=== PATIENT | male | born 1965 | race Caucasian/White ===

== ENCOUNTER → 2020-05-08 08:13 | Outpatient (CLI) | payer OTHER, SELFPAY ==
--- NOTE | ~2020-05-08 | XR_ITS ---
XR abdomen/kub 1V 05/08/2020 09:03 INDICATION: Gross hematuria TECHNIQUE: KUB COMPARISON: None FINDINGS: Bowel gas pattern is normal. There is no evidence of free air, mass, organomegaly, ascites or obstruction. There are punctate left renal stones. The bones appear intact. IMPRESSION: 1: Left nephrolithiasis. Reviewed, dictated and finalized at location A. IMPRESSION: 1: Left nephrolithiasis.
--- NOTE | ~2020-05-08 | CT_ITS ---
EXAMINATION: CT abdomen pelvis wo/w con DATE: 05/08/2020 09:03 INDICATION: Gross hematuria TECHNIQUE: Computed tomography (CT) of the abdomen and pelvis was performed without and with 130 cc O mnipaque 350 intravenous contrast. The dose-length product was 2064.66 mGy-cm. Automated exposure con trol and iterative reconstruction technique were employed. COMPARISON: None. FINDINGS: Lung bases are unremarkable. Small hiatal hernia. Heart size normal. No significant pleural or pericardial effusion. There are punctate nonobstructing 1-2 mm bilateral renal stones. The liver, spleen, pancreas, adrenal glands are unremarkable. No ureteral stones or hydronephrosis. Bladder is decompressed. Nonobstructi ve bowel gas pattern. Normal appendix. No lymphadenopathy. Mild osteoarthritis of the hips. Ureters a re normal in course and caliber. Gallbladder is present. No free air or free fluid. No osteolytic or osteoblastic lesions. IMPRESSION: 1. Nonobstructing bilateral nephrolithiasis. Reviewed, dictated and finalized at location A.
[2020-05-08 08:35] LABS: Estimated Glomerular Filt Rate > 60
== END ==
PROVIDERS: Visit Provider Urology
DX: R31.0 Gross hematuria (principal); N20.0 Calculus of kidney
CPT/HCPCS: 74018; 74178; Q9967

== ENCOUNTER 2020-06-27 21:50 | Inpatient (IN) | payer OTHER, SELFPAY ==
--- NOTE | ~2020-06-27 | XR_ITS ---
XR chest 1V portable DATE: 06/27/2020 22:30 INDICATION: Shortness of breath. Covid-positive patient. Low pO2 level. TECHNIQUE: Portable upright AP chest views on 06/27/2020 at 2220 hours COMPARISON: None FINDINGS: Heart size is borderline. No pulmonary infiltrate or consolidation, pleural effusion or pneumothorax. Aortic calcification and mild unfolding. IMPRESSION: Borderline heart size; no active pulmonary disease Reviewed, dictated and finalized at location A. ARD/STEWARDESS SMOKE ROOM
--- NOTE | ~2020-06-27 | XR_ITS ---
EXAMINATION: XR chest 1V portable DATE: 07/02/2020 16:59 INDICATION: Shortness of breath. COVID. TECHNIQUE: frontal view of the chest was obtained. COMPARISON: Chest radiograph dated 06/27/2020 FINDINGS: There is been some interval progression in patchy airspace opacities in the right lower lung zone. Mi nimal change in more subtle opacities in the left lower lung zone. No pleural effusion or pneumothora x. The cardiomediastinal silhouette is normal. Moderate degenerative skeletal changes in the spine an d bilateral shoulders. IMPRESSION: 1. There is been some progression of patchy opacities in the bilateral lower lung zones consistent wi th pneumonia with differential including pulmonary edema. Reviewed, dictated and finalized at location H. EN PRESS FEEDER IMPRESSION: 1. There is been some progression of patchy opacities in the bilateral lower taylor ng zones consistent with pneumonia with differential including pulmonary edema.
--- NOTE | ~2020-06-27 | XR_ITS ---
EXAMINATION: XR chest 1V portable EXAM DATE: 07/08/2020 06:14 INDICATION: COVID-19 pneumonia . TECHNIQUE: Portable AP frontal chest x-ray was obtained. Comparison is made to prior examination from 07/07. FINDINGS: There is bilateral moderate amount of acute airspace disease with regions of confluence, bi basilar predominant. Appearance is most consistent with COVID-19 pneumonia. Upper lung zones are kevin r. Cardiomediastinal silhouette is normal. There is no pneumothorax suspected. There are no pleural e ffusions. There are mild bony degenerative changes. Mild interval progression in airspace disease compared to 07/05, but difficult to identify any change compared to 07/07. IMPRESSION: Moderate amount of bilateral acute airspace disease, clinical correlation. Reviewed, dictated and finalized at location B. STANT PROFESSOR OF PHILOSOPHY IMPRESSION: Moderate amount of bilateral acute airspace disease, clinical corre lation.
--- NOTE | ~2020-06-27 | XR_ITS ---
XR abdomen NG/feed tube insert INDICATION: Evaluate NG tube position. TECHNIQUE: Limited KUB perform for evaluating NG tube . COMPARISON: KUB dated 05/08/2020 FINDINGS: NG tube tip in the stomach and the side-port above the expected location of the GE junction . Recommend NG tube advancement. There is a right pneumothorax. There is extensive bilateral airspace consolidation. Visualized bowel gas pattern is nonspecific. IMPRESSION: 1: NG tube tip in the stomach, side-port above the expected location of the GE junction. Recommend a dvancement 5-6 cm. 2: Right pneumothorax incompletely visualized. 3: Extensive bilateral airspace disease which may represent pneumonia or edema. Reviewed, dictated and finalized at location A. STANT PROPERTY MANAGER IMPRESSION: 1: NG tube tip in the stomach, side-port above the expected location of the GE junction. Recommend advancement 5-6 cm. 2: Right pneumothorax incompletely visualized. 3: Extensive bilateral airspace disease which may represent pneumonia or edema .
--- NOTE | ~2020-06-27 | XR_ITS ---
EXAMINATION: XR chest 1V portable EXAM DATE: 07/07/2020 06:05 INDICATION: COVID-19 pneumonia . TECHNIQUE: Portable AP frontal chest x-ray was obtained. Comparison is made to prior examination from 07/05/2020. FINDINGS: There is bilateral acute airspace disease with regions of confluence, bibasilar predominant . Appearance is most consistent with COVID-19 pneumonia. Upper lung zones are clear. Cardiomediastina l silhouette is normal. There is no pneumothorax suspected. There are no pleural effusions. There are mild bony degenerative changes. Mild interval progression in airspace disease compared to 07/05. IMPRESSION: Mild progression in the moderate amount of bilateral acute airspace disease, clinical cor relation. Reviewed, dictated and finalized at location A. ICULUM DIRECTOR IMPRESSION: Mild progression in the moderate amount of bilateral acute airspace disease, clinical correlation.
--- NOTE | ~2020-06-27 | XR_ITS ---
XR chest 1V portable DATE: 07/12/2020 05:48 INDICATION: Covid 19 pneumonia TECHNIQUE: Portable AP chest on 07/12/2020 at 0522 hours COMPARISON: 07/11/2020 portable AP chest at 0604 hours FINDINGS: ET tube tip 3.2 cm above lori in satisfactory position. NG tube in body of stomach. Left upper stomach the catheter tip overlies the caudal aspect of the superior vena cava not far from the superior cavoatrial junction. Right thoracostomy tube. Slight residual right apical pneumothorax is suggested. Diffuse patchy bilateral infiltrates, greater in the lower lung zones, relatively stable since 2019. IMPRESSION: Slight residual right apical pneumothorax with right thoracostomy tube remains No significant change of extensive bilateral interstitial infiltrates, greater in the lower lung zone s, since 07/11/2020 Reviewed, dictated and finalized at location A. L DESIGNER IMPRESSION: Slight residual right apical pneumothorax with right thoracostomy t ube remains No significant change of extensive bilateral interstitial infiltrates, greater in the lower lung zones, since 07/11/2020
--- NOTE | ~2020-06-27 | XR_ITS ---
XR chest 1V portable 07/09/2020 06:04 Indication: CovidPneumonia Procedure: AP portable chest Comparison: Comparison to multiple prior studies sequentially, with oldest reviewed study dated 06/16. Findings: Diffuse bilateral airspace disease, compatible with pneumonia. Findings have progressed sin ce prior examination. No significant pleural effusion or pneumothorax. Stable cardiomediastinal silho uette. No acute osseous abnormality. Impression: 1: Progression of diffuse bilateral airspace disease, compatible with pneumonia. Reviewed, dictated and finalized at location A. SEARCH SPECIALIST Impression: 1: Progression of diffuse bilateral airspace disease, compatible with pneumonia .
--- NOTE | ~2020-06-27 | XR_ITS ---
XR chest 1V portable DATE: 07/13/2020 06:18 INDICATION: Respiratory failure TECHNIQUE: Portable AP chest on 07/13/2020 at 0522 hours COMPARISON: Portable AP chest on 07/12/2020 at 0522 hours FINDINGS: ET tube is 3.5 cm above lori. NG tube in stomach. Left upper extremity PIC catheter tip at superior cavoatrial junction approximately. Right thoracostomy tube is present. There is slight residual right apical pneumothorax. Diffuse patchy bilateral pulmonary interstitial infiltrates persist, relatively stable since 07/12/20 20. IMPRESSION: Slight residual right apical pneumothorax; right thoracostomy tube Diffuse patchy bilateral pulmonary interstitial infiltrates are relatively stable since 07/12/2020 Reviewed, dictated and finalized at location A. ROOM SALES ASSISTANT IMPRESSION: Slight residual right apical pneumothorax; right thoracostomy tube Diffuse patchy bilateral pulmonary interstitial infiltrates are relatively stab le since 07/12/2020
--- NOTE | ~2020-06-27 | XR_ITS ---
EXAMINATION: XR chest 1V portable EXAM DATE: 07/05/2020 10:39 INDICATION: Hypoxic resp failure. TECHNIQUE: Portable AP frontal chest x-ray was obtained. Comparison is made to prior examination from 07/02/2020, 06/27/2020. FINDINGS: Again there is bibasilar acute airspace disease with small regions of confluence, right juice g base more affected than left. This has progressed slightly compared to 07/02, developed compared to 06/27. Appearance is most consistent with COVID-19 pneumonia. Upper lung zones are clear. Cardiomedi astinal silhouette is normal. There is no pneumothorax suspected. There are no pleural effusions. The re are mild bony degenerative changes. IMPRESSION: 1. Mild progression in the now moderate amount of bibasilar acute airspace disease, clinical correl ation. Reviewed, dictated and finalized at location A. RY CUTTER IMPRESSION: 1. Mild progression in the now moderate amount of bibasilar acute airspace di [facility] [place], clinical correlation.
--- NOTE | ~2020-06-27 | XR_ITS ---
XR chest 1V portable 07/10/2020 06:05 Indication: CovidPneumonia Procedure: AP portable chest Comparison: Comparison to multiple prior studies sequentially, with oldest reviewed study dated 06/17 Findings: Stable diffuse bilateral airspace disease, compatible with pneumonia. Heart size normal. No pleural effusion or pneumothorax.. Impression: 1: Stable diffuse bilateral airspace disease, compatible with pneumonia. Reviewed, dictated and finalized at location A. RVISOR NEWSPAPER DELIVERIES Impression: 1: Stable diffuse bilateral airspace disease, compatible with pneumonia.
--- NOTE | ~2020-06-27 | XR_ITS ---
XR chest 1V portable DATE: 07/11/2020 06:49 INDICATION: Covid 19 pneumonia TECHNIQUE: Portable AP chest on 07/11 2020 at 0604 hours COMPARISON: 07/10/2020 portable AP chest at 1317 hours FINDINGS: ET tube tip 4.9 cm above lori, within satisfactory range. NG tube in stomach. Left upper extremity PIC catheter tip is situated near the superior cavoatrial junction. Right thoracostomy tube is unchanged in position. Slight residual right apical pneumothorax, stable since 07/10. There are diffuse bilateral interstitial infiltrates, greater in the lower lung zones IMPRESSION: Stable slight residual right apical pneumothorax; right chest tube unchanged in position Diffuse bilateral pulmonary interstitial infiltrates, greatest in the lower lung zones, relatively st able since Reviewed, dictated and finalized at location A. TRICAL INSTALLATION INSPECTOR IMPRESSION: Stable slight residual right apical pneumothorax; right chest tube unchanged in position Diffuse bilateral pulmonary interstitial infiltrates, greatest in the lower juice g zones, relatively stable since
--- NOTE | ~2020-06-27 | XR_ITS ---
XR chest-chest tube insert/pos 07/10/2020 13:18 Indication: Chest tube insertion Procedure: AP portable chest Comparison: Comparison to multiple prior studies sequentially, with oldest reviewed study dated 06/17. Findings: Endotracheal tube tip 3.7 cm above the lori. NG tube in the stomach. Significant decrease d size of right pneumothorax post chest tube insertion. Persistent diffuse bilateral airspace disease , consistent with pneumonia. No pleural effusion. No acute osseous abnormality. Impression: 1: Significant reduction in size of right pneumothorax post chest tube insertion. Small residual apic al pneumothorax. 2: Persistent diffuse bilateral airspace disease, compatible with pneumonia. Reviewed, dictated and finalized at location A. S AND BUSINESS DEVELOPMENT MANAGER Impression: 1: Significant reduction in size of right pneumothorax post chest tube insertio n. Small residual apical pneumothorax. 2: Persistent diffuse bilateral airspace disease, compatible with pneumonia.
--- NOTE | ~2020-06-27 | XR_ITS ---
XR chest 1V portable DATE: 07/14/2020 06:00 INDICATION: Respiratory failure. Right pneumothorax. TECHNIQUE: Portable AP chest on 07/14/2020 at 0527 hours COMPARISON: 07/13/2020 portable AP chest at 0522 hours FINDINGS: Right thoracostomy tube is again noted. No pneumothorax is evident. ET tube 4 cm above lori. NG tube in stomach. Left upper extremity PIC catheter tip overlies superior vena cava. Extensive diffuse bilateral pulmonary infiltrates are again noted, moderately increased since 020. IMPRESSION: Moderately increased bilateral pulmonary infiltrates since 07/05/2020 Reviewed, dictated and finalized at location A. ERY STOCK CLERK IMPRESSION: Moderately increased bilateral pulmonary infiltrates since 07/05/20 20
--- NOTE | ~2020-06-27 | XR_ITS ---
EXAMINATION: XR chest ET placement EXAM DATE: 07/10/2020 12:55 INDICATION: Intubated. COVID-19. TECHNIQUE: Portable AP frontal chest x-ray was obtained. Comparison is made to prior examination from earlier same date. FINDINGS: Interval development of moderate to large right-sided pneumothorax. Endotracheal tube tip i s 5 centimeters above the lori. There is a nasogastric tube seen with tip collimated off the study , but below the left hemidiaphragm. There is moderate to severe amount of bilateral acute airspace disease consistent with COVID-19 pneum onia. Cardiomediastinal silhouette is normal. There are no osseous abnormalities identified. IMPRESSION: 1. Moderate to large right pneumothorax. Reportedly surgeon is already placing chest tube. 2. Moderate to severe amount of bilateral acute airspace disease unchanged. Reviewed, dictated and finalized at location B. OIL TRUCK DRIVER IMPRESSION: 1. Moderate to large right pneumothorax. Reportedly surgeon is already placin g chest tube. 2. Moderate to severe amount of bilateral acute airspace disease unchanged.
[2020-06-27 22:07] VITALS: BP 142/88; PULSE 85; RESP 27; TEMP 36.9; O2SAT 73
--- NOTE | 2020-06-27 22:10 | ECG_ITS ---
Measurements Intervals [place] Rate: 85 P: -57 AL: 90 QRS: 11 QRSD: 96 T: 5 QT: 349 QTc: 416 Interpretive Statements ECTOPIC ATRIAL RHYTHM WITH SHORT AL INTERVAL DELAYED PRECORDIAL R/S TRANSITION BORDERLINE ST-T WAVE ABNORMALITY- ANTEROLAT/INF LEADS BASELINE ARTIFACT- I, II, III, AVR, AVL, AVF ABNORMAL ECG Electronically Signed On 06-28-2020 9:04:44 GANG DRILL OPERATOR by Fabio Torres D.O.
[2020-06-27 22:22] LABS: Basophils Percent Auto 0.2 % (0.2-1.2); Hematocrit 41.2 % (42.0-52.0); Hemoglobin 14.1 g/dL (14.0-18.0); Immature Granulocyte Absolute 0.03 K/mm3 (0.00-0.031); Immature Granulocyte Percent A 0.5 % (0-0.5); Lymphocytes Percent Auto 13.8 % (18.3-44.2); Mean Corpuscular HGB Conc 34.2 g/dl (32-36); Mean Corpuscular Hemoglobin 32.4 pg (26-34); Mean Corpuscular Volume 94.7 fl (80-100); Mean Platelet Volume 9.5 fl (7.4-10.4); Monocytes Absolute Auto 0.5 K/mm3 (0.1-0.6); Monocytes Percent Auto 7.4 % (2.6-8.5); Neutrophils Absolute Auto 5.1 K/mm3 (1.3-6.7); Neutrophils Percent Auto 78.1 % (45.5-73.1); Platelet Count Result 166 k/mm3 (150-375); Red Blood Count 4.35 M/mm3 (4.6-6.20); Red Cell Distribution Width 12.6 % (11.5-14.5); White Blood Count 6.5 K/mm3 (4.5-10.0)
[2020-06-27 22:25] VITALS: PULSE 86; O2SAT 98
[2020-06-27 22:38] LABS: Anion Gap 8 mmol/L (8-16); Blood Urea Nitrogen 20 mg/dL (9-20); Calcium 9.1 mg/dL (8.4-10.2); Carbon Dioxide 30 mmol/L (22-30); Chloride 99 mmol/L (98-107); Estimated CRCL calculation 75 ml/min; Estimated Glomerular Filt Rate > 60; Glucose 107 mg/dL (75-110); Potassium 3.6 mmol/L (3.4-5.0); Sodium 137 mmol/L (137-145)
[2020-06-27 23:13] VITALS: BP 112/72; PULSE 95; RESP 27; O2SAT 95
[2020-06-27] MEDS: DEXAMETHASONE SOD PHOS INJ 4 MG/ML VIAL 6 MG IV PUSH (23:13)
--- NOTE | 2020-06-27 23:32 | ED.SOB ---
HPI - SOB/Dyspnea General Chief Complaint: Shortness of Breath/Dyspnea Stated Complaint: low pulse ox Time Seen by Provider: 06/27/20 22:05 History of Present Illness HPI Narrative: Patient is a 54-year-old male who presents to the ER with shortness of breath. 6 days ago patient began developing symptoms of COVID-19 including cough and shortness of breath. Reports he was tested 2 days ago and test came back positive today. Reports shortness of breath has increased recently. purchased a pulse oximeter that showed his oxygen saturation was in the 80s so he came to the ER to be evaluated. No chest pain or chest pressure. He is without nausea or vomiting. He has a wet productive cough. No real sinus congestion or sore throat. He thinks he may have been exposed when he went to have a endoscopy performed about 12 days prior to his symptoms starting. Related Data Home Medications Medication Instructions Recorded Confirmed azithromycin 06/27/20 Nexium 40 mg PO DAILY 06/28/20 06/28/20 Allergies Allergy/AdvReac Type Severity Reaction Status Date / Time No Known Allergies Allergy Verified 06/28/20 01:04 Review of Systems Review of Systems: All systems reviewed & are unremarkable except as noted in HPI and below Constitutional: Constitutional: Denies chills, Reports fatigue and Denies fever(s) ENT: Denies nasal congestion and Denies sore throat Respiratory: Respiratory: Reports cough, Reports dyspnea and Denies wheezing PMFSH Past Medical History Medical History (Updated 06/28/20 @ 01:06 by Robby Cazares MD) Barretts esophagus GERD (gastroesophageal reflux disease) Surgical History Surgical History (Updated 06/28/20 @ 00:59 by Robby Cazares MD) H/O inguinal hernia repair Family History Family History (Updated 06/28/20 @ 00:49 by Destini Guerra RN) Mother Colon cancer Diabetes mellitus Father Colon cancer Social History Social History Smoking status: Former smoker Tobacco type: cigarettes Alcohol intake: current Drinks per week: 14 Substance use: never Gender identity (if verbalized by the patient): Male Spiritual care concerns: No Exam Narrative: Exam Narrative: GENERAL: Well-appearing, well-nourished, and in no acute distress. HEAD: Normocephalic, atraumatic. CHEST: Diffuse faint crackles. No respiratory distress. HEART: Regular rate and rhythm. Normal peripheral pulses. ABDOMEN: Soft, nontender, nondistended. EXTREMITIES: Normal range of motion. No edema. SKIN: Warm, dry, no rash. NEURO: Alert and oriented x3. PSYCH: Normal mood and affect. Course Course Emergency Course: Patient persistently oxygen dependent. Admit to hospitalist service, given IV Decadron. Vital Signs Vital signs: Vital Signs Temperature 98.5 F 06/27/20 22:07 Pulse Rate 85 06/27/20 22:07 Respiratory Rate 27 H 06/27/20 22:07 Blood Pressure 142/88 H 06/27/20 22:07 Pulse Oximetry 73 L 06/27/20 22:07 Temperature 98.5 F 06/27/20 22:07 Pulse Rate 70 06/28/20 00:20 Respiratory Rate 23 H 06/28/20 00:20 Blood Pressure 111/77 06/28/20 00:20 Pulse Oximetry 96 06/28/20 00:20 MDM - SOB/Dyspnea Lab Data Result diagrams: 06/27/20 22:12 06/27/20 22:12 Labs: Lab Results 06/27/20 06/27/20 Range/Units 22:12 22:12 WBC 6.5 (4.5-10.0) K/mm3 RBC 4.35 L (4.6-6.20) M/mm3 Hgb 14.1 (14.0-18.0) g/dL Hct 41.2 L (42.0-52.0) % MCV 94.7 (80-100) fl MCH 32.4 (26-34) pg MCHC 34.2 (32-36) g/dl RDW 12.6 (11.5-14.5) % Plt Count 166 (150-375) k/mm3 MPV 9.5 (7.4-10.4) fl Immature Gran % (Auto) 0.5 (0-0.5) % Neut % (Auto) 78.1 H (45.5-73.1) % Lymph % (Auto) 13.8 L (18.3-44.2) % [place] % (Auto) 7.4 (2.6-8.5) % Eos % (Auto) 0.0 (0-4.4) % Baso % (Auto) 0.2 (0.2-1.2) % Lymph # (Auto) 0.90 (0.9-3.2) K/mm3 [place] # (Auto) 0.5 (0.1-0.6) K/mm3 Eos # (Auto) 0.0 (0-0.3
--- NOTE | 2020-06-27 23:51 | PM.IMHP ---
H&P: HPI History of Present Illness Date/Time: 06/27/20 23:51 Chief complaint: SOB. Narrative: Danny Alfaro is a 54 year old male with PMHx significant for GERD, former Tobacco user, drinks daily although has not been drinking since he got sick. Patient was having cough and sob was tested for Covid that came back positive 2 days after, purchased pulse oxymeter to monitor oxygen levels at home and was in the 80's upon presentation to ED was in the 70's. Patient denies loss of smell or taste, has had fevers, and chills with it, dry cough non productive of sputum, sob, decreased appetite, no n/v/abdominal pain/diarrhea. Patient has been in his usual state of health prior to this. Preliminary work up is significant for a positive Covid 19, chest xr with no infiltrates. Review of Systems Review of Systems: Narrative: Fevers, chills, dry cough, sob. Positive Covid 19. Eyes: Comments: no vision changes. ENT: Comments: no ear ache, no throat pain, no nasal congestion or discharge. Cardiovascular: Comments: no chest pain, no leg swelling. Respiratory: Comments: dry cough, sob. Gastrointestinal: Comments: no n/v/diarrhea/abdominal pain. Musculoskeletal: Comments: no joint pain, no joint swelling. Integumentary/Breasts: Comments: no rashes. Neurologic: Comments: no sensorymotor deficit. Hematologic/Lymphatic: Comments: no LAP PMFSH Past Medical History Medical History (Updated 06/28/20 @ 03:35 by Lynnette Blanco MD) Barretts esophagus GERD (gastroesophageal reflux disease) Surgical History Surgical History (Updated 06/28/20 @ 00:59 by Robby Cazares MD) H/O inguinal hernia repair Family History Family History (Updated 06/28/20 @ 00:49 by Destini Guerra RN) Mother Colon cancer Diabetes mellitus Father Colon cancer Social History Social History Smoking status: Former smoker Tobacco type: cigarettes Alcohol intake: current Drinks per week: 14 Substance use: never Gender identity (if verbalized by the patient): Male Spiritual care concerns: No Meds Home Medications and Allergies Home Medications Medication Instructions Recorded Confirmed Type azithromycin [Zithromax Z-Rinku] 250 mg PO DAILY 06/27/20 06/28/20 History Nexium 40 mg PO DAILY 06/28/20 06/28/20 History Allergies Allergy/AdvReac Type Severity Reaction Status Date / Time No Known Allergies Allergy Verified 06/28/20 01:04 Vital Signs Vital Signs - 24 hr 06/27/20 22:07 06/27/20 22:25 06/27/20 23:13 Temperature 98.5 F Pulse Rate 85 86 95 Respiratory Rate 27 H 27 H Blood Pressure 142/88 H 112/72 Pulse Oximetry 73 L 98 95 Exam Narrative: Exam Narrative: Lying in bed, well appearing. Const: General: cooperative, comfortable, no acute distress, alert, awake, Physically active and other (Acutely ill looking.) Nutritional Appearance: average body habitus Orientation/consciousness: patient oriented x3 HENMT: Head: normal to inspection and normocephalic Ears: hearing grossly normal bilaterally General nose exam: Normal external nose present Face and sinus: normal facial exam Mouth: Yes Normal oral and palatal mucosa present Eyes: General: appearance normal, both eyes and all related structures Pupils: Equal, round and reactive pupils present EOM: EOMs intact bilaterally Neck: Neck: normal visual inspection, no lymphadenopathy and no JVD Thyroid: thyroid normal Resp: Effort & Inspection: normal respiratory effort and able to speak in complete sentences Auscultation: clear to auscultation bilaterally Cardio: Jugular venous distension: no JVD Rate: regular rate Rhythm: regular rhythm GI: Inspection: normal to inspection GI Palp: Yes Soft to palpation and Yes No hepatosplenomegaly present Auscultation: normal bowel sounds Skin: General skin exam: no rashes or lesions noted Lesions: no lesions Rashes: no rashes Hair: normal Nails: normal Neuro: General: patient oriented x3 a
[2020-06-27 23:57] VITALS: BP 110/74; PULSE 80; RESP 23; O2SAT 95
[2020-06-28] VITALS (13 sets, daily range): BP systolic 106–134; BP diastolic 54–77; PULSE 66–95; RESP 16–23; TEMP 36.4–38.9; O2SAT 90–96; BMI 30.2
--- NOTE | 2020-06-28 00:40 | PC.NURSE ---
This patient, Danny Alfaro, was admitted to [facility] Surg Room 324-01. Patient/family oriented to hospital policies and general routines including ID bracelet, bed and alarms, visiting hours, pain management, procedures, bathroom and other care routines, personal items, smoking policy, room service/diet, and visiting hours. Information on how to activate the Rapid Response Team has been discussed. Patient/Family are encouraged to report perceived risks to care and to ask questions if they do not understand what they are told or what they should do.
[2020-06-28] MEDS: ACETAMINOPHEN 325 MG TABLET 650 MG PO ×3 (01:14→22:05)
[2020-06-28 04:22] LABS: Basophils Percent Auto 0.2 % (0.2-1.2); Hematocrit 38.1 % (42.0-52.0); Hemoglobin 13.2 g/dL (14.0-18.0); Immature Granulocyte Absolute 0.04 K/mm3 (0.00-0.031); Immature Granulocyte Percent A 0.7 % (0-0.5); Lymphocytes Absolute Auto 0.35 K/mm3 (0.9-3.2); Lymphocytes Percent Auto 6.4 % (18.3-44.2); Mean Corpuscular HGB Conc 34.6 g/dl (32-36); Mean Corpuscular Hemoglobin 32.6 pg (26-34); Mean Corpuscular Volume 94.1 fl (80-100); Mean Platelet Volume 9.4 fl (7.4-10.4); Monocytes Absolute Auto 0.2 K/mm3 (0.1-0.6); Monocytes Percent Auto 3.5 % (2.6-8.5); Neutrophils Absolute Auto 4.8 K/mm3 (1.3-6.7); Neutrophils Percent Auto 89.2 % (45.5-73.1); Platelet Count Result 143 k/mm3 (150-375); Red Blood Count 4.05 M/mm3 (4.6-6.20); Red Cell Distribution Width 12.5 % (11.5-14.5); White Blood Count 5.4 K/mm3 (4.5-10.0)
[2020-06-28 04:33] LABS: Alanine Aminotransferase 52 U/L (4-50); Albumin Level 3.6 g/dL (3.5-5.1); Alkaline Phosphatase 63 U/L (38-126); Aspartate Amino Transferase 69 U/L (17-59); Bilirubin Indirect 0.4 mg/dL (0-1.1); Bilirubin,Total 0.5 mg/dL (0.2-1.3)
[2020-06-28] MEDS: REMDESIVIR 200 MG/NS 250 ML 200 MG/250 ML BAG 250 MG IVPB (05:55)
[2020-06-28] MEDS: ALBUTEROL SULFATE (*SP) AEROSOL 1 PUFF 4 PUFF INHALATION ×4 (07:47→22:06)
[2020-06-28] MEDS: HEPARIN SODIUM 5,000 UNITS/ML VIAL 5000 UNITS SUB-Q (09:44)
[2020-06-28] MEDS: PANTOPRAZOLE 40 MG TABLET PO (09:44)
[2020-06-28] MEDS: DEXAMETHASONE 2 MG TABLET 6 MG PO (12:00)
--- NOTE | 2020-06-28 13:10 | PM.IMPN ---
Progress Note: A&P Assessment and Plan (1) Pneumonia due to 2019 novel coronavirus: Code(s): U07.1 - COVID-19; J12.89 - Other viral pneumonia Status: Acute (2) Acute respiratory failure with hypoxia: Code(s): J96.01 - Acute respiratory failure with hypoxia Status: Acute (3) COVID-19: Code(s): U07.1 - COVID-19 Status: Acute (4) Hypoxia: Code(s): R09.02 - Hypoxemia Status: Acute Additional Plan # COVID-19 pneumonia # acute hypoxic respiratory failure - continue supplemental oxygen to keep oxygen saturation greater 90%, currently on 4 L oxygen - started remdesivir/dexamethasone 06/28- - supplements: zinc, vitamin-C, vitamin-D - MDI: Albuterol - Tylenol for fever - incentive spirometer q.2 hour while awake - Cough: Guaifenesin 100 mg q.4 hours - nausea: zofran #other conditions -GERD: Nexium at home, given Protonix Diet: Regular DVT prophylaxis: Lovenox 40mg BID for covid-19 GI prophylaxis: Protonix, on steroids Code status: Full code Disposition: Medical floor Subjective Date/time seen: 06/28/20 13:10 Patient examined bedside. Patient diagnosis COVID-19 06/25/2020. yesterday he was admitted started on 2 L of oxygen, this morning he has been up titrated to 4 L. Started on Remdesivir and dexamethasone. continue supportive care. Patient endorses fever, cough with yellow sputum, chills, chest pain with cough. Denies abdominal pain, diarrhea, dysuria, dysguesia. Review of Systems Review of Systems: All systems reviewed & are unremarkable except as noted in HPI and below Exam Narrative: Exam Narrative: - GENERAL: pleasant male in no acute distress breathing comfortably on 4L O2 - EYES: EOMI. Anicteric. - HENT: Moist mucous membranes. No scleral icterus. - LUNGS: Clear to auscultation bilaterally, no wheezing, rhonchi, or rales. - CARDIOVASCULAR: Regular rate and rhythm. No murmur. No JVD. - ABDOMEN: Soft, non-tender and non-distended. No palpable masses. - EXTREMITIES: No edema. Peripheral pulses 2+. Non-tender. - NEUROLOGIC: No focal neurological deficits. CN II-XII grossly intact. - PSYCHIATRIC: Awake, Alert and oriented x 3. Appropriate mood and affect. - SKIN: No rashes or lesions. Warm. - LYMPH: No cervical lymphadenopathy. Objective Data Vital Signs Vital Signs: Vital Signs - 24 hr 06/27/20 22:07 06/27/20 22:25 06/27/20 23:13 Temperature 36.9 C Pulse Rate 85 86 95 Respiratory Rate 27 H 27 H Blood Pressure 142/88 H 112/72 Pulse Oximetry 73 L 98 95 06/27/20 23:57 06/28/20 00:20 06/28/20 00:40 Temperature 38.9 C H Pulse Rate 80 70 81 Respiratory Rate 23 H 23 H 20 Blood Pressure 110/74 111/77 123/73 Pulse Oximetry 95 96 91 06/28/20 01:05 06/28/20 02:14 06/28/20 02:45 Temperature 37.3 C Pulse Rate 81 Respiratory Rate 20 Blood Pressure Pulse Oximetry 91 91 06/28/20 04:00 06/28/20 07:48 06/28/20 08:00 Temperature 37.3 C 36.7 C Pulse Rate 66 87 79 Respiratory Rate 22 H 18 18 Blood Pressure 106/54 L 129/65 Pulse Oximetry 94 92 90 06/28/20 12:00 Temperature 37.6 C H Pulse Rate 95 Respiratory Rate 16 Blood Pressure 110/64 Pulse Oximetry 90 Intake/Output Intake/Output: Intake & Output 06/25/20 06/26/20 06/27/20 06/28/20 23:59 23:59 23:59 23:59 Intake Total 550 Output Total 0 Balance 550 Meds/Results Medications: Active Medications Generic Name Dose Route Start Last Admin Trade Name Freq PRN Reason Stop Dose Admin Acetaminophen 650 mg 06/27/20 23:51 06/28/20 12:15 Acetaminophen 325 Mg Tablet PO 650 mg Q4H PRN Administration Mild Pain (1-3) or Fever Hydrocodone Bitart/Acetaminophen 1 tab 06/27/20 23:38 Hydrocodone/Acetaminophen (*Crx) 5-325 Mg Tablet PO Q4H PRN Pain Rated 4-6 Al Hydrox/Mg Hydrox/Simethicone 30 ml 06/27/20 23:51 Mag Hydrox/Al Hydrox/Simeth 30 Ml Udc PO QID PRN Dyspepsia Albuterol 4 puff 06/28/20 08:00 06/28/20 12:57
[2020-06-28] MEDS: ZINC SULFATE 220 MG CAPSULE PO (15:38)
[2020-06-28] MEDS: CHOLECALCIFEROL 1,000 UNITS TABLET 1000 UNITS PO (15:38)
[2020-06-28] MEDS: ASCORBIC ACID 500 MG TABLET PO (15:38)
[2020-06-28] MEDS: ENOXAPARIN 40 MG/0.4 ML SYRINGE SUB-Q (22:05)
[2020-06-29] VITALS (12 sets, daily range): BP systolic 102–118; BP diastolic 58–69; PULSE 51–81; RESP 18–22; TEMP 36.4–36.8; O2SAT 88–97
[2020-06-29] MEDS: REMDESIVIR 100 MG/NS 250 ML 100 MG/250 ML BAG 250 MG IVPB (06:31)
[2020-06-29 06:41] LABS: Alanine Aminotransferase 85 U/L (4-50); Albumin Level 3.6 g/dL (3.5-5.1); Alkaline Phosphatase 64 U/L (38-126); Anion Gap 12 mmol/L (8-16); Aspartate Amino Transferase 114 U/L (17-59); Bilirubin,Total 0.5 mg/dL (0.2-1.3); Blood Urea Nitrogen 25 mg/dL (9-20); Calcium 9.3 mg/dL (8.4-10.2); Carbon Dioxide 26 mmol/L (22-30); Chloride 98 mmol/L (98-107); Estimated CRCL calculation 93 ml/min; Estimated Glomerular Filt Rate > 60; Glucose 123 mg/dL (75-110); Potassium 3.8 mmol/L (3.4-5.0); Sodium 136 mmol/L (137-145)
--- NOTE | 2020-06-29 08:28 | PC.NURSE ---
Called and notified Dr Rizvi of pt o2 stat dereasing to 85 on 4lpm nc. pt slow increased to 90% on High flow nasal cannula. no complaint of sob at this time. Doctor said if we have to put pt on 15l we will have to use NRB over nasal cannula.
[2020-06-29] MEDS: DEXAMETHASONE 2 MG TABLET 6 MG PO (08:40)
[2020-06-29] MEDS: ENOXAPARIN 40 MG/0.4 ML SYRINGE SUB-Q ×2 (08:40→21:13)
[2020-06-29] MEDS: ACETAMINOPHEN 325 MG TABLET 650 MG PO (08:41)
[2020-06-29] MEDS: PANTOPRAZOLE 40 MG TABLET PO (08:41)
[2020-06-29] MEDS: ASCORBIC ACID 500 MG TABLET PO (08:41)
[2020-06-29] MEDS: ZINC SULFATE 220 MG CAPSULE PO (08:41)
[2020-06-29] MEDS: CHOLECALCIFEROL 1,000 UNITS TABLET 1000 UNITS PO (08:42)
[2020-06-29] MEDS: ALBUTEROL SULFATE (*SP) AEROSOL 1 PUFF 4 PUFF INHALATION ×4 (09:33→21:50)
--- NOTE | 2020-06-29 10:53 | PM.IMPN ---
Progress Note: A&P Assessment and Plan (1) Pneumonia due to 2019 novel coronavirus: Code(s): U07.1 - COVID-19; J12.89 - Other viral pneumonia Status: Acute (2) Acute respiratory failure with hypoxia: Code(s): J96.01 - Acute respiratory failure with hypoxia Status: Acute (3) COVID-19: Code(s): U07.1 - COVID-19 Status: Acute Assessment and Plan: Started Remdesivir + Decadron. (4) Hypoxia: Code(s): R09.02 - Hypoxemia Status: Acute Additional Plan # COVID-19 pneumonia # acute hypoxic respiratory failure - continue supplemental oxygen to keep oxygen saturation greater 90%, currently on 9 L oxygen - started remdesivir/dexamethasone 06/28- - supplements: zinc, vitamin-C, vitamin-D - MDI: Albuterol scheduled and p.r.n. - Tylenol for fever - incentive spirometer q.2 hour while awake - Cough: Guaifenesin 200 mg q.4 hours - nausea: zofran - Adding ibuprofen for headache - will trend inflammatory markers Q 48 hours #other conditions -GERD: Nexium at home, given Protonix, adding Tums - may have underlying sleep apnea will need evaluation outpatient Diet: Regular DVT prophylaxis: Lovenox 40mg BID for covid-19 GI prophylaxis: Protonix, on steroids Code status: Full code Disposition: Medical floor Social: Updated [phone] on 06/29/2020 Subjective Date/time seen: 06/29/20 10:53 patient examined. Overnight he has oxygen saturation dropped to 84%, was put on 11 L high-flow oxygen. He may have underlying sleep apnea. I called and discussed with his and updated her on his clinical course. Currently he is on 9 L oxygen sitting comfortably. Starting Tums for acid reflux on top of the Protonix he is on likely irritation from steroids. Review of Systems Review of Systems: All systems reviewed & are unremarkable except as noted in HPI and below Exam Narrative: Exam Narrative: - GENERAL: pleasant male in no acute distress breathing comfortably on 9L O2 - EYES: EOMI. Anicteric. - HENT: Moist mucous membranes. No scleral icterus. - LUNGS: Clear to auscultation bilaterally, no wheezing, rhonchi, or rales. - CARDIOVASCULAR: Regular rate and rhythm. No murmur. No JVD. - ABDOMEN: Soft, non-tender and non-distended. No palpable masses. - EXTREMITIES: No edema. Peripheral pulses 2+. Non-tender. - NEUROLOGIC: No focal neurological deficits. CN II-XII grossly intact. - PSYCHIATRIC: Awake, Alert and oriented x 3. Appropriate mood and affect. - SKIN: No rashes or lesions. Warm. - LYMPH: No cervical lymphadenopathy. Objective Data Vital Signs Vital Signs: Vital Signs - 24 hr 06/28/20 12:00 06/28/20 16:00 06/28/20 16:05 Temperature 37.6 C H 36.4 C L Pulse Rate 95 83 84 Respiratory Rate 16 18 18 Blood Pressure 110/64 134/74 Pulse Oximetry 90 92 06/28/20 16:07 06/28/20 20:00 06/29/20 00:00 Temperature 36.6 C 36.7 C Pulse Rate 89 70 68 Respiratory Rate 18 18 20 Blood Pressure 118/62 118/68 Pulse Oximetry 94 96 91 06/29/20 03:49 06/29/20 04:00 06/29/20 08:00 Temperature 36.7 C Pulse Rate 81 65 58 L Respiratory Rate 18 20 18 Blood Pressure 112/62 Pulse Oximetry 95 90 90 06/29/20 09:34 Temperature Pulse Rate Respiratory Rate Blood Pressure Pulse Oximetry 90 Intake/Output Intake/Output: Intake & Output 06/26/20 06/27/20 06/28/20 06/29/20 23:59 23:59 23:59 23:59 Intake Total 2140 700 Output Total 950 800 Balance 1190 -100 Meds/Results Medications: Active Medications Generic Name Dose Route Start Last Admin Trade Name Freq PRN Reason Stop Dose Admin Acetaminophen 650 mg 06/27/20 23:51 06/29/20 08:41 Acetaminophen 325 Mg Tablet PO 650 mg Q4H PRN Administration Mild Pain (1-3) or Fever Hydrocodone Bitart/Acetaminophen 1 tab 06/27/20 23:38 Hydrocodone/Acetaminophen (*Crx) 5-325 Mg Tablet PO Q4H PRN Pain Rated 4-6 Al Hydrox/Mg Hydrox/Simethicone 30 ml 06/27/20 23:51 Mag Hyd
[2020-06-29] MEDS: CALCIUM CARBONATE (TUMS) 500 MG (200 MG ELEMENTAL) PO (14:49)
--- NOTE | 2020-06-29 17:28 | PC.NURSE ---
Notified Dr cordero of increasing o2 form 9 LPM to 13LPM. Pt is reminded to take intermittent slow breaths.
[2020-06-30] VITALS (11 sets, daily range): BP systolic 98–113; BP diastolic 59–67; PULSE 57–69; RESP 18–20; TEMP 36.4–36.8; O2SAT 90–95
[2020-06-30] MEDS: REMDESIVIR 100 MG/NS 250 ML 100 MG/250 ML BAG 250 MG IVPB (05:39)
[2020-06-30 07:35] LABS: Hematocrit 37.9 % (42.0-52.0); Mean Corpuscular HGB Conc 34.3 g/dl (32-36); Mean Corpuscular Hemoglobin 32.8 pg (26-34); Mean Corpuscular Volume 95.7 fl (80-100); Mean Platelet Volume 9.5 fl (7.4-10.4); Platelet Count Result 214 k/mm3 (150-375); Red Blood Count 3.96 M/mm3 (4.6-6.20); Red Cell Distribution Width 12.6 % (11.5-14.5); White Blood Count 8.8 K/mm3 (4.5-10.0)
[2020-06-30 08:14] LABS: Alanine Aminotransferase 70 U/L (4-50); Albumin Level 3.4 g/dL (3.5-5.1); Alkaline Phosphatase 60 U/L (38-126); Anion Gap 8 mmol/L (8-16); Aspartate Amino Transferase 67 U/L (17-59); Bilirubin,Total 0.4 mg/dL (0.2-1.3); Blood Urea Nitrogen 29 mg/dL (9-20); Calcium 8.7 mg/dL (8.4-10.2); Carbon Dioxide 30 mmol/L (22-30); Chloride 102 mmol/L (98-107); Estimated CRCL calculation 104 ml/min; Estimated Glomerular Filt Rate > 60; Glucose 112 mg/dL (75-110); Sodium 140 mmol/L (137-145)
[2020-06-30 08:18] LABS: CRP 4.4 mg/dL (<1.0); Lactate Dehydrogenase 1091 U/L (313-618)
[2020-06-30] MEDS: ALBUTEROL SULFATE (*SP) AEROSOL 1 PUFF 4 PUFF INHALATION ×4 (08:23→22:43)
[2020-06-30 08:27] LABS: Magnesium 2.4 mg/dL (1.6-2.3)
[2020-06-30 08:30] LABS: Alanine Aminotransferase 68 U/L (4-50)
[2020-06-30] MEDS: DEXAMETHASONE 2 MG TABLET 6 MG PO (09:22)
[2020-06-30] MEDS: PANTOPRAZOLE 40 MG TABLET PO (09:22)
[2020-06-30] MEDS: ZINC SULFATE 220 MG CAPSULE PO (09:22)
[2020-06-30] MEDS: ENOXAPARIN 40 MG/0.4 ML SYRINGE SUB-Q ×2 (09:22→21:31)
[2020-06-30] MEDS: ASCORBIC ACID 500 MG TABLET PO (09:23)
[2020-06-30] MEDS: CHOLECALCIFEROL 1,000 UNITS TABLET 1000 UNITS PO (09:23)
--- NOTE | 2020-06-30 13:15 | PM.IMPN ---
Progress Note: A&P Assessment and Plan (1) Pneumonia due to 2019 novel coronavirus: Code(s): U07.1 - COVID-19; J12.89 - Other viral pneumonia Status: Acute (2) Acute respiratory failure with hypoxia: Code(s): J96.01 - Acute respiratory failure with hypoxia Status: Acute (3) COVID-19: Code(s): U07.1 - COVID-19 Status: Acute Assessment and Plan: Started Remdesivir + Decadron. (4) Hypoxia: Code(s): R09.02 - Hypoxemia Status: Acute Additional Plan # COVID-19 pneumonia # acute hypoxic respiratory failure - continue supplemental oxygen to keep oxygen saturation greater 90%, currently on 9 L oxygen - started remdesivir/dexamethasone 06/28- - supplements: zinc, vitamin-C, vitamin-D - MDI: Albuterol scheduled and p.r.n. - Tylenol for fever - incentive spirometer q.2 hour while awake - Cough: Guaifenesin 200 mg q.4 hours - nausea: zofran - ibuprofen for headache - will trend inflammatory markers Q 48 hours - giving convalescent plasma today 06/30/2020 while requiring significant oxygen support #other conditions -GERD: Nexium at home, given Protonix, adding Tums - may have underlying sleep apnea will need evaluation outpatient Diet: Regular DVT prophylaxis: Lovenox 40mg BID for covid-19 GI prophylaxis: Protonix, on steroids Code status: Full code Disposition: Medical floor Social: Updated [phone] on 06/29/2020 Subjective Date/time seen: 06/30/20 13:15 Patient examined bedside. He is on 15 L high-flow oxygen and non-rebreather 15 L. he takes his oxygen off to eat breakfast he will desaturate into the 80s. Discussed with storage worker who recommended giving convalescent plasma if within 1 week of onset of symptoms, giving 1 dose today. Continuing supportive care. If he further decompensates he will need to go to for airvo. Patient denies fever, chills, nausea, vomiting, diarrhea. He states his headache resolved. Review of Systems Review of Systems: All systems reviewed & are unremarkable except as noted in HPI and below Exam Narrative: Exam Narrative: - GENERAL: pleasant male breathing comfortably despite being on 15 L oxygen high-flow and 15 L non-rebreather - EYES: EOMI. Anicteric. - HENT: Moist mucous membranes. No scleral icterus. - LUNGS: Difficult to auscultate, diminished otherwise clear - CARDIOVASCULAR: Regular rate and rhythm. No murmur. No JVD. - ABDOMEN: Soft, non-tender and non-distended. No palpable masses. - EXTREMITIES: No edema. Peripheral pulses 2+. Non-tender. - NEUROLOGIC: No focal neurological deficits. CN II-XII grossly intact. - PSYCHIATRIC: Awake, Alert and oriented x 3. Appropriate mood and affect. - SKIN: No rashes or lesions. Warm. - LYMPH: No cervical lymphadenopathy. Objective Data Vital Signs Vital Signs: Vital Signs - 24 hr 06/29/20 16:00 06/29/20 19:46 06/29/20 20:00 Temperature 36.7 C 36.4 C Pulse Rate 70 63 Respiratory Rate 18 22 H Blood Pressure 110/69 109/62 Pulse Oximetry 91 88 L 93 06/29/20 21:13 06/29/20 22:38 06/29/20 22:39 Temperature Pulse Rate 67 67 Respiratory Rate 20 Blood Pressure Pulse Oximetry 97 92 06/30/20 00:00 06/30/20 04:00 06/30/20 08:00 Temperature 36.4 C 36.6 C 36.6 C Pulse Rate 69 58 L 59 L Respiratory Rate 20 20 20 Blood Pressure 111/67 101/60 98/60 L Pulse Oximetry 93 95 92 06/30/20 08:23 06/30/20 09:20 06/30/20 09:21 Temperature Pulse Rate 57 L Respiratory Rate 18 Blood Pressure Pulse Oximetry 94 92 92 Intake/Output Intake/Output: Intake & Output 06/27/20 06/28/20 06/29/20 06/30/20 23:59 23:59 23:59 23:59 Intake Total 2140 1385 570 Output Total 950 1400 Balance 1190 -15 570 Meds/Results Medications: Active Medications Generic Name Dose Route Start Last Admin Trade Name Freq PRN Reason Stop Dose Admin Acetaminophen 650 mg 06/27/20 23:51 06/29/20 08:41 Acetaminophen 325 Mg Tablet PO 650 mg Q4H PRN Admi
[2020-07-01] VITALS (13 sets, daily range): BP systolic 107–125; BP diastolic 60–71; PULSE 52–71; RESP 16–20; TEMP 36.6–37; O2SAT 91–95
[2020-07-01] MEDS: REMDESIVIR 100 MG/NS 250 ML 100 MG/250 ML BAG 250 MG IVPB (05:51)
[2020-07-01 07:16] LABS: Hematocrit 40.5 % (42.0-52.0); Hemoglobin 13.5 g/dL (14.0-18.0); Mean Corpuscular HGB Conc 33.3 g/dl (32-36); Mean Corpuscular Hemoglobin 32.3 pg (26-34); Mean Corpuscular Volume 96.9 fl (80-100); Mean Platelet Volume 9.4 fl (7.4-10.4); Platelet Count Result 225 k/mm3 (150-375); Red Blood Count 4.18 M/mm3 (4.6-6.20); Red Cell Distribution Width 12.8 % (11.5-14.5); White Blood Count 9.5 K/mm3 (4.5-10.0)
[2020-07-01 07:37] LABS: Alanine Aminotransferase 75 U/L (4-50); Albumin Level 3.2 g/dL (3.5-5.1); Alkaline Phosphatase 73 U/L (38-126); Anion Gap 4 mmol/L (8-16); Aspartate Amino Transferase 66 U/L (17-59); Bilirubin,Total 0.6 mg/dL (0.2-1.3); Blood Urea Nitrogen 28 mg/dL (9-20); Calcium 8.7 mg/dL (8.4-10.2); Carbon Dioxide 32 mmol/L (22-30); Chloride 103 mmol/L (98-107); Estimated CRCL calculation 104 ml/min; Estimated Glomerular Filt Rate > 60; Glucose 93 mg/dL (75-110); Sodium 139 mmol/L (137-145)
[2020-07-01] MEDS: ASCORBIC ACID 500 MG TABLET PO (08:59)
[2020-07-01] MEDS: PANTOPRAZOLE 40 MG TABLET PO (09:00)
[2020-07-01] MEDS: CHOLECALCIFEROL 1,000 UNITS TABLET 1000 UNITS PO (09:00)
[2020-07-01] MEDS: ENOXAPARIN 40 MG/0.4 ML SYRINGE SUB-Q ×2 (09:00→20:38)
[2020-07-01] MEDS: DEXAMETHASONE 2 MG TABLET 6 MG PO (09:00)
[2020-07-01] MEDS: ZINC SULFATE 220 MG CAPSULE PO (09:00)
[2020-07-01] MEDS: WATER FOR IRRIGATION, STERILE 1,000 ML BOTTLE 1000 ML (09:01)
--- NOTE | 2020-07-01 15:17 | PM.IMPN ---
Progress Note: A&P Assessment and Plan (1) Pneumonia due to 2019 novel coronavirus: Code(s): U07.1 - COVID-19; J12.89 - Other viral pneumonia Status: Acute (2) Acute respiratory failure with hypoxia: Code(s): J96.01 - Acute respiratory failure with hypoxia Status: Acute (3) COVID-19: Code(s): U07.1 - COVID-19 Status: Acute (4) Hypoxia: Code(s): R09.02 - Hypoxemia Status: Acute Additional Plan # COVID-19 pneumonia # acute hypoxic respiratory failure - continue supplemental oxygen to keep oxygen saturation greater 90%, currently on 10 L oxygen high flow and 15L non-rebreather, Oxygen on high-flow has come down from 15 to 10 L, I am cautiously optimistic - started remdesivir/dexamethasone 06/28- - supplements: zinc, vitamin-C, vitamin-D - Albuterol nebulizer scheduled and MDI p.r.n. - Tylenol for fever - incentive spirometer q.2 hour while awake - Cough: Guaifenesin 200 mg q.4 hours - nausea: zofran - ibuprofen for headache - will trend inflammatory markers Q 48 hours - convalescent plasma ordered 06/30/2020 however there was difficulty in finding a good blood match #other conditions -GERD: Nexium at home, given Protonix, adding Tums - may have underlying sleep apnea will need evaluation outpatient Diet: Regular DVT prophylaxis: Lovenox 40mg BID for covid-19 GI prophylaxis: Protonix, on steroids Code status: Full code Disposition: Medical floor Social: [phone] Subjective Date/time seen: 07/01/20 15:17 Patient examined bedside. He is requiring 10 L oxygen nasal cannula high-flow, 15 L non-rebreather. The high-flow oxygen went down from 15 to 10 L otherwise he is stable. We can do nebulizer treatments because air filter dabs, switching albuterol inhaler to albuterol nebulizer treatments 5 mg q.6 hours. Otherwise continuing therapy as is. Patient denies fever, chills, nausea, vomiting, diarrhea , chest pain. He does endorse dyspnea and is taking his mask off for short periods of time when eating. Review of Systems Review of Systems: All systems reviewed & are unremarkable except as noted in HPI and below Exam Narrative: Exam Narrative: - GENERAL: pleasant male breathing comfortably despite being on 10 L oxygen high-flow and 15 L non-rebreather - EYES: EOMI. Anicteric. - HENT: Moist mucous membranes. No scleral icterus. - LUNGS: Difficult to auscultate, diminished otherwise clear to auscultation, no wheezing - CARDIOVASCULAR: Regular rate and rhythm. No murmur. No JVD. - ABDOMEN: Soft, non-tender and non-distended. No palpable masses. - EXTREMITIES: No edema. Peripheral pulses 2+. Non-tender. - NEUROLOGIC: No focal neurological deficits. CN II-XII grossly intact. - PSYCHIATRIC: Awake, Alert and oriented x 3. Appropriate mood and affect. - SKIN: No rashes or lesions. Warm. - LYMPH: No cervical lymphadenopathy. Objective Data Vital Signs Vital Signs: Vital Signs - 24 hr 06/30/20 16:00 06/30/20 20:00 06/30/20 20:35 Temperature 36.6 C 36.8 C Pulse Rate 67 58 L Respiratory Rate 18 20 Blood Pressure 111/59 L 113/67 Pulse Oximetry 91 95 90 06/30/20 22:44 07/01/20 00:00 07/01/20 04:00 Temperature 36.8 C 36.7 C Pulse Rate 59 L 52 L 56 L Respiratory Rate 20 20 20 Blood Pressure 111/61 107/60 Pulse Oximetry 90 95 95 07/01/20 08:00 07/01/20 08:53 07/01/20 08:55 Temperature 36.6 C Pulse Rate 55 L Respiratory Rate 16 Blood Pressure 125/71 Pulse Oximetry 92 95 91 07/01/20 08:56 07/01/20 09:53 07/01/20 12:00 Temperature 36.9 C Pulse Rate 67 Respiratory Rate 16 Blood Pressure 118/66 Pulse Oximetry 91 93 91 Intake/Output Intake/Output: Intake & Output 06/28/20 06/29/20 06/30/20 07/01/20 23:59 23:59 23:59 23:59 Intake Total 2140 1385 1940 890 Output Total 950 1400 500 600 Balance 1190 -15 1440 290 Meds/Results Medications: Active Medications Generic Name Dose Route Start Last Admin Trade Name Freq
[2020-07-01] MEDS: ALBUTEROL SULFATE NEB 2.5 MG/0.5 ML INH 5 MG INHALATION (20:09)
[2020-07-02] VITALS (13 sets, daily range): BP systolic 107–115; BP diastolic 59–68; PULSE 54–68; RESP 18–24; TEMP 36.4–37.3; O2SAT 88–95
[2020-07-02] MEDS: REMDESIVIR 100 MG/NS 250 ML 100 MG/250 ML BAG 250 MG IVPB (05:24)
[2020-07-02 06:33] LABS: Alanine Aminotransferase 70 U/L (4-50); Albumin Level 3.2 g/dL (3.5-5.1); Alkaline Phosphatase 82 U/L (38-126); Anion Gap 5 mmol/L (8-16); Aspartate Amino Transferase 46 U/L (17-59); Bilirubin,Total 0.8 mg/dL (0.2-1.3); Blood Urea Nitrogen 27 mg/dL (9-20); Carbon Dioxide 32 mmol/L (22-30); Chloride 102 mmol/L (98-107); Estimated CRCL calculation 118 ml/min; Estimated Glomerular Filt Rate > 60; Glucose 101 mg/dL (75-110); Potassium 4.2 mmol/L (3.4-5.0); Sodium 139 mmol/L (137-145)
--- NOTE | 2020-07-02 07:57 | PM.IMPN ---
Progress Note: A&P Assessment and Plan (1) Pneumonia due to 2019 novel coronavirus: Code(s): U07.1 - COVID-19; J12.89 - Other viral pneumonia Status: Acute Assessment and Plan: Still requiring 15 L high flow but was able to go down to 10 L however when sleeping he desaturates according to patient snores in his sleep. Continue efforts to wean off of oxygen Continue 15 L high flow when sleeping. Lasix 40 mg x once positive fluid balance. Chest xr repeat Supportive care. Gave update to over the phone. (2) Acute respiratory failure with hypoxia: Code(s): J96.01 - Acute respiratory failure with hypoxia Status: Acute Assessment and Plan: Secondary to Covid 19 novel virus infection. Continue Remdesivir. Continue Dexamethasone. Supportive care. Subjective Date/time seen: 07/02/20 07:57 I'm feeling good. Review of Systems Review of Systems: Narrative: Patient had desaturation episode when was taking a nap, tolerated 10 L of high flow well down from 15. Constitutional: Comments: no fevers, no chills, no rigors. Eyes: Comments: no vision changes. ENT: Comments: no ear ache, no throat pain, no nasal discharge no nasal congestion. Cardiovascular: Comments: no chest pain, no claudication. no leg swelling. Respiratory: Comments: sob, dry cough Gastrointestinal: Comments: no n/v/abdominal pain/diarrhea Musculoskeletal: Comments: no muscle aches or pain. Integumentary/Breasts: Comments: no rashes. Neurologic: Comments: no sensory motor deficit. Hematologic/Lymphatic: Comments: no LAP Exam Narrative: Exam Narrative: Sitting in bed. Const: General: cooperative, comfortable, alert, awake, Physically active and ill appearing Nutritional Appearance: average body habitus Orientation/consciousness: patient oriented x3 Limitations: no limitations HENMT: Head: normal to inspection and normocephalic Ears: hearing grossly normal bilaterally General nose exam: Normal external nose present Face and sinus: normal facial exam Eyes: General: appearance normal, both eyes and all related structures Eyelids: eyelids normal Sclera: sclerae normal Pupils: Equal, round and reactive pupils present EOM: EOMs intact bilaterally Neck: Neck: normal visual inspection, full ROM, no lymphadenopathy, supple and no JVD Resp: Effort & Inspection: normal respiratory effort Auscultation: clear to auscultation bilaterally and diminished lung sounds Cardio: Jugular venous distension: no JVD Rate: regular rate Rhythm: regular rhythm GI: Inspection: normal to inspection GI Palp: Yes Soft to palpation and Yes No hepatosplenomegaly present Auscultation: normal bowel sounds Skin: General skin exam: normal color Lesions: no lesions Rashes: no rashes Neuro: General: patient oriented x3 Cranial nerves: Yes CN's II-XII intact bilaterally and Yes Equal, round and reactive pupils present Cognition (Neuro): normal cognition Speech: normal speech Gait exam (Neuro): Normal gait present Motor exam (neuro): 5/5 motor strength present throughout Sensory Exam: normal sensation Extrem: General: normal to inspection, full ROM and no pedal edema Objective Data Vital Signs Vital Signs: Vital Signs - 24 hr 07/01/20 08:00 07/01/20 08:53 07/01/20 08:55 Temperature 97.8 F Pulse Rate 55 L Respiratory Rate 16 Blood Pressure 125/71 Pulse Oximetry 92 95 91 07/01/20 08:56 07/01/20 09:53 07/01/20 10:40 Temperature Pulse Rate Respiratory Rate Blood Pressure Pulse Oximetry 91 93 91 07/01/20 12:00 07/01/20 16:00 07/01/20 20:00 Temperature 98.5 F 98.6 F 98.3 F Pulse Rate 67 63 65 Respiratory Rate 16 16 20 Blood Pressure 118/66 124/68 122/62 Pulse Oximetry 91 95 95 07/01/20 20:21 07/01/20 20:35 07/02/20 00:00 Temperature 98.1 F Pulse Rate 71 54 L Respiratory Rate 20 20 Blood Pressure 113/66 Pulse Oximetry 93 92 92 07/02/20 04:00 Temperature 97.6 F Pulse Ra
[2020-07-02] MEDS: PANTOPRAZOLE 40 MG TABLET PO (09:14)
[2020-07-02] MEDS: ASCORBIC ACID 500 MG TABLET PO (09:14)
[2020-07-02] MEDS: CHOLECALCIFEROL 1,000 UNITS TABLET 1000 UNITS PO (09:14)
[2020-07-02] MEDS: ZINC SULFATE 220 MG CAPSULE PO (09:14)
[2020-07-02] MEDS: ENOXAPARIN 40 MG/0.4 ML SYRINGE SUB-Q ×2 (09:14→21:50)
[2020-07-02] MEDS: DEXAMETHASONE 2 MG TABLET 6 MG PO (09:14)
[2020-07-02] MEDS: ALBUTEROL SULFATE NEB 2.5 MG/0.5 ML INH 5 MG INHALATION ×2 (10:26→16:10)
[2020-07-02] MEDS: FUROSEMIDE INJ 40 MG/4 ML VIAL IV PUSH (16:44)
[2020-07-02] MEDS: ALBUTEROL SULFATE (*SP) AEROSOL 1 PUFF 2 PUFF INHALATION (21:22)
[2020-07-03] VITALS (14 sets, daily range): BP systolic 102–121; BP diastolic 63–74; PULSE 53–101; RESP 15–24; TEMP 36.4–37.6; O2SAT 88–98
[2020-07-03 05:08] LABS: Fractional Inspired Oxygen 100 %; HCO3 ABG 22.1 mEq/l (22.0-26.0); Oxygen Content ABG 18.9 %vol (16.0-22.0); Oxygen Saturation ABG 93.1 % (95.0-100.0); Oxyhemoglobin 91.4 % THb (90.0-100.0); PCO2 ABG 32.6 mmHg (35.0-45.0); PO2 ABG 62.4 mmHg (80.0-100.0); PO2 FiO2 Ratio Arterial Blood 0.62 %; Total Hemoglobin 14.7 g/dL (12.0-18.0)
[2020-07-03 05:10] LABS: Device HIGH FLOW NASAL CANN; Modified Allen's Test Pass; Site Drawn RIGHT RADIAL
--- NOTE | 2020-07-03 06:08 | PM.EVENT ---
Event Note Event Note Event Note: Engineering Specialist Technician Note Called to assess this 54 year old male who is being treated for COVID pneumonia and who hasn't been able to sleep all nighit with increased work of breathing. The patient complains of shortness of breath. Nursing infoms me that the patient's sats have been in the high 80s and low 90s all night. I obtained an ABG which demonstrated hypoxemia with FiO2 of 100%. At this point we will transfer the patient to IMU and initiate Bipap at 15/7, RR 14, FiO2 100% and wean for increased work of breathing and hypoxemia. Check another ABG in 45 minutes after transfer.
--- NOTE | 2020-07-03 06:30 | PC.NURSE ---
Report given per telephone to SANDRA Campbell RN.
--- NOTE | 2020-07-03 06:40 | PC.NURSE ---
Transferred per hospital bed to room 209 assisted by Rosa, with Respiratory. Belonging sent.
--- NOTE | 2020-07-03 08:35 | PC.NURSE ---
Temi Alfaro, spouse, notified per telephone of change in respiratory status and transfer to IMU room 209.
[2020-07-03 09:20] LABS: Alveolar/Arterial O2 Gradient 608.1 mmHg; Base Excess ABG 0.2 mEq/l (+/-2.0); Device NON-INVASIVE VENT; Fractional Inspired Oxygen 100 %; HCO3 ABG 23.5 mEq/l (22.0-26.0); Modified Allen's Test Pass; Oxyhemoglobin 93.4 % THb (90.0-100.0); PCO2 ABG 34.5 mmHg (35.0-45.0); PO2 ABG 70.4 mmHg (80.0-100.0); Site Drawn RIGHT RADIAL; Total Hemoglobin 14.5 g/dL (12.0-18.0); pH ABG 7.452 (7.350-7.450)
[2020-07-03 09:21] LABS: Non-Invasive Expiratory Pressure 7 CMH2O; Non-Invasive Inspiratory Pressure 15 CMH2O; Non-Invasive Vent Rate 14 /MIN
[2020-07-03] MEDS: ENOXAPARIN 40 MG/0.4 ML SYRINGE SUB-Q ×2 (09:35→21:06)
[2020-07-03] MEDS: DEXAMETHASONE 2 MG TABLET 6 MG PO (09:35)
[2020-07-03] MEDS: CHOLECALCIFEROL 1,000 UNITS TABLET 1000 UNITS PO (09:35)
[2020-07-03] MEDS: ASCORBIC ACID 500 MG TABLET PO (09:35)
[2020-07-03] MEDS: PANTOPRAZOLE 40 MG TABLET PO (09:35)
[2020-07-03] MEDS: ZINC SULFATE 220 MG CAPSULE PO (09:35)
[2020-07-03] MEDS: FUROSEMIDE INJ 40 MG/4 ML VIAL IV PUSH (09:37)
[2020-07-03 11:21] LABS: Basophils Percent Auto 0.1 % (0.2-1.2); Hematocrit 45.1 % (42.0-52.0); Hemoglobin 15.2 g/dL (14.0-18.0); Immature Granulocyte Absolute 0.18 K/mm3 (0.00-0.031); Immature Granulocyte Percent A 1.2 % (0-0.5); Lymphocytes Absolute Auto 0.71 K/mm3 (0.9-3.2); Lymphocytes Percent Auto 4.8 % (18.3-44.2); Mean Corpuscular HGB Conc 33.7 g/dl (32-36); Mean Corpuscular Hemoglobin 32.2 pg (26-34); Mean Corpuscular Volume 95.6 fl (80-100); Mean Platelet Volume 9.5 fl (7.4-10.4); Monocytes Absolute Auto 0.6 K/mm3 (0.1-0.6); Monocytes Percent Auto 4.1 % (2.6-8.5); Neutrophils Absolute Auto 13.4 K/mm3 (1.3-6.7); Neutrophils Percent Auto 89.8 % (45.5-73.1); Platelet Count Result 293 k/mm3 (150-375); Red Blood Count 4.72 M/mm3 (4.6-6.20); Red Cell Distribution Width 12.7 % (11.5-14.5); White Blood Count 14.9 K/mm3 (4.5-10.0)
[2020-07-03 11:29] LABS: Anion Gap 7 mmol/L (8-16); Blood Urea Nitrogen 39 mg/dL (9-20); Calcium 9.6 mg/dL (8.4-10.2); Carbon Dioxide 35 mmol/L (22-30); Chloride 100 mmol/L (98-107); Estimated CRCL calculation 93 ml/min; Estimated Glomerular Filt Rate > 60; Glucose 111 mg/dL (75-110); Potassium 4.5 mmol/L (3.4-5.0); Sodium 142 mmol/L (137-145)
[2020-07-03 11:37] LABS: NT Pro B Type Natriuretic Pept 104 PG/ML (5-100)
--- NOTE | 2020-07-03 11:53 | PM.IMPN ---
Progress Note: A&P Assessment and Plan (1) Pneumonia due to 2019 novel coronavirus: Code(s): U07.1 - COVID-19; J12.89 - Other viral pneumonia Status: Acute Assessment and Plan: Added Cefepime Currently on Remdesivir Supportive care Continue to monitor. (2) Acute respiratory failure with hypoxia: Code(s): J96.01 - Acute respiratory failure with hypoxia Status: Acute Assessment and Plan: Started on BiPAP continuous May try clear liquids (3) Fluid overload, unspecified: Code(s): E87.70 - Fluid overload, unspecified Status: Acute Assessment and Plan: Strict I/O's daily Lasix 40 bid Will re assess in am. Subjective Date/time seen: 07/03/20 11:53 Patient states that he feels fine. Review of Systems Review of Systems: Narrative: Unable to get a thorough review as patient is currently on BiPAP Exam Narrative: Exam Narrative: Patient is lying in bed BiPAP is on. Const: General: cooperative, comfortable, no acute distress, alert, awake and Physically active Nutritional Appearance: average body habitus HENMT: Head: normal to inspection and normocephalic Ears: hearing grossly normal bilaterally General nose exam: Normal external nose present Face and sinus: normal facial exam Eyes: General: appearance normal, both eyes and all related structures Eyelids: eyelids normal Sclera: sclerae normal Pupils: Equal, round and reactive pupils present EOM: EOMs intact bilaterally Neck: Neck: normal visual inspection, full ROM, no lymphadenopathy and no JVD Resp: Effort & Inspection: normal respiratory effort Auscultation: clear to auscultation bilaterally and diminished lung sounds Cardio: Jugular venous distension: no JVD Rate: regular rate Rhythm: regular rhythm GI: Inspection: normal to inspection GI Palp: Yes Soft to palpation and Yes No hepatosplenomegaly present Skin: General skin exam: normal color Lesions: no lesions Rashes: no rashes Trauma: no lacerations or abrasions Wounds: no wounds Neuro: General: patient oriented x3 and CN's II-XI intact bilaterally Cranial nerves: Yes CN's II-XII intact bilaterally and Yes Equal, round and reactive pupils present Cognition (Neuro): normal cognition Speech: normal speech Gait exam (Neuro): Normal gait present Motor exam (neuro): 5/5 motor strength present throughout Extrem: General: normal to inspection, full ROM, no joint enlargement and no pedal edema Objective Data Vital Signs Vital Signs: Vital Signs - 24 hr 07/02/20 12:00 07/02/20 16:00 07/02/20 20:00 Temperature 99.2 F 97.5 F L Pulse Rate 67 68 Respiratory Rate 20 18 24 H Blood Pressure 115/66 107/59 L Pulse Oximetry 90 92 88 L 07/02/20 21:23 07/03/20 00:00 07/03/20 04:00 Temperature 97.6 F 97.5 F L Pulse Rate 62 56 L Respiratory Rate 20 20 Blood Pressure 113/69 110/72 Pulse Oximetry 90 91 93 07/03/20 06:07 07/03/20 08:00 Temperature 98 F Pulse Rate 56 L 65 Respiratory Rate 24 H 15 Blood Pressure 121/74 Pulse Oximetry 94 95 Intake/Output Intake/Output: Intake & Output 06/30/20 07/01/20 07/02/20 07/03/20 23:59 23:59 23:59 23:59 Intake Total 1940 2330 1780 300 Output Total 500 1400 1100 750 Balance 1440 930 680 -450 Meds/Results Medications: Active Medications Generic Name Dose Route Start Last Admin Trade Name Freq PRN Reason Stop Dose Admin Acetaminophen 650 mg 06/27/20 23:51 06/29/20 08:41 Acetaminophen 325 Mg Tablet PO 650 mg Q4H PRN Administration Mild Pain (1-3) or Fever Hydrocodone Bitart/Acetaminophen 1 tab 06/27/20 23:38 Hydrocodone/Acetaminophen (*Crx) 5-325 Mg Tablet PO Q4H PRN Pain Rated 4-6 Al Hydrox/Mg Hydrox/Simethicone 30 ml 06/27/20 23:51 Mag Hydrox/Al Hydrox/Simeth 30 Ml Udc PO QID PRN Dyspepsia Albuterol 2 puff 06/29/20 10:15 07/02/20 21:22 Albuterol Sulfate (*Sp) Aerosol 1 Puff INHALATION 2 puff QIDRT PRN Administration
[2020-07-03] MEDS: CALCIUM CARBONATE (TUMS) 500 MG (200 MG ELEMENTAL) PO (13:14)
--- NOTE | 2020-07-03 14:23 | PC.NURSE ---
This patient, Danny Alfaro, was received from medical floor on 07/03/20 at 0710. [facility]. Patient on continuous BiPAP and accompanied by RN and RT. Patient/family oriented to unit policies and routines
--- NOTE | 2020-07-03 19:27 | PM.CNPUL ---
Assessment and Plan Assessment and plan (1) Pneumonia due to 2019 novel coronavirus: Onset Date: ~06/2020 Code(s): U07.1 - COVID-19; J12.89 - Other viral pneumonia Status: Acute Assessment and Plan: This patient has been in the hospital 7 days, has had remdesivir and dexamethasone with worsening oxygenation today. He was transferred to IMU, responded to BiPAP for several hours, now is on Air-vo and nonrebreather mask able to maintain his saturation 90% while awake. He is asking about getting convalescent plasma, which is restricted for use in clinical trials and is best early in the course of disease when the virus is replicating. He is not in the window to use convalescent plasma. He is 7 days into the hospitalization, and 13 days into his illness, so he is around the 10 day peak when inflammation can peak. Will repeat LDH and CRP and check lactic acid. He is not able to rest supine due to back pain. He may desaturate with sleep, may need PAP while sleeping. His pCO2 is low, so CPAP may be better tolerated. Some of his desaturation wiht sleep may be untreated LEXA, and we will follow him after discharge for his sleep issues. (2) Acute respiratory failure with hypoxia: Code(s): J96.01 - Acute respiratory failure with hypoxia Status: Acute Assessment and Plan: O2 requirement is higher, and he is responding to current changes in treatment. He may be at the peak of his COVID badness. His BNP is normal, does not have swelling, has not had an echo. I plan to order a limited echo to see if his EF is ok. He does not have hypertension. This many days of hypoxemia and no sleep can stress the cardiovascular system. He might benefot from a little Lasix, although his BUN is gradually increasing. History of Present Illness History of Present Illness Consult date: 07/03/20 Requesting physician: Lynnette Blanco MD Reason for consult: hypoxemia Chief complaint: COVID, Hypoxia Narrative: reason for consult: hypoxic respiratory failure with COVID pneumonia Danny Alfaro is a 54 yo man with good health who around Jun 22 developed nasal congestion that he attributed to allergies, then a fever of 99.8, which increased to 104 later that day, shortness of breath and a dry cough. He thought it was allergies with the changes in the weather. He had an oximeter at home showing saturation down to 86% although he was only short of breath while walking up stairs. He did not have symptoms other than those listed. He had no loss of taste or smell, no myalgias, no GI symptoms, no headache; he had progression of symptoms. He came to the hospital where is saturation was 76%. He required supplemental O2, and was treated with remdesivir, decadron and azithromycin. Last night Jul 02 he worsened, and was not able to fall asleep without his saturation decreasing, causing alarms to sound. He has not had decent sleep since arrival, as he can only oxygenate normally sitting up over a bedside table leaning on a pillow. He was transferred from [address] [place] [address] to IMU overnight and started on BiPAP with improvement in oxygenation. He was able to take the bipap off at 1 pm today, and since then has been on Airvo and 10 L/min with saturation 90% or better. This evening, Jul 03, he is apparently turning the corner for the better. He is feeling better than he has since arrival, although he is on 100% nonrebreather and high flow nasal cannula. He has had elevated LDH on Jun 30 @ 1091, and high ferritin 398. CRP was 4.4, elevated. Will recheck as well as lactic acid. BNP was 104 today. WBC today 14K, resp rate 24. BUN is increasing now 39, started at 25, may be higher due to steroids. CXR yesterday was slightly worse with increased bilateral markings suggestive of progressive pneumonia or pulmonary edema. 1st ABG today: 7.45 / 32.6 / 62.4 / 93.1
[2020-07-03] MEDS: ALBUTEROL SULFATE (*SP) AEROSOL 1 PUFF 2 PUFF INHALATION (20:27)
[2020-07-04] VITALS (20 sets, daily range): BP systolic 102–115; BP diastolic 58–74; PULSE 56–79; RESP 18–30; TEMP 36–37.1; O2SAT 87–92
[2020-07-04 06:57] LABS: Basophils Percent Auto 0.1 % (0.2-1.2); Eosinophils Percent Auto 0.1 % (0-4.4); Hemoglobin 14.3 g/dL (14.0-18.0); Immature Granulocyte Absolute 0.15 K/mm3 (0.00-0.031); Lymphocytes Absolute Auto 0.47 K/mm3 (0.9-3.2); Lymphocytes Percent Auto 3.2 % (18.3-44.2); Mean Corpuscular Hemoglobin 31.8 pg (26-34); Mean Corpuscular Volume 93.3 fl (80-100); Mean Platelet Volume 9.4 fl (7.4-10.4); Monocytes Absolute Auto 0.6 K/mm3 (0.1-0.6); Monocytes Percent Auto 4.3 % (2.6-8.5); Neutrophils Absolute Auto 13.2 K/mm3 (1.3-6.7); Neutrophils Percent Auto 91.3 % (45.5-73.1); Platelet Count Result 275 k/mm3 (150-375); Red Cell Distribution Width 12.5 % (11.5-14.5); White Blood Count 14.5 K/mm3 (4.5-10.0)
[2020-07-04 07:14] LABS: Lactic Acid Reflex 1.6 mmol/L (0.7-2.1)
--- NOTE | 2020-07-04 08:00 | ECHO_ITS ---
Patient Info Name: Danny Alfaro Age: 54 years : 1965 Gender: Male Ht: 70 in Wt: 210 lbs BSA: 2.19 m2 HR: 73 bpm BP: 109 / 58 mmHg Heart Rhythm: Sinus Rhythm Technical Quality: Good Exam Date: 07/04/2020 11:28 AM Exam Location: [facility] Pulmonary Patient Status: Inpatient Admit Date: 06/27/2020 Staff Ordering Physician: Bhakti Macias MD Order Entry Technician: Mateo Leyva, POOJA, RT Attending Provider: Lynnette Blanco MD Referring Physician: Colleen VAUGHN; Exam Type: CA echo doppler color flow Study Info Indications J96.90 - Respiratory failure, unspecified, unspecified whether with hypoxia or hypercapnia Complete two-dimensional, color flow and Doppler transthoracic echocardiogram is performed. Summary 1. Complete two-dimensional, color flow and Doppler transthoracic echocardiogram is performed. 2. Left ventricular chamber dimension is normal. 3. Left ventricular systolic function is normal, estimated at 60-65%. 4. Right ventricular chamber dimension is normal. 5. Intact interatrial septum visualized by agitated saline imaging. 6. No shunting seen on agitated saline contrast injection. Left Ventricle Left ventricular chamber dimension is normal. Left ventricular systolic function is normal, estimated at 60-65%. The left ventricular diastolic function is normal. Right Ventricle Right ventricular chamber dimension is normal. Left Atria Left atrial chamber dimension is normal. Right Atria Right atrial chamber dimension is normal. Atrial Septum Intact interatrial septum visualized by agitated saline imaging. No shunting seen on agitated saline contrast injection. Aortic Valve The aortic valve is normal. Pulmonic Valve The pulmonic valve is normal. Mitral Valve The mitral valve has normal leaflets. Tricuspid Valve The tricuspid valve leaflets are normal. Pericardium/Pleural The pericardium appears normal. Aorta The aortic root size at the sinus of Valsalva is normal. Left Ventricular Outflow Tract Name Value Normal LVOT 2D LVOT Diameter 2.0 cm LVOT Doppler LVOT Peak Velocity 74 cm/s LVOT Peak Gradient 2 mmHg LVOT Mean Gradient 1 mmHg LVOT VTI 13 cm LVOT VTI/AV VTI Ratio 0.6 LVOT Stroke Volume 40 ml LVOT CO 2.9 l/min LVOT CI 1.3 l/min/m2 Mitral Valve Name Value Normal MV Doppler MV Decel [place] 147 cm/s2 MV PHT 120 ms MV Area (PHT) 1.8 cm2 4.0-5.0 MV Diastolic Function MV E Peak Velocity
[2020-07-04] MEDS: ASCORBIC ACID 500 MG TABLET PO (08:11)
[2020-07-04] MEDS: CHOLECALCIFEROL 1,000 UNITS TABLET 1000 UNITS PO (08:11)
[2020-07-04] MEDS: ENOXAPARIN 40 MG/0.4 ML SYRINGE SUB-Q ×2 (08:11→21:43)
[2020-07-04] MEDS: ZINC SULFATE 220 MG CAPSULE PO (08:11)
[2020-07-04] MEDS: DEXAMETHASONE 2 MG TABLET 6 MG PO (08:11)
[2020-07-04] MEDS: PANTOPRAZOLE 40 MG TABLET PO (08:11)
[2020-07-04 10:59] LABS: Lactate Dehydrogenase 917 U/L (313-618)
--- NOTE | 2020-07-04 12:05 | PM.IMPN ---
Progress Note: A&P Assessment and Plan (1) Fluid overload, unspecified: Code(s): E87.70 - Fluid overload, unspecified Status: Acute Assessment and Plan: Will try Lasix x 1 day will re assess in am Strict I/O's daily Daily labs (2) Pneumonia due to 2019 novel coronavirus: Onset Date: ~06/2020 Code(s): U07.1 - COVID-19; J12.89 - Other viral pneumonia Status: Acute Assessment and Plan: Completed course of Remdesivir Added Cefepime for potential superimposed bacterial/nosocomial infection Still on Dexamethasone. (3) Acute respiratory failure with hypoxia: Code(s): J96.01 - Acute respiratory failure with hypoxia Status: Acute Assessment and Plan: Likely secondary to Covid pneumonia Extensive infiltartes on chest xr Possible LEXA non treated Continue BiPAP continuous at night time. High flow oxygen during the day Appreciate Pulmonology note. Will follow recs. Subjective Date/time seen: 07/04/20 12:05 Feeling better. Review of Systems Review of Systems: Narrative: Unable to obtain a thorough review of systems as patient is on high flow oxygen at 15 L Exam Narrative: Exam Narrative: Patient is sitting on the chair he on high flow oxygen at 15 L. Const: General: cooperative, well developed, alert, awake, Physically active and well groomed Nutritional Appearance: average body habitus Orientation/consciousness: patient oriented x3 HENMT: Head: normal to inspection and normocephalic Ears: hearing grossly normal bilaterally General nose exam: Normal external nose present Eyes: General: appearance normal, both eyes and all related structures Periorbital: periorbital findings normal Sclera: sclerae normal Pupils: Equal, round and reactive pupils present EOM: EOMs intact bilaterally Neck: Neck: full ROM, no lymphadenopathy, supple and no JVD Resp: Effort & Inspection: other (On high flow oxygen.) Auscultation: diminished lung sounds Cardio: Jugular venous distension: no JVD Rate: regular rate Rhythm: regular rhythm GI: Inspection: normal to inspection GI Palp: Yes Soft to palpation and Yes No hepatosplenomegaly present Skin: General skin exam: normal color Lesions: no lesions Rashes: no rashes Trauma: no lacerations or abrasions Wounds: no wounds Neuro: General: patient oriented x3 and CN's II-XI intact bilaterally Cranial nerves: Yes CN's II-XII intact bilaterally and Yes Equal, round and reactive pupils present Cognition (Neuro): normal cognition Speech: normal speech Gait exam (Neuro): Normal gait present Motor exam (neuro): 5/5 motor strength present throughout Extrem: General: no pedal edema Objective Data Vital Signs Vital Signs: Vital Signs - 24 hr 07/03/20 14:00 07/03/20 16:00 07/03/20 17:30 Temperature 98.3 F Pulse Rate 55 L 59 L 58 L Respiratory Rate 20 23 H Blood Pressure 107/69 Pulse Oximetry 88 L 90 07/03/20 18:00 07/03/20 20:00 07/03/20 20:35 Temperature Pulse Rate 56 L 70 61 Respiratory Rate 22 H 24 H Blood Pressure Pulse Oximetry 94 91 07/03/20 22:00 07/03/20 23:48 07/04/20 00:00 Temperature 99.6 F Pulse Rate 101 H 101 H 70 Respiratory Rate 22 H Blood Pressure 108/73 Pulse Oximetry 94 90 07/04/20 02:00 07/04/20 03:56 07/04/20 04:00 Temperature 97.7 F Pulse Rate 74 61 59 L Respiratory Rate 22 H Blood Pressure 109/58 L Pulse Oximetry 90 89 L 07/04/20 06:00 07/04/20 08:00 07/04/20 09:00 Temperature 96.8 F L Pulse Rate 73 73 66 Respiratory Rate 18 20 Blood Pressure 102/65 Pulse Oximetry 90 90 07/04/20 10:00 07/04/20 11:38 Temperature 97.1 F L Pulse Rate 79 74 Respiratory Rate 22 H Blood Pressure 115/74 Pulse Oximetry 87 L Intake/Output Intake/Output: Intake & Output 07/01/20 07/02/20 07/03/20 07/04/20 23:59 23:59 23:59 23:59 Intake Total 2330 1780 400 300 Output Total 1400 1100 2050 1075 Balance 932 660 -[phone] -838 Meds/Results Medi
[2020-07-05] VITALS (19 sets, daily range): BP systolic 98–113; BP diastolic 55–71; PULSE 57–75; RESP 18–30; TEMP 36–37.8; O2SAT 88–98
[2020-07-05 06:24] LABS: Basophils Percent Auto 0.1 % (0.2-1.2); Eosinophils Percent Auto 0.1 % (0-4.4); Hematocrit 39.7 % (42.0-52.0); Hemoglobin 13.4 g/dL (14.0-18.0); Immature Granulocyte Absolute 0.13 K/mm3 (0.00-0.031); Immature Granulocyte Percent A 0.9 % (0-0.5); Lymphocytes Absolute Auto 0.46 K/mm3 (0.9-3.2); Mean Corpuscular HGB Conc 33.8 g/dl (32-36); Mean Corpuscular Hemoglobin 31.7 pg (26-34); Mean Corpuscular Volume 93.9 fl (80-100); Mean Platelet Volume 9.8 fl (7.4-10.4); Monocytes Absolute Auto 0.7 K/mm3 (0.1-0.6); Monocytes Percent Auto 4.9 % (2.6-8.5); Neutrophils Absolute Auto 13.8 K/mm3 (1.3-6.7); Platelet Count Result 265 k/mm3 (150-375); Red Blood Count 4.23 M/mm3 (4.6-6.20); Red Cell Distribution Width 12.6 % (11.5-14.5); White Blood Count 15.2 K/mm3 (4.5-10.0)
[2020-07-05 06:41] LABS: Anion Gap 6 mmol/L (8-16); Blood Urea Nitrogen 35 mg/dL (9-20); Calcium 8.9 mg/dL (8.4-10.2); Carbon Dioxide 26 mmol/L (22-30); Chloride 105 mmol/L (98-107); Estimated CRCL calculation 105 ml/min; Estimated Glomerular Filt Rate > 60; Glucose 103 mg/dL (75-110); Potassium 4.5 mmol/L (3.4-5.0); Sodium 137 mmol/L (137-145)
[2020-07-05 10:14] LABS: Alveolar/Arterial O2 Gradient 626.4 mmHg; Base Excess ABG -1.5 mEq/l (+/-2.0); Fractional Inspired Oxygen 100 %; HCO3 ABG 21.2 mEq/l (22.0-26.0); Oxygen Content ABG 18.7 %vol (16.0-22.0); Oxygen Saturation ABG 91.1 % (95.0-100.0); Oxyhemoglobin 89.4 % THb (90.0-100.0); PCO2 ABG 30.6 mmHg (35.0-45.0); PO2 FiO2 Ratio Arterial Blood 0.56 %; Total Hemoglobin 14.9 g/dL (12.0-18.0); pH ABG 7.459 (7.350-7.450)
[2020-07-05 10:15] LABS: Device HIGH FLOW THERAPY; Modified Allen's Test Pass; Site Drawn RIGHT RADIAL
[2020-07-05] MEDS: ENOXAPARIN 40 MG/0.4 ML SYRINGE SUB-Q ×2 (10:15→22:02)
[2020-07-05] MEDS: PANTOPRAZOLE 40 MG TABLET PO (10:16)
[2020-07-05] MEDS: DEXAMETHASONE 2 MG TABLET 6 MG PO (10:16)
[2020-07-05] MEDS: ASCORBIC ACID 500 MG TABLET PO (10:16)
[2020-07-05] MEDS: ZINC SULFATE 220 MG CAPSULE PO (10:16)
[2020-07-05] MEDS: CHOLECALCIFEROL 1,000 UNITS TABLET 1000 UNITS PO (10:16)
--- NOTE | 2020-07-05 12:09 | PCNWS ---
Weekly nutritional screen. Spoke with patient over the phone today due to COVID precautions. Patient is tolerating Regular diet with adequate intake. Diet supplements will continue of Ensure Compact BID providing an additional 220 kcals and 8 gms protein. No further nutritional needs at this time.
[2020-07-05] MEDS: CALCIUM CARBONATE (TUMS) 500 MG (200 MG ELEMENTAL) PO (12:43)
[2020-07-05] MEDS: ACETAMINOPHEN 325 MG TABLET 650 MG PO (12:43)
--- NOTE | 2020-07-05 12:56 | PM.IMPN ---
Progress Note: A&P Assessment and Plan (1) Fluid overload, unspecified: Code(s): E87.70 - Fluid overload, unspecified Status: Acute Assessment and Plan: Now with negative balance. Discontinue scheduled Lasix to as needed Daily I/O's (2) Pneumonia due to 2019 novel coronavirus: Onset Date: ~06/2020 Code(s): U07.1 - COVID-19; J12.89 - Other viral pneumonia Status: Acute Assessment and Plan: Completed Remdesivir Added Cefepime Continue to monitor Will not give convalescent plasma as out of therapeutic window discussed with patient and agreable. (3) Acute respiratory failure with hypoxia: Code(s): J96.01 - Acute respiratory failure with hypoxia Status: Acute Assessment and Plan: Currently on high flow BiPAP continuous at night time Appreciate Pulmonology note. Subjective Date/time seen: 07/05/20 12:56 I feel fine. Review of Systems Review of Systems: Narrative: Unable to obtain a thorough review of systems as patient is on high flow oxygen. Exam Narrative: Exam Narrative: Patient is sitting by the edge of the bed, high flow oxygen on. Able to speak in full sentences. Const: General: cooperative, comfortable, alert, awake, Physically active and well groomed Nutritional Appearance: average body habitus Orientation/consciousness: patient oriented x3 HENMT: Head: normal to inspection and normocephalic Ears: hearing grossly normal bilaterally General nose exam: Normal external nose present Eyes: General: appearance normal, both eyes and all related structures Pupils: Equal, round and reactive pupils present EOM: EOMs intact bilaterally Neck: Neck: full ROM, no lymphadenopathy and no JVD Resp: Auscultation: clear to auscultation bilaterally Cardio: Jugular venous distension: no JVD Heart sounds: S1 normal heart sound present and S2 normal heart sound present GI: Inspection: normal to inspection GI Palp: Yes Soft to palpation and Yes No hepatosplenomegaly present Skin: General skin exam: normal color Rashes: no rashes Wounds: no wounds Neuro: Cranial nerves: Yes CN's II-XII intact bilaterally and Yes Equal, round and reactive pupils present Cognition (Neuro): normal cognition Speech: normal speech Gait exam (Neuro): Normal gait present Motor exam (neuro): 5/5 motor strength present throughout Sensory Exam: normal sensation Extrem: General: normal to inspection, full ROM and no pedal edema Objective Data Vital Signs Vital Signs: Vital Signs - 24 hr 07/04/20 14:00 07/04/20 15:33 07/04/20 16:00 Temperature 97.8 F Pulse Rate 56 L 64 70 Respiratory Rate 24 H 30 H Blood Pressure 115/61 Pulse Oximetry 92 90 07/04/20 18:00 07/04/20 20:00 07/04/20 20:51 Temperature Pulse Rate 78 64 Respiratory Rate 24 H Blood Pressure Pulse Oximetry 89 L 89 L 07/04/20 21:15 07/04/20 22:00 07/04/20 22:10 Temperature 98.7 F Pulse Rate 64 62 Respiratory Rate 24 H 25 H Blood Pressure 113/73 Pulse Oximetry 89 L 92 07/05/20 00:00 07/05/20 02:00 07/05/20 04:00 Temperature 96.9 F L 96.8 F L Pulse Rate 57 L 58 L 62 Respiratory Rate 22 H 30 H Blood Pressure 113/71 106/66 Pulse Oximetry 92 98 07/05/20 05:30 07/05/20 05:49 07/05/20 05:50 Temperature Pulse Rate 63 61 67 Respiratory Rate 30 H 25 H Blood Pressure Pulse Oximetry 88 L 90 07/05/20 07:45 07/05/20 08:00 07/05/20 10:00 Temperature 99.1 F Pulse Rate 67 74 Respiratory Rate 26 H Blood Pressure 98/64 L Pulse Oximetry 91 89 L 07/05/20 12:43 Temperature 100.1 F H Pulse Rate Respiratory Rate Blood Pressure Pulse Oximetry Intake/Output Intake/Output: Intake & Output 07/02/20 07/03/20 07/04/20 07/05/20 23:59 23:59 23:59 23:59 Intake Total 1780 400 850 590 Output Total 1100 2050 1075 400 Balance [phone] -[phone] -565 077 Meds/Results Medications: Active Medications Generic Name Dose Route Start Last Admin Trade Name
[2020-07-05 21:15] LABS: Alveolar/Arterial O2 Gradient 622.4 mmHg; Base Excess ABG 1.2 mEq/l (+/-2.0); Fractional Inspired Oxygen 100 %; HCO3 ABG 24.5 mEq/l (22.0-26.0); Methemoglobin ABG 0.1 %THb (0-1.5); Oxygen Content ABG 18.7 %vol (16.0-22.0); Oxygen Saturation ABG 90.9 % (95.0-100.0); Oxyhemoglobin 89.4 % THb (90.0-100.0); PCO2 ABG 34.8 mmHg (35.0-45.0); PO2 ABG 55.8 mmHg (80.0-100.0); PO2 FiO2 Ratio Arterial Blood 0.56 %; Reduced Hemoglobin 10.5 %THb (0-5.0); Total Hemoglobin 14.9 g/dL (12.0-18.0); pH ABG 7.465 (7.350-7.450)
[2020-07-05 21:16] LABS: Device NON-INVASIVE VENT; Modified Allen's Test Pass; Site Drawn RIGHT RADIAL
[2020-07-05 21:17] LABS: Non-Invasive Expiratory Pressure 10 CMH2O; Non-Invasive Inspiratory Pressure 20 CMH2O; Non-Invasive Vent Rate 14 /MIN
--- NOTE | 2020-07-05 22:16 | PC.NURSE ---
07/05/202207- This RN spoke with Pt regarding his ABG results after BIPAP changes. Per MD's request, I spoke with the Pt regarding the need for possible intubation given his ABG results/low PO2. Pt very adamant at this time, that he does not wish to be put on a ventilator and understands the risks/benefits of delaying intubation. Pt is requesting to speak with the MD. Dr Naylor notified and will come speak to the patient shortly.
--- NOTE | 2020-07-05 22:37 | PC.NURSE ---
07/05/202219- Dr. Naylor at bedside speaking to the Pt. Dr. Naylor spoke with the Pt in length about the risks/benefits of intubation. The Pt is continuing to not want to be intubated at this time. Pt is agreeable to have another ABG drawn at 2330 and move forward with intubation if his ABG numbers do not improve. rn hematology updated. Will continue to monitor patient closely.
--- NOTE | 2020-07-05 23:29 | PC.NURSE ---
07/05/202319- Spoke with Pt's , Temi and updated her on Pt's condition and the possibility for the need to intubate if the Pt's ABGs do not improve. All questions answered and Pt's will be called and updated with ABG results.
[2020-07-05 23:41] LABS: Alveolar/Arterial O2 Gradient 620.7 mmHg; Base Excess ABG 1.2 mEq/l (+/-2.0); Carboxyhemoglobin 0.3 % THb (0-2.0); Fractional Inspired Oxygen 100 %; HCO3 ABG 24.4 mEq/l (22.0-26.0); Methemoglobin ABG 0.2 %THb (0-1.5); Oxygen Content ABG 18.5 %vol (16.0-22.0); Oxygen Saturation ABG 91.6 % (95.0-100.0); Oxyhemoglobin 89.7 % THb (90.0-100.0); PCO2 ABG 34.8 mmHg (35.0-45.0); PO2 ABG 57.5 mmHg (80.0-100.0); PO2 FiO2 Ratio Arterial Blood 0.57 %; Reduced Hemoglobin 9.8 %THb (0-5.0); Total Hemoglobin 14.7 g/dL (12.0-18.0); pH ABG 7.464 (7.350-7.450)
[2020-07-05 23:42] LABS: Device NON-INVASIVE VENT; Modified Allen's Test Pass; Site Drawn LEFT RADIAL
[2020-07-05 23:43] LABS: Non-Invasive Expiratory Pressure 10 CMH2O; Non-Invasive Inspiratory Pressure 20 CMH2O; Non-Invasive Vent Rate 14 /MIN
[2020-07-06] VITALS (21 sets, daily range): BP systolic 93–116; BP diastolic 54–86; PULSE 55–83; RESP 17–32; TEMP 36–37.7; O2SAT 89–95
--- NOTE | 2020-07-06 00:26 | PC.NURSE ---
07/06/20 0001- Pt informed of his latest ABG results and Dr. Naylor's recommendations to stay the course for the time being with a repeat ABG in the AM. Pt is agreeable with this careplan. Pt instructed to inform staff immediately if he should feel any worsening increased work of breathing. 0010-Pt's called and updated with Pt's condition, ABG results and careplan. All questions answered. Will continue to monitor patient closely.
--- NOTE | 2020-07-06 03:42 | PM.EVENT ---
Event Note Event Note Event Note: I was called to see this 54-year-old who is being treated for acute respiratory failure and COVID pneumonia who is on BiPAP. Nursing staff was concerned as his sats would be anywhere from mid 80s to 90%. After max Ng out the BiPAP at 20/10 patient's repeat ABGs were not much different from this morning with a low PO2 of 55.8. I have talked with the patient and discussed endotracheal intubation and mechanical ventilation with him at length. the patient has verbalized to me at this time that he would like to avoid endotracheal intubation and mechanical ventilation if possible. I have discussed with him the idea of rechecking another blood gas in an hour as he believes that his blood gas was abnormal because the mask was not on his face correctly. I have verbalized to the patient that if his blood gases do not show some improvement he would be much better off being placed on mechanical ventilation before he tires out. We will continue to monitor closely. All questions were answered to his satisfaction.
[2020-07-06 05:05] LABS: Alveolar/Arterial O2 Gradient 621.9 mmHg; Base Excess ABG -0.8 mEq/l (+/-2.0); Carboxyhemoglobin 0.3 % THb (0-2.0); Fractional Inspired Oxygen 100 %; HCO3 ABG 22.2 mEq/l (22.0-26.0); Methemoglobin ABG 0.2 %THb (0-1.5); Oxygen Content ABG 18.5 %vol (16.0-22.0); Oxygen Saturation ABG 92.1 % (95.0-100.0); Oxyhemoglobin 89.4 % THb (90.0-100.0); PCO2 ABG 32.2 mmHg (35.0-45.0); PO2 ABG 58.9 mmHg (80.0-100.0); PO2 FiO2 Ratio Arterial Blood 0.59 %; Reduced Hemoglobin 10.1 %THb (0-5.0); Site Drawn RIGHT RADIAL; Total Hemoglobin 14.7 g/dL (12.0-18.0); pH ABG 7.456 (7.350-7.450)
[2020-07-06 05:06] LABS: Device NON-INVASIVE VENT; Modified Allen's Test Pass; Non-Invasive Expiratory Pressure 10 CMH2O; Non-Invasive Inspiratory Pressure 20 CMH2O; Non-Invasive Vent Rate 14 /MIN
[2020-07-06] MEDS: PANTOPRAZOLE 40 MG TABLET PO (09:19)
[2020-07-06] MEDS: ASCORBIC ACID 500 MG TABLET PO (09:19)
[2020-07-06] MEDS: ZINC SULFATE 220 MG CAPSULE PO (09:19)
[2020-07-06] MEDS: CHOLECALCIFEROL 1,000 UNITS TABLET 1000 UNITS PO (09:19)
[2020-07-06] MEDS: DEXAMETHASONE 2 MG TABLET 6 MG PO (09:20)
[2020-07-06] MEDS: ENOXAPARIN 40 MG/0.4 ML SYRINGE SUB-Q ×2 (09:20→19:53)
[2020-07-06] MEDS: CALCIUM CARBONATE (TUMS) 500 MG (200 MG ELEMENTAL) PO (11:14)
--- NOTE | 2020-07-06 12:28 | WPDCNINT ---
Assessment and Plan Assessment and plan (1) Acute respiratory failure with hypoxia: Code(s): J96.01 - Acute respiratory failure with hypoxia Status: Acute Assessment and Plan: Hypoxic respiratory failure secondary to COVID-19 pneumonia -currently on BiPAP 20/10, 100% FiO2. - ABGs and chest x-rays reviewed -changed BiPAP settings to 16/10, 100% FiO2 -patient's respiratory status is acceptable at this time, he slightly tachypneic respiratory rates between 23-27 breaths per minute. States he has not in any distress at this time -I did discuss with him that if his oxygen worsens or he becomes tachypneic, tachycardic or if he has respiratory fatigue he will be intubated and placed on mechanical ventilation to which she is agreeable (2) Pneumonia due to COVID-19 virus: Code(s): U07.1 - COVID-19; J12.89 - Other viral pneumonia Status: Acute Assessment and Plan: SARS-CoV-2 PCR positive -patient has completed a course of dexamethasone and Remdesivir -zinc, vitamin-D, vitamin-C (3) Gastroesophageal reflux: Code(s): K21.9 - Gastro-esophageal reflux disease without esophagitis Status: Acute Assessment and Plan: Continue Protonix IV (4) DVT prophylaxis: Code(s): Z29.9 - Encounter for prophylactic measures, unspecified Status: Acute Assessment and Plan: Lovenox 40 mg SQ q.12 hours Additional Plan Discussed with patient and updated with his condition and plan of care. He is aware and comprehend that if his respiratory status declines will be intubated and placed on mechanical ventilation to which she agrees. Code status: Full code Critical care time spent: 44 minutes Due to a high probability of clinically significant, life threatening deterioration, the patient required my highest level of preparedness to intervene emergently and I personally spent this critical care time directly and personally managing the patient. This critical care time included obtaining a history; examining the patient; pulse oximetry; ordering and review of studies; arranging urgent treatment with development of a management plan; evaluation of patient's response to treatment; frequent reassessment; and discussions with other providers. It was exclusive of separately billable procedures and treating other patients and teaching time. Please see Assessment and Plan section and the rest of the note for further information on patient assessment and treatment [facility] Consult Note Consult date: 07/06/20 Time Seen: 11:20 Reason for consult: Acute hypoxic respiratory failure, COVID-19 pneumonia, fevers HPI: Danny Alfaro is a 54 year old male with past medical history of Marques's esophagus, gastroesophageal reflux disease daily drinker presented to the ED on 06/27/2020 with complains of shortness of breath, productive cough and fevers that began 6 days prior to admission. O2 sat the pulse ox with the 80s came to the ED to be evaluated. He was tested positive for COVID-19, 2 days prior to admission. Patient denied loss of smell or taste, nausea, vomiting, abdominal pain. Patient also had complained of fevers, chills, shortness of breath and decreased appetite. Since admission patient has been on the medical floor requiring 4 L via nasal cannula. Was started on Remdesivir and dexamethasone on 06/28. Patient also was started on supplements with zinc, vitamin-C and vitamin-D. On 07/03 patient had increased work of breathing, O2 sats were in the upper 80s to low 90s. Patient was placed on BiPAP and transferred to the intermediate unit. -on 07/06/2020 I was asked to see the patient as his in requirements on the BiPAP had increased to 100% FiO2, patient on 04/06 a BiPAP. Patient was seen and evaluated today in the IMU. Remains on BiPAP 04/06 with 100% FiO2. Tidal volumes of 6740-4972 mL. Patient is awake, alert, oriented x3. But respiratory rate 24-27 times a minute. Patient looks comfortable and not in any
--- NOTE | 2020-07-06 13:27 | PM.IMPN ---
Progress Note: A&P Assessment and Plan (1) Gastroesophageal reflux: Code(s): K21.9 - Gastro-esophageal reflux disease without esophagitis Status: Acute Assessment and Plan: Stable. Continue home meds (2) Pneumonia due to COVID-19 virus: Code(s): U07.1 - COVID-19; J12.89 - Other viral pneumonia Status: Acute Assessment and Plan: Desamethasone + Rendesivir (3) Pneumonia due to 2019 novel coronavirus: Onset Date: ~06/2020 Code(s): U07.1 - COVID-19; J12.89 - Other viral pneumonia Status: Acute Assessment and Plan: On Desamethasone + Remdesivir (4) Acute respiratory failure with hypoxia: Code(s): J96.01 - Acute respiratory failure with hypoxia Status: Acute Assessment and Plan: On continuous BiPAP Int/CC consulted Appreciate Int/cc note Continue to monitor Patient agreeable to Vent if needed ABG's noted (5) Hypoxia: Code(s): R09.02 - Hypoxemia Status: Acute Assessment and Plan: On 100 % FiO2 Continuous BiPAP Subjective Date/time seen: 07/06/20 13:27 I feel fine. Review of Systems Review of Systems: Narrative: Unable to obtain as patient is on BiPAP. Exam Narrative: Exam Narrative: Sitting upright in bed, BiPAP on. Const: General: cooperative, comfortable, well developed, alert and awake Nutritional Appearance: average body habitus Orientation/consciousness: patient oriented x3 HENMT: Head: normal to inspection and normocephalic Ears: hearing grossly normal bilaterally General nose exam: Normal external nose present Face and sinus: normal facial exam Eyes: General: appearance normal, both eyes and all related structures Pupils: Equal, round and reactive pupils present EOM: EOMs intact bilaterally Neck: Neck: normal visual inspection, full ROM, no lymphadenopathy and supple Resp: Auscultation: clear to auscultation bilaterally and diminished lung sounds Cardio: Jugular venous distension: no JVD Rate: regular rate Rhythm: regular rhythm GI: Inspection: normal to inspection GI Palp: Yes Soft to palpation and Yes No hepatosplenomegaly present Skin: General skin exam: normal color Neuro: General: patient oriented x3 and CN's II-XI intact bilaterally Cranial nerves: Yes CN's II-XII intact bilaterally and Yes Bilaterally intact EOM present Cognition (Neuro): normal cognition Speech: normal speech Motor exam (neuro): 5/5 motor strength present throughout Sensory Exam: normal sensation Extrem: General: normal to inspection and full ROM Objective Data Vital Signs Vital Signs: Vital Signs - 24 hr 07/05/20 13:43 07/05/20 13:54 07/05/20 14:00 Temperature 99.6 F Pulse Rate 65 61 Respiratory Rate 22 H Blood Pressure Pulse Oximetry 89 L 07/05/20 16:00 07/05/20 18:00 07/05/20 20:00 Temperature 98.9 F 96.8 F L Pulse Rate 59 L 61 58 L Respiratory Rate 20 25 H Blood Pressure 112/63 105/70 Pulse Oximetry 90 93 07/05/20 20:11 07/05/20 22:00 07/06/20 00:00 Temperature 97.6 F Pulse Rate 57 L 55 L Respiratory Rate 25 H 19 Blood Pressure 110/70 Pulse Oximetry 93 91 07/06/20 02:00 07/06/20 02:25 07/06/20 04:00 Temperature 96.8 F L Pulse Rate 56 L 61 Respiratory Rate 24 H 17 Blood Pressure 110/67 Pulse Oximetry 90 91 07/06/20 04:55 07/06/20 06:00 07/06/20 08:00 Temperature 99.1 F Pulse Rate 63 61 Respiratory Rate 17 20 Blood Pressure 106/86 Pulse Oximetry 91 89 L 07/06/20 10:00 07/06/20 11:37 Temperature 99.5 F Pulse Rate 67 68 Respiratory Rate 32 H Blood Pressure 112/75 Pulse Oximetry 91 Intake/Output Intake/Output: Intake & Output 07/03/20 07/04/20 07/05/20 07/06/20 23:59 23:59 23:59 23:59 Intake Total 815 783 3850 650 Output Total 4404 2915 2541 [facility] -[phone] 650 Meds/Results Medications: Active Medications Generic Name Dose Route Start Last Admin Trade Name Freq PRN Reason Stop Dose Admin Ac
[2020-07-06] MEDS: MAG HYDROX/AL HYDROX/SIMETH 30 ML UDC PO ×2 (14:18→23:41)
[2020-07-07] VITALS (18 sets, daily range): BP systolic 86–127; BP diastolic 61–95; PULSE 60–88; RESP 16–27; TEMP 36.1–37.9; O2SAT 90–95
[2020-07-07 04:32] LABS: Alveolar/Arterial O2 Gradient 632.8 mmHg; Base Excess ABG -0.3 mEq/l (+/-2.0); Carboxyhemoglobin 0.3 % THb (0-2.0); Fractional Inspired Oxygen 100 %; HCO3 ABG 22.1 mEq/l (22.0-26.0); Methemoglobin ABG 0.2 %THb (0-1.5); Oxygen Content ABG 18.9 %vol (16.0-22.0); Oxygen Saturation ABG 88.4 % (95.0-100.0); Oxyhemoglobin 86.8 % THb (90.0-100.0); PCO2 ABG 30.3 mmHg (35.0-45.0); Reduced Hemoglobin 12.7 %THb (0-5.0); Total Hemoglobin 15.5 g/dL (12.0-18.0)
[2020-07-07 04:36] LABS: Modified Allen's Test Pass; PO2 ABG 49.9 mmHg (80.0-100.0); Site Drawn LEFT RADIAL
[2020-07-07 05:43] LABS: Basophils Percent Auto 0.1 % (0.2-1.2); Eosinophils Percent Auto 0.1 % (0-4.4); Hematocrit 44.7 % (42.0-52.0); Hemoglobin 14.9 g/dL (14.0-18.0); Immature Granulocyte Absolute 0.18 K/mm3 (0.00-0.031); Immature Granulocyte Percent A 0.9 % (0-0.5); Lymphocytes Absolute Auto 0.36 K/mm3 (0.9-3.2); Lymphocytes Percent Auto 1.9 % (18.3-44.2); Mean Corpuscular HGB Conc 33.3 g/dl (32-36); Mean Corpuscular Volume 95.9 fl (80-100); Mean Platelet Volume 9.6 fl (7.4-10.4); Monocytes Absolute Auto 0.9 K/mm3 (0.1-0.6); Monocytes Percent Auto 4.9 % (2.6-8.5); Neutrophils Absolute Auto 17.7 K/mm3 (1.3-6.7); Neutrophils Percent Auto 92.1 % (45.5-73.1); Platelet Count Result 259 k/mm3 (150-375); Red Blood Count 4.66 M/mm3 (4.6-6.20); Red Cell Distribution Width 12.5 % (11.5-14.5); White Blood Count 19.2 K/mm3 (4.5-10.0)
[2020-07-07] MEDS: MAG HYDROX/AL HYDROX/SIMETH 30 ML UDC PO (06:07)
[2020-07-07 06:17] LABS: D Dimer 6.03 ug/mL (<0.48)
[2020-07-07 06:25] LABS: Alanine Aminotransferase 20 U/L (4-50); Albumin Level 3.3 g/dL (3.5-5.1); Alkaline Phosphatase 102 U/L (38-126); Anion Gap 9 mmol/L (8-16); Aspartate Amino Transferase 30 U/L (17-59); Bilirubin,Total 1.3 mg/dL (0.2-1.3); Blood Urea Nitrogen 44 mg/dL (9-20); CRP 12.7 mg/dL (<1.0); Calcium 9.2 mg/dL (8.4-10.2); Carbon Dioxide 25 mmol/L (22-30); Chloride 105 mmol/L (98-107); Estimated CRCL calculation 93 ml/min; Estimated Glomerular Filt Rate > 60; Glucose 111 mg/dL (75-110); Lactate Dehydrogenase 1063 U/L (313-618); Magnesium 2.9 mg/dL (1.6-2.3); Phosphorus 4.1 mg/dL (2.5-4.5); Potassium 4.4 mmol/L (3.4-5.0); Sodium 139 mmol/L (137-145)
[2020-07-07] MEDS: ASCORBIC ACID 500 MG TABLET PO (09:22)
[2020-07-07] MEDS: CHOLECALCIFEROL 1,000 UNITS TABLET 1000 UNITS PO (09:22)
[2020-07-07] MEDS: ZINC SULFATE 220 MG CAPSULE PO (09:22)
[2020-07-07] MEDS: PANTOPRAZOLE SODIUM IV 40 MG VIAL IV PUSH (09:23)
[2020-07-07] MEDS: ENOXAPARIN 40 MG/0.4 ML SYRINGE SUB-Q ×2 (09:23→21:50)
--- NOTE | 2020-07-07 11:59 | PM.IMPN ---
Progress Note: A&P Assessment and Plan (1) Acute respiratory failure with hypoxia: Code(s): J96.01 - Acute respiratory failure with hypoxia Status: Acute Assessment and Plan: Currently on high flow oxygen. Continuous BiPAP when not on high flow. ABG reviewed. Appreciate cc/int note (2) Pneumonia due to COVID-19 virus: Code(s): U07.1 - COVID-19; J12.89 - Other viral pneumonia Status: Acute Assessment and Plan: Completed Remdesivir and Dexamethasone Inflammatory markers elevated (3) Fluid overload, unspecified: Code(s): E87.70 - Fluid overload, unspecified Status: Acute Assessment and Plan: Resolved Current balance is negative Continue to monitor I/O's (4) Gastroesophageal reflux: Code(s): K21.9 - Gastro-esophageal reflux disease without esophagitis Status: Acute Assessment and Plan: Continue home meds. PPI iv daily. Subjective Date/time seen: 07/07/20 11:59 Patient states the he feels fine. Review of Systems Review of Systems: Narrative: Unable to get a thorough review of systems as patient gets desaturation and fatigue. Exam Narrative: Exam Narrative: Sitting in bed in upright position. On high flow oxygen. Const: General: cooperative, comfortable, well developed, alert and awake Nutritional Appearance: average body habitus Orientation/consciousness: patient oriented x3 Limitations: no limitations HENMT: Head: normocephalic Ears: hearing grossly normal bilaterally General nose exam: Normal external nose present Face and sinus: normal facial exam Mouth: Yes Normal oral and palatal mucosa present Eyes: General: appearance normal, both eyes and all related structures Pupils: Equal, round and reactive pupils present EOM: EOMs intact bilaterally Neck: Neck: full ROM, no lymphadenopathy and supple Resp: Auscultation: clear to auscultation bilaterally and diminished lung sounds Cardio: Jugular venous distension: no JVD Rate: regular rate Rhythm: regular rhythm GI: Inspection: normal to inspection GI Palp: Yes Soft to palpation and Yes No hepatosplenomegaly present Auscultation: normal bowel sounds Skin: General skin exam: normal color Rashes: no rashes Wounds: no wounds Neuro: General: patient oriented x3 Cranial nerves: Yes CN's II-XII intact bilaterally Speech: normal speech Motor exam (neuro): 5/5 motor strength present throughout Extrem: General: normal to inspection and no pedal edema Objective Data Vital Signs Vital Signs: Vital Signs - 24 hr 07/06/20 12:00 07/06/20 13:58 07/06/20 14:00 Temperature 98.2 F Pulse Rate 67 73 70 Respiratory Rate 20 24 H Blood Pressure 106/71 Pulse Oximetry 95 94 07/06/20 14:19 07/06/20 16:00 07/06/20 18:00 Temperature 99.8 F H 99.0 F Pulse Rate 73 63 Respiratory Rate 23 H 22 H Blood Pressure 93/54 L 116/71 Pulse Oximetry 90 93 07/06/20 19:53 07/06/20 20:00 07/06/20 21:09 Temperature 96.9 F L Pulse Rate 63 55 L Respiratory Rate 26 H Blood Pressure 108/74 Pulse Oximetry 92 95 07/06/20 22:00 07/06/20 23:00 07/06/20 23:51 Temperature 96.8 F L Pulse Rate 64 Respiratory Rate 23 H 24 H Blood Pressure 103/82 Pulse Oximetry 95 91 92 07/07/20 00:00 07/07/20 02:00 07/07/20 03:36 Temperature 97 F L 97 F L Pulse Rate 62 68 Respiratory Rate 16 20 Blood Pressure 114/93 H 127/85 Pulse Oximetry 92 93 95 07/07/20 04:00 07/07/20 06:00 07/07/20 08:00 Temperature 97 F L 97.1 F L Pulse Rate 71 72 76 Respiratory Rate 24 H 19 27 H Blood Pressure 123/88 127/95 H 126/90 Pulse Oximetry 94 94 91 07/07/20 09:05 07/07/20 10:00 Temperature 98.4 F Pulse Rate 75 Respiratory Rate 25 H Blood Pressure 112/87 Pulse Oximetry 91 Intake/Output Intake/Output: Intake & Output 07/04/20 07/05/20 07/06/20 07/07/20 23:59 23:59 23:59 23:59 Intake Total 850 1040 950 250 Output Total 1075 8419 200 710 W[facility] -634 -381 484 -325
--- NOTE | 2020-07-07 13:18 | WPDINTPN ---
Progress Note: A&P Assessment and Plan (1) Acute respiratory failure with hypoxia: Code(s): J96.01 - Acute respiratory failure with hypoxia Status: Acute Assessment and Plan: Hypoxic respiratory failure secondary to COVID-19 pneumonia -currently on high-flow therapy with 60 L flow rate at 95% FiO2 intermittent non-rebreather. - ABGs and chest x-rays reviewed -discussed with patient regarding prone position, he is agreeable to try prone position for the 3-4 hours with intervals -patient's respiratory status is acceptable at this time, he slightly tachypneic respiratory rates between 23-27 breaths per minute. States he has not in any distress at this time -I did discuss with him that if his oxygen worsens or he becomes tachypneic, tachycardic or if he has respiratory fatigue he will be intubated and placed on mechanical ventilation to which she is agreeable (2) Pneumonia due to COVID-19 virus: Code(s): U07.1 - COVID-19; J12.89 - Other viral pneumonia Status: Acute Assessment and Plan: SARS-CoV-2 PCR positive -patient has completed a course of dexamethasone and Remdesivir -will start another course of dexamethasone -continue zinc, vitamin-D, vitamin-C (3) Gastroesophageal reflux: Code(s): K21.9 - Gastro-esophageal reflux disease without esophagitis Status: Acute Assessment and Plan: Continue Protonix IV (4) DVT prophylaxis: Code(s): Z29.9 - Encounter for prophylactic measures, unspecified Status: Acute Assessment and Plan: Lovenox 40 mg SQ q.12 hours Additional Plan Discussed with patient and updated with his condition and plan of care. He is willing to try to prone himself. He is also aware that if his P status deteriorates he is agreeable to intubation Code status: Full code Critical care time spent: 34 minutes Due to a high probability of clinically significant, life threatening deterioration, the patient required my highest level of preparedness to intervene emergently and I personally spent this critical care time directly and personally managing the patient. This critical care time included obtaining a history; examining the patient; pulse oximetry; ordering and review of studies; arranging urgent treatment with development of a management plan; evaluation of patient's response to treatment; frequent reassessment; and discussions with other providers. It was exclusive of separately billable procedures and treating other patients and teaching time. Please see Assessment and Plan section and the rest of the note for further information on patient assessment and treatment Subjective Date/time seen: 07/07/20 13:18 Interval history: Reason for consult: Acute hypoxic respiratory failure, COVID-19 pneumonia, fevers 07/07/2020: Patient remains on high-flow therapy with 60 L flow rate and 95% FiO2. Patient intermittently putting on non-rebreather for comfort. I discussed with him regarding prone position to which she agreed. He is using the incentive spirometry. Urine output has been adequate, hemodynamically stable, afebrile. Patient states he feels fine, denies any difficulty breathing, chest pain, nausea, vomiting, loss of smell or taste. Review of Systems Review of Systems: All systems reviewed & are unremarkable except as noted in HPI and below Exam Const: General: comfortable and no acute distress HENMT: Other: BiPAP mask in place Eyes: Sclera: sclerae normal Pupils: Equal, round and reactive pupils present Neck: Neck: supple Resp: Effort & Inspection: normal respiratory effort Auscultation: diminished lung sounds Other: Coarse breath sounds on bases Cardio: Rate: regular rate Rhythm: regular rhythm GI: Inspection: non-distended GI Palp: Yes Soft to palpation and No Tenderness to palpation present (GI) Auscultation: normal bowel sounds : Other: Deferred Urinary Catheter: Urinary Catheter: urine clear Skin: General skin exa
[2020-07-07] MEDS: ACETAMINOPHEN 325 MG TABLET 650 MG PO (16:22)
--- NOTE | 2020-07-07 19:59 | PM.PNPUL ---
Progress Note: A&P Assessment and Plan (1) Pneumonia due to 2019 novel coronavirus: Onset Date: ~06/2020 Code(s): U07.1 - COVID-19; J12.89 - Other viral pneumonia Status: Acute Assessment and Plan: This patient has been in the hospital 10 days, has had remdesivir and dexamethasone with worsening oxygenation, transferred to IMU, responded to BiPAP for several hours, now on HFNC and alternates with bipap with NRM, still desaturates with movement. Now 16 days into his illness. He is not able to rest supine due to back pain and he is able to rest somewhat lateral with head of bed elevated 30-45 degrees. Prone was a bit hard due to back pain. Will need sleep evaluation after discharge. (2) Acute respiratory failure with hypoxia: Code(s): J96.01 - Acute respiratory failure with hypoxia Status: Acute Assessment and Plan: O2 requirement is higher, and he is responding to current changes in treatment. echo Jul 04 - EF 60-65%. He does not have hypertension. BUN increased 44. He is stable but on the edges far as oxygenation. He does agree to intubation but with most of these patients we try to wait as long as possible because they have a way of not doing well with mechanical ventilation. Subjective Date/time seen: 07/07/20 19:59 This 54 yo man is seen in follow up for COVID pneumonia with hypoxemia respiratory failure; - Jun 12- admitted after 6 days of shortness of breath with exertion, productive cough, fevers, low saturation 76% on admission - Jun 28- started remdesivir and dexamethasone - Jul 02 more short of breath; drops in saturation - Jul 03 progressive worsening, moved to [address] [place], [place] [address] with BiPAP started, alternating with AirVo - Jul 07- increased ferritin 467, LDH 1063, CRP 12.7 DATA: Jul 07 - Elevated WBC 19.2, high D-dimer 6.03, ferritin BUN increasing 44 started at 25, may be higher due to steroids. ABG 7.48 /30 / 49.9 / on 100%. Review of Systems Review of Systems: All systems reviewed & are unremarkable except as noted in HPI and below (overall eak, used a bed julien for weakness, couldn't get on BSC) Constitutional: Constitutional: Denies chills and Reports difficulty sleeping Gastrointestinal: Comments: poor appetite, hardly ate anything today Exam Narrative: Exam Narrative: He is weak, in bed, can speak in short sentences Const: General: comfortable (Wearing Nonrebreather mask and high flow system) and no acute distress Eyes: General: appearance normal, both eyes and all related structures Resp: Auscultation: crackles and diminished lung sounds Cardio: Rate: regular rate Rhythm: regular rhythm Heart sounds: no murmurs and no rubs GI: Auscultation: normal bowel sounds Skin: General skin exam: normal color and no rashes or lesions noted Extrem: General: no clubbing, cyanosis or edema and no calf tenderness Other: brisk capillary refill Psych: Mental Status: mental status grossly normal Objective Data Vital Signs Vital Signs: Vital Signs - 24 hr 07/06/20 20:00 07/06/20 21:09 07/06/20 22:00 Temperature 36.1 C L 36.0 C L Pulse Rate 63 55 L 64 Respiratory Rate 26 H 23 H Blood Pressure 108/74 103/82 Pulse Oximetry 95 95 07/06/20 23:00 07/06/20 23:51 07/07/20 00:00 Temperature 36.1 C L Pulse Rate 62 Respiratory Rate 24 H 16 Blood Pressure 114/93 H Pulse Oximetry 91 92 92 07/07/20 02:00 07/07/20 03:36 07/07/20 04:00 Temperature 36.1 C L 36.1 C L Pulse Rate 68 71 Respiratory Rate 20 24 H Blood Pressure 127/85 123/88 Pulse Oximetry 93 95 94 07/07/20 06:00 07/07/20 08:00 07/07/20 09:05 Temperature 36.2 C L 36.9 C Pulse Rate 72 76 Respiratory Rate 19 27 H Blood Pressure 127/95 H 126/90 Pulse Oximetry 94 91 07/07/20 09:30 07/07/20 10:00 07/07/20
[2020-07-08] VITALS (15 sets, daily range): BP systolic 101–122; BP diastolic 52–88; PULSE 53–88; RESP 18–26; TEMP 36.5–37.2; O2SAT 88–99
[2020-07-08 04:15] LABS: Alveolar/Arterial O2 Gradient 613.9 mmHg; Base Excess ABG -0.7 mEq/l (+/-2.0); Carboxyhemoglobin 0.3 % THb (0-2.0); Fractional Inspired Oxygen 100 %; HCO3 ABG 22.6 mEq/l (22.0-26.0); Methemoglobin ABG 0.2 %THb (0-1.5); Oxygen Content ABG 19.5 %vol (16.0-22.0); Oxygen Saturation ABG 93.8 % (95.0-100.0); Oxyhemoglobin 92.1 % THb (90.0-100.0); PCO2 ABG 33.7 mmHg (35.0-45.0); PO2 ABG 65.4 mmHg (80.0-100.0); PO2 FiO2 Ratio Arterial Blood 0.65 %; Reduced Hemoglobin 7.4 %THb (0-5.0); Total Hemoglobin 15.1 g/dL (12.0-18.0); pH ABG 7.444 (7.350-7.450)
[2020-07-08 04:17] LABS: Modified Allen's Test Pass; Site Drawn LEFT RADIAL
[2020-07-08 04:18] LABS: Device NON-INVASIVE VENT; Non-Invasive Expiratory Pressure 12 CMH2O; Non-Invasive Inspiratory Pressure 15 CMH2O; Non-Invasive Vent Rate 14 /MIN
[2020-07-08 05:31] LABS: Hematocrit 42.8 % (42.0-52.0); Hemoglobin 14.5 g/dL (14.0-18.0); Mean Corpuscular HGB Conc 33.9 g/dl (32-36); Mean Corpuscular Hemoglobin 31.9 pg (26-34); Mean Corpuscular Volume 94.3 fl (80-100); Platelet Count Result 267 k/mm3 (150-375); Red Blood Count 4.54 M/mm3 (4.6-6.20); Red Cell Distribution Width 12.5 % (11.5-14.5); White Blood Count 11.5 K/mm3 (4.5-10.0)
[2020-07-08 05:59] LABS: Alanine Aminotransferase 21 U/L (4-50); Albumin Level 3.1 g/dL (3.5-5.1); Alkaline Phosphatase 104 U/L (38-126); Anion Gap 7 mmol/L (8-16); Aspartate Amino Transferase 34 U/L (17-59); Bilirubin,Total 1.1 mg/dL (0.2-1.3); Blood Urea Nitrogen 47 mg/dL (9-20); Calcium 9.2 mg/dL (8.4-10.2); Carbon Dioxide 26 mmol/L (22-30); Chloride 105 mmol/L (98-107); Estimated CRCL calculation 93 ml/min; Estimated Glomerular Filt Rate > 60; Glucose 120 mg/dL (75-110); Magnesium 3.1 mg/dL (1.6-2.3); Phosphorus 3.7 mg/dL (2.5-4.5); Potassium 4.8 mmol/L (3.4-5.0); Sodium 138 mmol/L (137-145)
--- NOTE | 2020-07-08 06:47 | PC.NURSE ---
This patient, Danny Alfaro, was transferred to [ [email or web address]] on 07/08/20 at 0647. Personal belongings sent with patient. Report given to [ Benson ]. Appropriate documentation sent with patient.
[2020-07-08] MEDS: CHOLECALCIFEROL 1,000 UNITS TABLET 1000 UNITS PO (09:33)
[2020-07-08] MEDS: ENOXAPARIN 40 MG/0.4 ML SYRINGE SUB-Q ×2 (09:33→19:36)
[2020-07-08] MEDS: ZINC SULFATE 220 MG CAPSULE PO (09:33)
[2020-07-08] MEDS: ASCORBIC ACID 500 MG TABLET PO (09:33)
[2020-07-08] MEDS: PANTOPRAZOLE SODIUM IV 40 MG VIAL IV PUSH (09:34)
--- NOTE | 2020-07-08 15:02 | PM.PNPUL ---
Progress Note: A&P Assessment and Plan (1) Pneumonia due to 2019 novel coronavirus: Onset Date: ~06/2020 Code(s): U07.1 - COVID-19; J12.89 - Other viral pneumonia Status: Acute Assessment and Plan: This patient has been in the hospital 10 days, has had remdesivir and dexamethasone with worsening oxygenation, transferred to IMU, responded to BiPAP for several hours, now on HFNC and alternates with bipap with NRM, still desaturates with movement. Now 16 days into his illness. He is not able to rest supine due to back pain and he is able to rest somewhat lateral with head of bed elevated 30-45 degrees. Prone was a bit hard due to back pain. Will need sleep evaluation after discharge. (2) Acute respiratory failure with hypoxia: Code(s): J96.01 - Acute respiratory failure with hypoxia Status: Acute Assessment and Plan: O2 requirement is higher, and he is responding to current changes in treatment. echo Jul 04 - EF 60-65%. He does not have hypertension. BUN increased 44. He is stable but on the edges far as oxygenation. He does agree to intubation but with most of these patients we try to wait as long as possible because they have a way of not doing well with mechanical ventilation. Subjective Date/time seen: 07/08/20 15:02 Interval history: 54 y/o with COVID-19 and severe hypoxemic respiratory failure. He denies dyspnea but currently is on max dose of high flow with non rebreather face mask. Blood gases look good from this morning. Bilateral infiltrates mostly in lower lobes Review of Systems Review of Systems: All systems reviewed & are unremarkable except as noted in HPI and below Exam Narrative: Exam Narrative: He is weak, in bed, can speak in short sentences Const: General: comfortable (Wearing Nonrebreather mask and high flow system) and no acute distress Eyes: General: appearance normal, both eyes and all related structures Resp: Auscultation: crackles and diminished lung sounds Cardio: Rate: regular rate Rhythm: regular rhythm Heart sounds: no murmurs and no rubs GI: Auscultation: normal bowel sounds Skin: General skin exam: normal color and no rashes or lesions noted Extrem: General: no clubbing, cyanosis or edema and no calf tenderness Other: brisk capillary refill Psych: Mental Status: mental status grossly normal Objective Data Vital Signs Vital Signs: Vital Signs - 24 hr 07/07/20 16:00 07/07/20 16:22 07/07/20 17:45 Temperature 37.9 C H 37.9 C H 37.3 C Pulse Rate 80 Respiratory Rate 27 H Blood Pressure 109/61 Pulse Oximetry 90 07/07/20 18:00 07/07/20 20:00 07/07/20 22:00 Temperature Pulse Rate 68 77 60 Respiratory Rate 24 H Blood Pressure 86/62 L Pulse Oximetry 91 91 07/07/20 23:34 07/08/20 00:00 07/08/20 01:45 Temperature 37.2 C Pulse Rate 66 53 L Respiratory Rate 18 26 H Blood Pressure 106/72 Pulse Oximetry 92 91 93 07/08/20 02:00 07/08/20 04:00 07/08/20 06:00 Temperature 36.8 C 36.9 C Pulse Rate 66 67 59 L Respiratory Rate 20 18 22 H Blood Pressure 110/52 L 113/86 115/88 Pulse Oximetry 91 94 98 07/08/20 06:22 07/08/20 08:00 07/08/20 10:00 Temperature 37.2 C Pulse Rate 88 66 83 Respiratory Rate 25 H 20 18 Blood Pressure 109/77 120/82 Pulse Oximetry 99 93 91 07/08/20 12:00 07/08/20 14:00 Temperature 37.0 C Pulse Rate 87 60 Respiratory Rate 19 20 Blood Pressure 122/80 101/80 Pulse Oximetry 90 88 L Intake/Output Intake/Output: Intake & Output 07/05/20 07/06/20 07/07/20 07/08/20 23:59 23:59 23:59 23:59 Intake Total 1040 950 900 740 Output Total 1980 200 850 500 Balance -940 750 50 240 Meds/Results Medications: Active Medications Generic Name Dose Route Start Last Admin Trade Name Freq PRN Reason Stop Dose Admin Acetaminophen 650
--- NOTE | 2020-07-08 15:04 | WPDINTPN ---
Progress Note: A&P Assessment and Plan (1) Acute respiratory failure with hypoxia: Code(s): J96.01 - Acute respiratory failure with hypoxia Status: Acute Assessment and Plan: Hypoxic respiratory failure secondary to COVID-19 pneumonia -currently on high-flow therapy with 60 L flow rate at 90% FiO2 . - ABGs and chest x-rays reviewed -discussed with patient regarding prone position, he is agreeable to try prone position for the 3-4 hours with intervals -patient's respiratory status is acceptable at this time, his tachypnea seems to have resolved and is breathing between 16-20 times a minute. States he has not in any distress at this time -I did discuss with him that if his oxygen worsens or he becomes tachypneic, tachycardic or if he has respiratory fatigue he will be intubated and placed on mechanical ventilation to which she is agreeable (2) Pneumonia due to COVID-19 virus: Code(s): U07.1 - COVID-19; J12.89 - Other viral pneumonia Status: Acute Assessment and Plan: SARS-CoV-2 PCR positive -patient has completed a course of dexamethasone and Remdesivir -started patient on a 2nd course of dexamethasone which was initiated on 07/07/2020 -continue zinc, vitamin-D, vitamin-C (3) Gastroesophageal reflux: Code(s): K21.9 - Gastro-esophageal reflux disease without esophagitis Status: Acute Assessment and Plan: Continue Protonix IV (4) DVT prophylaxis: Code(s): Z29.9 - Encounter for prophylactic measures, unspecified Status: Acute Assessment and Plan: Lovenox 40 mg SQ q.12 hours Additional Plan Discussed with patient and updated with his condition and plan of care. Encouraged him to himself if possible. I also discussed with his Temi, and updated her with patient's condition and plan of care. I answered all the questions Code status: Full code Critical care time spent: 35 minutes Due to a high probability of clinically significant, life threatening deterioration, the patient required my highest level of preparedness to intervene emergently and I personally spent this critical care time directly and personally managing the patient. This critical care time included obtaining a history; examining the patient; pulse oximetry; ordering and review of studies; arranging urgent treatment with development of a management plan; evaluation of patient's response to treatment; frequent reassessment; and discussions with other providers. It was exclusive of separately billable procedures and treating other patients and teaching time. Please see Assessment and Plan section and the rest of the note for further information on patient assessment and treatment Subjective Date/time seen: 07/08/20 15:04 Interval history: Reason for consult: Acute hypoxic respiratory failure, COVID-19 pneumonia, fevers 07/08/2020: Patient remains on high-flow therapy, 90% FiO2 and 60 L flow rate. Patient states he feels much better this morning. Respiratory rate is in the upper teens. Denies any cough, loss of smell or taste, chest pain, abdominal pain, nausea vomiting at this time. Urine output has adequate, patient afebrile overnight. ABGs with improved PO2 this morning. Leukocytosis improving Review of Systems Review of Systems: All systems reviewed & are unremarkable except as noted in HPI and below Exam Const: General: comfortable and no acute distress HENMT: Other: High-flow nasal therapy Eyes: Sclera: sclerae normal Pupils: Equal, round and reactive pupils present Neck: Neck: supple Resp: Effort & Inspection: normal respiratory effort Auscultation: diminished lung sounds Other: Coarse breath sounds on bases Cardio: Rate: regular rate Rhythm: regular rhythm GI: Inspection: non-distended GI Palp: Yes Soft to palpation and No Tenderness to palpation present (GI) Auscultation: normal bowel sounds : Other: Deferred Urinary Catheter: Urinary Catheter: urine clear
--- NOTE | 2020-07-08 16:23 | PM.IMPN ---
Progress Note: A&P Assessment and Plan (1) Gastroesophageal reflux: Code(s): K21.9 - Gastro-esophageal reflux disease without esophagitis Status: Acute Assessment and Plan: Stable Continue home meds (2) Pneumonia due to COVID-19 virus: Code(s): U07.1 - COVID-19; J12.89 - Other viral pneumonia Status: Acute Assessment and Plan: Completed course of Remdesivir and Dexamethasone Added Cefepime for probable superinfection with bacterial pneumonia. (3) Acute respiratory failure with hypoxia: Code(s): J96.01 - Acute respiratory failure with hypoxia Status: Acute Assessment and Plan: On High flow alternating with BiPAP Requiring high FiO2 Appreciate Pulm note Appreciate CC/Itn note ABG's noted Subjective Date/time seen: 07/08/20 16:24 States that he feels fine. Review of Systems Review of Systems: Narrative: No complains, however patient is on high flow oxygen currently. Unable to get as patient oxygen saturation gets low. Respiratory: Comments: Productive cough of [place] colored sputum Exam Narrative: Exam Narrative: Sitting in bed on high flow oxygen. Const: General: cooperative, comfortable, alert and awake Nutritional Appearance: average body habitus Orientation/consciousness: patient oriented x3 HENMT: Head: normal to inspection and normocephalic Ears: hearing grossly normal bilaterally General nose exam: Normal external nose present Face and sinus: normal facial exam Eyes: General: appearance normal, both eyes and all related structures Pupils: Equal, round and reactive pupils present EOM: EOMs intact bilaterally Neck: Neck: normal visual inspection, full ROM, no lymphadenopathy and supple Lymphatic: no lymphadenopathy noted Resp: Auscultation: diminished lung sounds and other Objective Data Vital Signs Vital Signs: Vital Signs - 24 hr 07/07/20 17:45 07/07/20 18:00 07/07/20 20:00 Temperature 99.1 F Pulse Rate 68 77 Respiratory Rate 24 H Blood Pressure 86/62 L Pulse Oximetry 91 91 07/07/20 22:00 07/07/20 23:34 07/08/20 00:00 Temperature 98.9 F Pulse Rate 60 66 53 L Respiratory Rate 18 Blood Pressure 106/72 Pulse Oximetry 92 91 07/08/20 01:45 07/08/20 02:00 07/08/20 04:00 Temperature 98.2 F Pulse Rate 66 67 Respiratory Rate 26 H 20 18 Blood Pressure 110/52 L 113/86 Pulse Oximetry 93 91 94 07/08/20 06:00 07/08/20 06:22 07/08/20 08:00 Temperature 98.5 F 98.9 F Pulse Rate 59 L 88 66 Respiratory Rate 22 H 25 H 20 Blood Pressure 115/88 109/77 Pulse Oximetry 98 99 93 07/08/20 10:00 07/08/20 12:00 07/08/20 14:00 Temperature 98.6 F Pulse Rate 83 87 60 Respiratory Rate 18 19 20 Blood Pressure 120/82 122/80 101/80 Pulse Oximetry 91 90 88 L 07/08/20 16:00 Temperature Pulse Rate 63 Respiratory Rate 20 Blood Pressure 101/80 Pulse Oximetry 88 L Intake/Output Intake/Output: Intake & Output 07/05/20 07/06/20 07/07/20 07/08/20 23:59 23:59 23:59 23:59 Intake Total 1040 950 900 740 Output Total 1980 200 850 500 Balance -940 750 50 240 Meds/Results Medications: Active Medications Generic Name Dose Route Start Last Admin Trade Name Freq PRN Reason Stop Dose Admin Acetaminophen 650 mg 06/27/20 23:51 07/07/20 16:22 Acetaminophen 325 Mg Tablet PO 650 mg Q4H PRN Administration Mild Pain (1-3) or Fever Hydrocodone Bitart/Acetaminophen 1 tab 06/27/20 23:38 Hydrocodone/Acetaminophen (*Crx) 5-325 Mg Tablet PO Q4H PRN Pain Rated 4-6 Al Hydrox/Mg Hydrox/Simethicone 30 ml 06/27/20 23:51 07/07/20 06:07 Mag Hydrox/Al Hydrox/Simeth 30 Ml Udc PO 30 ml QID PRN Administration Dyspepsia Albuterol 2 puff 06/29/20 10:15 07/03/20 20:27 Albuterol Sulfate (*Sp) Aerosol 1 Puff INHALATION 2 puff QIDRT PRN Administration Shortness Of Breath Albuterol 5 mg 07/02/20 17:36 Albuterol Sulfate Neb 2.5 Mg/0.5 Ml Inh INHALATION Q6HRT PRN
[2020-07-09] VITALS (19 sets, daily range): BP systolic 102–159; BP diastolic 72–89; PULSE 57–90; RESP 17–25; TEMP 36.6–37.1; O2SAT 86–94
[2020-07-09 05:39] LABS: Hematocrit 40.1 % (42.0-52.0); Hemoglobin 13.7 g/dL (14.0-18.0); Mean Corpuscular HGB Conc 34.2 g/dl (32-36); Mean Corpuscular Hemoglobin 32.1 pg (26-34); Mean Corpuscular Volume 93.9 fl (80-100); Mean Platelet Volume 10.4 fl (7.4-10.4); Platelet Count Result 259 k/mm3 (150-375); Red Blood Count 4.27 M/mm3 (4.6-6.20); Red Cell Distribution Width 12.4 % (11.5-14.5); White Blood Count 16.3 K/mm3 (4.5-10.0)
[2020-07-09 05:50] LABS: D Dimer 2.93 ug/mL (<0.48)
[2020-07-09 05:56] LABS: Potassium 4.6 mmol/L (3.4-5.0)
[2020-07-09 06:09] LABS: Alveolar/Arterial O2 Gradient 629.2 mmHg; Base Excess ABG -0.8 mEq/l (+/-2.0); Carboxyhemoglobin 0.2 % THb (0-2.0); Fractional Inspired Oxygen 100 %; HCO3 ABG 22.3 mEq/l (22.0-26.0); Methemoglobin ABG 0.2 %THb (0-1.5); Oxygen Content ABG 18.9 %vol (16.0-22.0); Oxygen Saturation ABG 88.3 % (95.0-100.0); Oxyhemoglobin 86.2 % THb (90.0-100.0); PCO2 ABG 32.6 mmHg (35.0-45.0); PO2 ABG 51.2 mmHg (80.0-100.0); PO2 FiO2 Ratio Arterial Blood 0.51 %; Reduced Hemoglobin 13.4 %THb (0-5.0); Total Hemoglobin 15.6 g/dL (12.0-18.0); pH ABG 7.452 (7.350-7.450)
[2020-07-09 06:10] LABS: Device HIGH FLOW THERAPY; Site Drawn RIGHT BRACHIAL
[2020-07-09 06:18] LABS: Alanine Aminotransferase 19 U/L (4-50); Alkaline Phosphatase 93 U/L (38-126); Anion Gap 6 mmol/L (8-16); Aspartate Amino Transferase 30 U/L (17-59); Bilirubin,Total 0.8 mg/dL (0.2-1.3); Blood Urea Nitrogen 46 mg/dL (9-20); CRP 4.8 mg/dL (<1.0); Carbon Dioxide 26 mmol/L (22-30); Chloride 106 mmol/L (98-107); Estimated CRCL calculation 93 ml/min; Estimated Glomerular Filt Rate > 60; Glucose 120 mg/dL (75-110); Lactate Dehydrogenase 1088 U/L (313-618); Magnesium 2.9 mg/dL (1.6-2.3); Phosphorus 3.7 mg/dL (2.5-4.5); Sodium 138 mmol/L (137-145)
[2020-07-09] MEDS: ENOXAPARIN 40 MG/0.4 ML SYRINGE SUB-Q ×2 (08:26→20:58)
[2020-07-09] MEDS: PANTOPRAZOLE SODIUM IV 40 MG VIAL IV PUSH (08:27)
[2020-07-09] MEDS: ASCORBIC ACID 500 MG TABLET PO (08:27)
[2020-07-09] MEDS: ZINC SULFATE 220 MG CAPSULE PO (08:27)
[2020-07-09] MEDS: CHOLECALCIFEROL 1,000 UNITS TABLET 1000 UNITS PO (08:27)
[2020-07-09] MEDS: MAG HYDROX/AL HYDROX/SIMETH 30 ML UDC PO ×2 (10:48→22:16)
--- NOTE | 2020-07-09 11:17 | WPDINTPN ---
Progress Note: A&P Assessment and Plan (1) Acute respiratory failure with hypoxia: Code(s): J96.01 - Acute respiratory failure with hypoxia Status: Acute Assessment and Plan: Hypoxic respiratory failure secondary to COVID-19 pneumonia -currently on BIPAP 04/06 with sats > 90% Feels better. - ABGs and chest x-rays reviewed -discussed with patient regarding prone position, he is agreeable to try prone position for the 3-4 hours with intervals -patient's respiratory status is acceptable at this time, his tachypnea seems to have resolved and is breathing between 16-20 times a minute. States he has not in any distress at this time (2) Pneumonia due to COVID-19 virus: Code(s): U07.1 - COVID-19; J12.89 - Other viral pneumonia Status: Acute Assessment and Plan: SARS-CoV-2 PCR positive -patient has completed a course of dexamethasone and Remdesivir -started patient on a 2nd course of dexamethasone which was initiated on 07/07/2020 -continue zinc, vitamin-D, vitamin-C (3) Gastroesophageal reflux: Code(s): K21.9 - Gastro-esophageal reflux disease without esophagitis Status: Acute Assessment and Plan: Continue Protonix IV (4) DVT prophylaxis: Code(s): Z29.9 - Encounter for prophylactic measures, unspecified Status: Acute Assessment and Plan: Lovenox 40 mg SQ q.12 hours Additional Plan Code status: Full code Critical care time spent: 35 minutes Due to a high probability of clinically significant, life threatening deterioration, the patient required my highest level of preparedness to intervene emergently and I personally spent this critical care time directly and personally managing the patient. This critical care time included obtaining a history; examining the patient; pulse oximetry; ordering and review of studies; arranging urgent treatment with development of a management plan; evaluation of patient's response to treatment; frequent reassessment; and discussions with other providers. It was exclusive of separately billable procedures and treating other patients and teaching time. Please see Assessment and Plan section and the rest of the note for further information on patient assessment and treatment Subjective Date/time seen: 07/09/20 11:17 Interval history: Feeling well, no complaints. Back on BIPAP this morning 04/06, 100% Says he feels less short of breath on BIPAP. Review of Systems Review of Systems: All systems reviewed & are unremarkable except as noted in HPI and below Exam Const: General: comfortable and no acute distress HENMT: Other: High-flow nasal therapy Eyes: Sclera: sclerae normal Pupils: Equal, round and reactive pupils present Neck: Neck: supple Resp: Effort & Inspection: normal respiratory effort Auscultation: diminished lung sounds Other: Coarse breath sounds on bases Cardio: Rate: regular rate Rhythm: regular rhythm GI: Inspection: non-distended GI Palp: Yes Soft to palpation and No Tenderness to palpation present (GI) Auscultation: normal bowel sounds : Other: Deferred Urinary Catheter: Urinary Catheter: urine clear Skin: General skin exam: normal color and no rashes or lesions noted Neuro: Cranial nerves: Yes Equal, round and reactive pupils present Other: Patient is awake, alert, oriented x3, nonfocal and answers to questions appropriately Extrem: General: normal to inspection, no edema and no pedal edema Psych: Mental Status: mental status grossly normal Affect: normal affect Objective Data Vital Signs Vital Signs: Vital Signs - 24 hr 07/08/20 12:00 07/08/20 14:00 07/08/20 16:00 Temperature 37.0 C Pulse Rate 87 60 63 Respiratory Rate 19 20 20 Blood Pressure 122/80 101/80 101/80 Pulse Oximetry 90 88 L 88 L 07/08/20 18:00 07/08/20 19:55 07/08/20 20:00 Temperature 36.5 C Pulse Rate 75 65 75 Respiratory Rate 19 19 Blood Pressure 115/80 102/77 Pulse Oximetry 89 L 91 90 07/08
[2020-07-09] MEDS: ALBUTEROL SULFATE (*SP) AEROSOL 1 PUFF 2 PUFF INHALATION (21:23)
[2020-07-10] VITALS (43 sets, daily range): BP systolic 74–158; BP diastolic 52–104; PULSE 52–119; RESP 17–34; TEMP 36.4–36.8; O2SAT 87–97
[2020-07-10] MEDS: ALBUTEROL SULFATE (*SP) AEROSOL 1 PUFF 2 PUFF INHALATION (01:42)
[2020-07-10 05:17] LABS: Base Excess ABG -1.9 mEq/l (+/-2.0); Carboxyhemoglobin 0.1 % THb (0-2.0); Device CPAP; Fractional Inspired Oxygen 100 %; HCO3 ABG 21.2 mEq/l (22.0-26.0); Methemoglobin ABG 0.2 %THb (0-1.5); Modified Allen's Test Pass; Oxygen Content ABG 19.6 %vol (16.0-22.0); Oxygen Saturation ABG 94.4 % (95.0-100.0); PO2 FiO2 Ratio Arterial Blood 0.68 %; Reduced Hemoglobin 6.7 %THb (0-5.0); Site Drawn RIGHT RADIAL
[2020-07-10 05:18] LABS: CPAP 10 cmH2O
[2020-07-10] MEDS: DEXAMETHASONE SOD PHOS INJ 4 MG/ML VIAL 6 MG IV PUSH ×3 (06:12→18:08)
[2020-07-10 06:26] LABS: Hematocrit 40.8 % (42.0-52.0); Hemoglobin 13.9 g/dL (14.0-18.0); Mean Corpuscular HGB Conc 34.1 g/dl (32-36); Mean Corpuscular Volume 93.8 fl (80-100); Mean Platelet Volume 10.3 fl (7.4-10.4); Platelet Count Result 235 k/mm3 (150-375); Red Blood Count 4.35 M/mm3 (4.6-6.20); Red Cell Distribution Width 12.3 % (11.5-14.5)
[2020-07-10 06:38] LABS: Alanine Aminotransferase 20 U/L (4-50); Albumin Level 3.2 g/dL (3.5-5.1); Alkaline Phosphatase 94 U/L (38-126); Anion Gap 9 mmol/L (8-16); Aspartate Amino Transferase 30 U/L (17-59); Bilirubin,Total 0.8 mg/dL (0.2-1.3); Blood Urea Nitrogen 42 mg/dL (9-20); Calcium 8.9 mg/dL (8.4-10.2); Carbon Dioxide 25 mmol/L (22-30); Chloride 105 mmol/L (98-107); Estimated CRCL calculation 93 ml/min; Estimated Glomerular Filt Rate > 60; Glucose 116 mg/dL (75-110); Magnesium 2.8 mg/dL (1.6-2.3); Phosphorus 3.7 mg/dL (2.5-4.5); Potassium 4.8 mmol/L (3.4-5.0); Sodium 139 mmol/L (137-145)
[2020-07-10] MEDS: ASCORBIC ACID 500 MG TABLET PO (08:41)
[2020-07-10] MEDS: FUROSEMIDE INJ 40 MG/4 ML VIAL 20 MG IV PUSH (08:41)
[2020-07-10] MEDS: ENOXAPARIN 40 MG/0.4 ML SYRINGE SUB-Q ×2 (08:42→21:04)
[2020-07-10] MEDS: ZINC SULFATE 220 MG CAPSULE PO (08:42)
[2020-07-10] MEDS: CHOLECALCIFEROL 1,000 UNITS TABLET 1000 UNITS PO (08:42)
[2020-07-10] MEDS: PANTOPRAZOLE SODIUM IV 40 MG VIAL IV PUSH (08:42)
[2020-07-10] MEDS: guaiFENesin 200 MG/10 ML UDC PO (08:49)
[2020-07-10] MEDS: LORazepam INJ (*CRX) 2 MG/ML VIAL 0.25 MG IV PUSH (12:04)
[2020-07-10] MEDS: METOCLOPRAMIDE HCL INJ 10 MG/2 ML VIAL 5 MG IV PUSH ×2 (12:08→18:08)
[2020-07-10] MEDS: FENTANYL 2,500MCG/NS250ML(*CRX 2,500 MCG/250 ML BAG IV CONT (12:30)
--- NOTE | 2020-07-10 13:11 | P.OP_ITS ---
Procedure Note - Detailed Date of procedure: 07/10/20 Pre-op diagnosis: COVID, Hypoxia, right pneumothorax Post-op diagnosis: same Procedure performed: Right thoracostomy tube placement Description of procedure: Emergent nature of condition precludes formal consent. Consent implied based on current treatment. Time-out was done to confirm patient and procedure. Patient was placed in supine position in hospital bed. His right chest area was prepped and draped in sterile fashion using chlorhexidine prep. A 2 cm incision was made in the right anterior axillary line using a 15 blade scalpel. Careful blunt dissection was carried out down to the 5th rib. A curved hemostat was then used to bluntly dissect directly over the 5th rib and into the 4th intercostal space. Then bluntly entered into the intercostal space and through the pleura into the pleural cavity. A gush of air was released. A 28 [place] chest tube was then advanced cephalad and anteriorly. The chest tube was sutured in place using 0 silk suture. Vaseline gauze was then applied at the insertion site, followed by 4 x 4 gauze and silk tape. The chest tube was applied to -20 cm of water suction. The patient was then sat up in bed and chest x-ray was ordered to confirm placement. Anesthesia: none Surgeon: Amandeep Shaw DO Estimated blood loss (mL): 2 Drains: Yes ( 28 [place] chest tube) Complications: No immediate complications Condition: critical Disposition: ICU Findings: * Right chest tube placed emergently for pneumothorax. Chest tube placed uneventfully. Oxygen saturation improved.
[2020-07-10] MEDS: LIDOCAINE HCL 1% PF INJ 5 ML VIAL INFILTRATE (14:10)
--- NOTE | 2020-07-10 14:10 | WPDINTPN ---
Progress Note: A&P Assessment and Plan (1) Acute respiratory failure with hypoxia: Code(s): J96.01 - Acute respiratory failure with hypoxia Status: Acute Assessment and Plan: Hypoxic respiratory failure secondary to COVID-19 pneumonia -patient failed BiPAP and CPAP on 07/10/2020, with tachypnea, tachycardia, use of accessory muscles of respiration. Patient in impending respiratory failure - intubated on 07/10/2020 -post intubation chest x-ray showed pneumothorax, status post emergent needle decompression and chest tube placement with improvement in oxygenation and ventilation -started patient on Flolan -will sedate patient with fentanyl and Versed infusion (2) Pneumonia due to COVID-19 virus: Code(s): U07.1 - COVID-19; J12.89 - Other viral pneumonia Status: Acute Assessment and Plan: SARS-CoV-2 PCR positive -patient has completed a course of dexamethasone and Remdesivir -started patient on a 2nd course of dexamethasone which was initiated on 07/07/2020 -continue zinc, vitamin-D, vitamin-C (3) Gastroesophageal reflux: Code(s): K21.9 - Gastro-esophageal reflux disease without esophagitis Status: Acute Assessment and Plan: Continue Protonix IV (4) DVT prophylaxis: Code(s): Z29.9 - Encounter for prophylactic measures, unspecified Status: Acute Assessment and Plan: Lovenox 40 mg SQ q.12 hours Additional Plan Discussed with Temi, patient's her with patient's condition and plan of care. I did discuss with her regarding the intubation and the pneumothorax. I answered all questions Code status: Full code Critical care time spent: 47 minutes Due to a high probability of clinically significant, life threatening deterioration, the patient required my highest level of preparedness to intervene emergently and I personally spent this critical care time directly and personally managing the patient. This critical care time included obtaining a history; examining the patient; pulse oximetry; ordering and review of studies; arranging urgent treatment with development of a management plan; evaluation of patient's response to treatment; frequent reassessment; and discussions with other providers. It was exclusive of separately billable procedures and treating other patients and teaching time. Please see Assessment and Plan section and the rest of the note for further information on patient assessment and treatment Subjective Date/time seen: 07/10/20 14:10 Interval history: Interval history: Reason for consult: Acute hypoxic respiratory failure, COVID-19 pneumonia, fevers Intubated on 07/10/2020, chest tube placed on 07/10/2020 07/10/2020: Patient seen examined this morning, patient was tachypneic cardiac, short of breath not moving in of air, on BiPAP machine with significant high tidal volumes. Placed patient on CPAP with CPAP of 8. Discussed with patient at length regarding intubation since he was in impending respiratory failure. Patient agreed for intubation, post intubation chest x-ray showed large right-sided pneumonia, needle decompression was done until the surgeon arrived and placed a chest tube. Oxygen saturations improved significantly post chest tube placement. Patient on Flolan was sedated with fentanyl and Versed infusion Review of Systems Review of Systems: ROS unobtainable: Yes unobtainable due to endotracheal tube Exam Narrative: Exam Narrative: Intubated and sedated Const: General: comfortable and no acute distress HENMT: Other: ETT in place Eyes: Sclera: sclerae normal Pupils: Equal, round and reactive pupils present Neck: Neck: supple Resp: Effort & Inspection: normal respiratory effort Auscultation: rales and diminished lung sounds Other: Coarse breath sounds on bases Cardio: Rate: regular rate and tachycardic GI: Inspection: non-distended GI Palp: Yes Soft to palpation and No Tenderness to palpation present (GI) Auscultatio
--- NOTE | 2020-07-10 14:42 | WPDPROCEDUR ---
Procedures Intubation Intubation Date: 07/10/20 A pre-procedural Time-Out was completed immediately before starting the procedure and confirmed: Patient Identification, Site, Procedure, Patient Position and the Availability of Requisite Equipment: Yes Sedative: etomidate Paralytic: rocuronium Laryngoscope: fiber optic video scope Assist device used: fiber optic device ET tube size: 8 Tube secured depth (cm): 24 Tube secured location: lips Tube placement confirmation: visualized tube passing through cords, equal breath sounds bilaterally, no breath sounds over epigastrium and confirmation by capnometry Patient tolerated procedure: well and other Intubation complications: none
[2020-07-10] MEDS: EPOPROSTENOL SODIUM 0.5 MG VIAL 1 MG INHALATION ×2 (14:49→19:48)
[2020-07-10] MEDS: ROCURONIUM BROMIDE 50 MG/5 ML VIAL (15:12)
[2020-07-10] MEDS: PROPOFOL IV EMULSION 100 ML 14.18 MG IV CONT (15:15)
[2020-07-10 15:29] LABS: Alveolar/Arterial O2 Gradient 544.1 mmHg; Base Excess ABG -9.9 mEq/l (+/-2.0); Carboxyhemoglobin 0.3 % THb (0-2.0); Fractional Inspired Oxygen 100 %; HCO3 ABG 21.4 mEq/l (22.0-26.0); Methemoglobin ABG 0.4 %THb (0-1.5); Oxygen Content ABG 21.6 %vol (16.0-22.0); Oxygen Saturation ABG 94.5 % (95.0-100.0); Oxyhemoglobin 93.8 % THb (90.0-100.0); PO2 ABG 97.7 mmHg (80.0-100.0); PO2 FiO2 Ratio Arterial Blood 0.98 %; Reduced Hemoglobin 5.5 %THb (0-5.0); Total Hemoglobin 16.3 g/dL (12.0-18.0)
[2020-07-10 15:33] LABS: Arterial Blood Gas PEEP 12 cmH2O; Arterial Blood Gas Tidal Volume 350 ml; Arterial Blood Gas Vent Mode ASSIST CONTROL; Arterial Blood Gas Ventilator rate 30 /MIN; Device VENTILATOR; Modified Allen's Test Pass; PCO2 ABG 71.2 mmHg (35.0-45.0); Site Drawn RIGHT RADIAL; pH ABG 7.096 (7.350-7.450)
[2020-07-10 16:28] LABS: Alveolar/Arterial O2 Gradient 571.9 mmHg; Base Excess ABG -7.4 mEq/l (+/-2.0); Carboxyhemoglobin 0.8 % THb (0-2.0); Fractional Inspired Oxygen 100 %; HCO3 ABG 22.3 mEq/l (22.0-26.0); Methemoglobin ABG 0.3 %THb (0-1.5); Oxygen Content ABG 20.9 %vol (16.0-22.0); Oxygen Saturation ABG 91.9 % (95.0-100.0); Oxyhemoglobin 91.7 % THb (90.0-100.0); PO2 ABG 78.6 mmHg (80.0-100.0); PO2 FiO2 Ratio Arterial Blood 0.79 %; Reduced Hemoglobin 7.2 %THb (0-5.0); Total Hemoglobin 16.2 g/dL (12.0-18.0)
[2020-07-10 16:32] LABS: Device VENTILATOR; Modified Allen's Test Pass; PCO2 ABG 62.5 mmHg (35.0-45.0); Site Drawn LEFT RADIAL
[2020-07-10 16:33] LABS: Arterial Blood Gas PEEP 12 cmH2O; Arterial Blood Gas Tidal Volume 350 ml; Arterial Blood Gas Vent Mode CMV; Arterial Blood Gas Ventilator rate 30 /MIN
[2020-07-10 18:19] LABS: Alveolar/Arterial O2 Gradient 561.8 mmHg; Base Excess ABG -7.8 mEq/l (+/-2.0); Carboxyhemoglobin 0.4 % THb (0-2.0); Device VENTILATOR; Fractional Inspired Oxygen 100 %; HCO3 ABG 20.9 mEq/l (22.0-26.0); Methemoglobin ABG 0.3 %THb (0-1.5); Modified Allen's Test Pass; Oxygen Content ABG 21.7 %vol (16.0-22.0); Oxygen Saturation ABG 95.7 % (95.0-100.0); Oxyhemoglobin 95.2 % THb (90.0-100.0); PCO2 ABG 54.9 mmHg (35.0-45.0); PO2 ABG 96.3 mmHg (80.0-100.0); PO2 FiO2 Ratio Arterial Blood 0.96 %; Reduced Hemoglobin 4.1 %THb (0-5.0); Site Drawn RIGHT RADIAL; Total Hemoglobin 16.2 g/dL (12.0-18.0); pH ABG 7.199 (7.350-7.450)
[2020-07-10 18:20] LABS: Arterial Blood Gas PEEP 12 cmH2O; Arterial Blood Gas Tidal Volume 420 ml; Arterial Blood Gas Vent Mode ASSIST CONTROL; Arterial Blood Gas Ventilator rate 32 /MIN
[2020-07-10] MEDS: SODIUM BICARBONATE 8.4% 50 MEQ/50 ML VIAL (18:32)
[2020-07-10] MEDS: SODIUM CHLORIDE 0.9% IV 500 ML IV CONT (21:03)
[2020-07-10] MEDS: CENTRAL LINE FLUSH 10 ML IV PUSH (21:03)
[2020-07-10] MEDS: PROPOFOL IV EMULSION 100 ML 11.34 MG IV CONT (21:05)
[2020-07-10] MEDS: NOREPINEPHRINE 8 MG/D5W 250 ML 8 MG/250 ML BAG 9.38 MG IV CONT (22:12)
--- NOTE | 2020-07-10 22:28 | PM.PNPUL ---
Progress Note: A&P Assessment and Plan (1) Acute respiratory failure with hypoxia: Code(s): J96.01 - Acute respiratory failure with hypoxia Status: Acute Assessment and Plan: Hypoxic respiratory failure secondary to COVID-19 pneumonia -currently on BIPAP 04/06 with sats > 90% Feels better. - ABGs and chest x-rays reviewed -discussed with patient regarding prone position, he is agreeable to try prone position for the 3-4 hours with intervals -patient's respiratory status is acceptable at this time, his tachypnea seems to have resolved and is breathing between 16-20 times a minute. States he has not in any distress at this time (2) Pneumonia due to COVID-19 virus: Code(s): U07.1 - COVID-19; J12.89 - Other viral pneumonia Status: Acute Assessment and Plan: SARS-CoV-2 PCR positive -patient has completed a course of dexamethasone and Remdesivir -started patient on a 2nd course of dexamethasone which was initiated on 07/07/2020 -continue zinc, vitamin-D, vitamin-C (3) Gastroesophageal reflux: Code(s): K21.9 - Gastro-esophageal reflux disease without esophagitis Status: Acute Assessment and Plan: Continue Protonix IV (4) DVT prophylaxis: Code(s): Z29.9 - Encounter for prophylactic measures, unspecified Status: Acute Assessment and Plan: Lovenox 40 mg SQ q.12 hours Subjective Date/time seen: 07/10/20 22:28 Interval history: No acute events overnight. Alternating between NIV and high flow nasal cannula + non rebreathreather. [place] very short of breath when moving from bed to bedside chair. Review of Systems Review of Systems: All systems reviewed & are unremarkable except as noted in HPI and below Exam Const: General: healthy appearing, alert, awake, Physically active and acute distress moderate and respiratory HENMT: General nose exam: Normal external nose present (nasal cyanosis present ) Other: High-flow nasal therapy Eyes: Sclera: sclerae normal Pupils: Equal, round and reactive pupils present Neck: Neck: supple Resp: Effort & Inspection: normal respiratory effort Auscultation: diminished lung sounds Other: Coarse breath sounds on bases Cardio: Rate: regular rate Rhythm: regular rhythm GI: Inspection: non-distended GI Palp: Yes Soft to palpation and No Tenderness to palpation present (GI) Auscultation: normal bowel sounds : Other: Deferred Urinary Catheter: Urinary Catheter: urine clear Skin: General skin exam: normal color and no rashes or lesions noted Neuro: Cranial nerves: Yes Equal, round and reactive pupils present Other: Patient is awake, alert, oriented x3, nonfocal and answers to questions appropriately Extrem: General: normal to inspection, no edema and no pedal edema Psych: Mental Status: mental status grossly normal Affect: normal affect Objective Data Vital Signs Vital Signs: Vital Signs - 24 hr 07/10/20 00:00 07/10/20 01:04 07/10/20 01:31 Temperature 36.4 C Pulse Rate 60 52 L 57 L Respiratory Rate 17 17 30 H Blood Pressure 113/83 Pulse Oximetry 92 95 95 07/10/20 01:42 07/10/20 02:00 07/10/20 03:04 Temperature Pulse Rate 58 L 61 57 L Respiratory Rate 23 H 24 H 22 H Blood Pressure 115/82 Pulse Oximetry 94 93 07/10/20 04:00 07/10/20 05:12 07/10/20 06:00 Temperature 36.7 C Pulse Rate 54 L 55 L 56 L Respiratory Rate 21 H 20 17 Blood Pressure 119/72 117/79 Pulse Oximetry 93 92 92 07/10/20 08:00 07/10/20 08:30 07/10/20 10:00 Temperature 36.8 C Pulse Rate 61 90 96 Respiratory Rate 17 24 H 33 H Blood Pressure 103/82 100/80 Pulse Oximetry 92 90 90 07/10/20 11:00 07/10/20 12:00 07/10/20 12:30 Temperature 36.6 C Pulse Rate 88 113 H 115 H Respiratory Rate 26 H 30 H 33 H Blood Pressure 148/104 H Pulse Oximetry 90 87 L 07/10/20 13:00 07/10/20 14:00 07/10/20 15:15 Temperature Pulse Rate 84 116 H 109 H Respiratory Rate 32 H 27 H 34 H Blood Pressure 158/
[2020-07-11] VITALS (51 sets, daily range): BP systolic 87–125; BP diastolic 55–78; PULSE 51–68; RESP 22–33; TEMP 36.2–36.6; O2SAT 95–98
[2020-07-11] MEDS: METOCLOPRAMIDE HCL INJ 10 MG/2 ML VIAL 5 MG IV PUSH ×4 (00:23→17:06)
[2020-07-11] MEDS: DEXAMETHASONE SOD PHOS INJ 4 MG/ML VIAL 6 MG IV PUSH ×4 (00:25→17:06)
[2020-07-11] MEDS: FENTANYL 2,500MCG/NS250ML(*CRX 2,500 MCG/250 ML BAG 17.5 MCG IV CONT (00:36)
[2020-07-11] MEDS: EPOPROSTENOL SODIUM 0.5 MG VIAL 1 MG INHALATION ×3 (02:08→14:26)
[2020-07-11 03:56] LABS: Alveolar/Arterial O2 Gradient 555.7 mmHg; Base Excess ABG -4.9 mEq/l (+/-2.0); Carboxyhemoglobin 0.3 % THb (0-2.0); Fractional Inspired Oxygen 100 %; HCO3 ABG 21.7 mEq/l (22.0-26.0); Methemoglobin ABG 0.3 %THb (0-1.5); Oxygen Content ABG 21.2 %vol (16.0-22.0); Oxygen Saturation ABG 97.6 % (95.0-100.0); Oxyhemoglobin 96.9 % THb (90.0-100.0); PCO2 ABG 45.9 mmHg (35.0-45.0); PO2 ABG 111.4 mmHg (80.0-100.0); PO2 FiO2 Ratio Arterial Blood 1.11 %; Reduced Hemoglobin 2.5 %THb (0-5.0); Total Hemoglobin 15.5 g/dL (12.0-18.0)
[2020-07-11 03:58] LABS: Device VENTILATOR; Modified Allen's Test Unable to perform; Site Drawn RIGHT RADIAL
[2020-07-11 03:59] LABS: Arterial Blood Gas PEEP 12 cmH2O; Arterial Blood Gas Tidal Volume 420 ml; Arterial Blood Gas Vent Mode CMV; Arterial Blood Gas Ventilator rate 32 /MIN
[2020-07-11 04:00] LABS: pH ABG 7.293 (7.350-7.450)
[2020-07-11 05:01] LABS: Hematocrit 42.8 % (42.0-52.0); Mean Corpuscular HGB Conc 32.7 g/dl (32-36); Mean Corpuscular Hemoglobin 31.6 pg (26-34); Mean Corpuscular Volume 96.6 fl (80-100); Mean Platelet Volume 10.9 fl (7.4-10.4); Platelet Count Result 343 k/mm3 (150-375); Red Blood Count 4.43 M/mm3 (4.6-6.20); Red Cell Distribution Width 12.3 % (11.5-14.5); White Blood Count 23.1 K/mm3 (4.5-10.0)
[2020-07-11 05:19] LABS: D Dimer 3.81 ug/mL (<0.48)
[2020-07-11 05:30] LABS: Alanine Aminotransferase 29 U/L (4-50); Albumin Level 2.9 g/dL (3.5-5.1); Alkaline Phosphatase 91 U/L (38-126); Anion Gap 5 mmol/L (8-16); Aspartate Amino Transferase 36 U/L (17-59); Bilirubin,Total 0.7 mg/dL (0.2-1.3); Blood Urea Nitrogen 72 mg/dL (9-20); CRP 2.5 mg/dL (<1.0); Calcium 8.2 mg/dL (8.4-10.2); Carbon Dioxide 28 mmol/L (22-30); Chloride 101 mmol/L (98-107); Estimated CRCL calculation 59 ml/min; Estimated Glomerular Filt Rate 57; Glucose 213 mg/dL (75-110); Lactate Dehydrogenase 1076 U/L (313-618); Magnesium 3.3 mg/dL (1.6-2.3); Phosphorus 5.6 mg/dL (2.5-4.5); Potassium 5.3 mmol/L (3.4-5.0); Sodium 134 mmol/L (137-145)
[2020-07-11] MEDS: CENTRAL LINE FLUSH 10 ML IV PUSH ×3 (05:38→20:57)
[2020-07-11] MEDS: PANTOPRAZOLE SODIUM IV 40 MG VIAL IV PUSH (07:56)
[2020-07-11] MEDS: ZINC SULFATE 220 MG CAPSULE PO (07:56)
[2020-07-11] MEDS: ENOXAPARIN 40 MG/0.4 ML SYRINGE SUB-Q ×2 (07:56→20:56)
[2020-07-11] MEDS: CHOLECALCIFEROL 1,000 UNITS TABLET 1000 UNITS PO (07:57)
[2020-07-11] MEDS: ASCORBIC ACID 500 MG TABLET PO (07:58)
[2020-07-11] MEDS: PROPOFOL IV EMULSION 100 ML 5.67 MG IV CONT (07:59)
[2020-07-11 13:18] LABS: Alveolar/Arterial O2 Gradient 469.4 mmHg; Base Excess ABG -3.2 mEq/l (+/-2.0); Fractional Inspired Oxygen 100 %; HCO3 ABG 24.2 mEq/l (22.0-26.0); Oxygen Content ABG 21.1 %vol (16.0-22.0); Oxygen Saturation ABG 99.1 % (95.0-100.0); Oxyhemoglobin 98.3 % THb (90.0-100.0); PCO2 ABG 52.6 mmHg (35.0-45.0); PO2 FiO2 Ratio Arterial Blood 1.91 %
[2020-07-11 13:19] LABS: Device VENTILATOR; Modified Allen's Test Pass; Site Drawn RIGHT RADIAL; pH ABG 7.281 (7.350-7.450)
[2020-07-11 13:20] LABS: Arterial Blood Gas PEEP 10 cmH2O; Arterial Blood Gas Tidal Volume 420 ml; Arterial Blood Gas Vent Mode CMV; Arterial Blood Gas Ventilator rate 32 /MIN
--- NOTE | 2020-07-11 14:11 | WPDINTPN ---
Progress Note: A&P Assessment and Plan (1) Acute respiratory failure with hypoxia: Code(s): J96.01 - Acute respiratory failure with hypoxia Status: Acute Assessment and Plan: Hypoxic respiratory failure secondary to COVID-19 pneumonia - ABGs and chest x-rays reviewed combined respiratory and metabolic acidosis - CMV 420/32/100%/PEEP 12. Weaned to PEEP of 10. Currently on < 6 ml/kg low tidal volume strategy - Flolan can be weaned off as his oxygenation is improving - right chest tube inplaced for spontaneous pneumothorax from barotrauma. (2) Pneumonia due to COVID-19 virus: Code(s): U07.1 - COVID-19; J12.89 - Other viral pneumonia Status: Acute Assessment and Plan: SARS-CoV-2 PCR positive -patient has completed a course of dexamethasone and Remdesivir -started patient on a 2nd course of dexamethasone which was initiated on 07/07/2020 -continue zinc, vitamin-D, vitamin-C (3) Gastroesophageal reflux: Code(s): K21.9 - Gastro-esophageal reflux disease without esophagitis Status: Acute Assessment and Plan: Continue Protonix IV (4) DVT prophylaxis: Code(s): Z29.9 - Encounter for prophylactic measures, unspecified Status: Acute Assessment and Plan: Lovenox 40 mg SQ q.12 hours Additional Plan Code status: Full code Critical care time spent: 35 minutes Due to a high probability of clinically significant, life threatening deterioration, the patient required my highest level of preparedness to intervene emergently and I personally spent this critical care time directly and personally managing the patient. This critical care time included obtaining a history; examining the patient; pulse oximetry; ordering and review of studies; arranging urgent treatment with development of a management plan; evaluation of patient's response to treatment; frequent reassessment; and discussions with other providers. It was exclusive of separately billable procedures and treating other patients and teaching time. Please see Assessment and Plan section and the rest of the note for further information on patient assessment and treatment Subjective Date/time seen: 07/11/20 14:11 Interval history: Developed right pneumothorax with worsening respiratory failure yesterday and was intubated, right chest tube placed. Review of Systems Review of Systems: All systems reviewed & are unremarkable except as noted in HPI and below Exam Narrative: Exam Narrative: Intubated and sedated Const: General: comfortable and no acute distress HENMT: Other: ETT in place Eyes: Sclera: sclerae normal Pupils: Equal, round and reactive pupils present Neck: Neck: supple Resp: Effort & Inspection: normal respiratory effort Auscultation: rales and diminished lung sounds Other: Coarse breath sounds on bases Cardio: Rate: regular rate and tachycardic GI: Inspection: non-distended GI Palp: Yes Soft to palpation and No Tenderness to palpation present (GI) Auscultation: abnormal bowel sounds (Hypoactive bowel sounds ) : Other: Amanda catheter in place Urinary Catheter: Urinary Catheter: patent and draining and urine clear Skin: General skin exam: normal color and no rashes or lesions noted Neuro: Other: Patient intubated and sedated -prior to sedation patient was awake, alert, oriented x3 Extrem: General: normal to inspection, no edema and no pedal edema Other: brisk capillary refill Psych: Other: Unable to assess at this time Objective Data Vital Signs Vital Signs: Vital Signs - 24 hr 07/10/20 15:15 07/10/20 16:00 07/10/20 16:34 Temperature 36.6 C Pulse Rate 109 H 88 88 Respiratory Rate 34 H 30 H Blood Pressure 99/72 L Pulse Oximetry 94 94 07/10/20 17:00 07/10/20 17:36 07/10/20 17:38 Temperature Pulse Rate 80 80 80 Respiratory Rate 32 H 32 H 32 H Blood Pressure Pulse Oximetry 07/10/20 17:55 07/10/20 18:00 07/10/20 19:00 Temperature
[2020-07-11 14:44] LABS: Lactic Acid Reflex 1.9 mmol/L (0.7-2.1)
[2020-07-11] MEDS: NOREPINEPHRINE 8 MG/D5W 250 ML 8 MG/250 ML BAG 13.13 MG IV CONT (17:03)
[2020-07-11] MEDS: FENTANYL 2,500MCG/NS250ML(*CRX 2,500 MCG/250 ML BAG 15 MCG IV CONT (17:04)
--- NOTE | 2020-07-11 18:25 | PM.IMPN ---
Progress Note: A&P Assessment and Plan (1) Gastroesophageal reflux: Code(s): K21.9 - Gastro-esophageal reflux disease without esophagitis Status: Acute Assessment and Plan: Protonix (2) Pneumonia due to COVID-19 virus: Code(s): U07.1 - COVID-19; J12.89 - Other viral pneumonia Status: Acute (3) Acute respiratory failure with hypoxia: Code(s): J96.01 - Acute respiratory failure with hypoxia Status: Acute (4) Acute pneumothorax: Code(s): J93.83 - Other pneumothorax Status: Acute Additional Plan # COVID-19 pneumonia # acute hypoxic respiratory failure -diagnosed around 06/25, admitted 06/27 - completed remdesivir/dexamethasone, restarted dexamethasone 07/07 - supplements: zinc, vitamin-C, vitamin-D - Albuterol nebulizer scheduled - Tylenol for fever - will trend inflammatory markers Q 48 hours - convalescent plasma ordered 06/30/2020 - intubated 07/10 - ventilator CMV for 2/100%/peep 10 - weaning off Flolan which was started after spontaneous pneumothorax - sedation: Fentanyl and Versed - starting tube feeds on 07/11 - PRN levophed for hypotension # right-sided spontaneous pneumothorax -status post chest tube right chest -post intubation pneumothorax 07/10/2020 which was emergently needle decompressed and chest tube placed #other conditions -GERD: Protonix Diet: tube feeds DVT prophylaxis: Lovenox 40mg BID for covid-19 GI prophylaxis: Protonix IV Code status: Full code Disposition: Intensive care unit Social: [phone] Subjective Date/time seen: 07/11/20 18:25 Patient examined. He is intubated and sedated. He has been also fallen. He has a right chest tube for spontaneous pneumothorax from ventilator associated barotrauma. He is doing well on CMV 2/100%/peep 10. Starting tube feeds today. Review of Systems Review of Systems: ROS unobtainable: Yes unobtainable due to endotracheal tube Exam Narrative: Exam Narrative: - GENERAL: Male intubated and sedated - HENT: Intubated with OG tube, neck supple - LUNGS: Diminished lung sounds, breathing with the ventilator, chest tube right chest - CARDIOVASCULAR: Regular rate and rhythm. - ABDOMEN: Soft, non-tender and non-distended. - EXTREMITIES: No edema. Peripheral pulses 2+. - NEUROLOGIC: Unable to evaluate intubated, sedated - PSYCHIATRIC: Unable to evaluate intubated, sedated Objective Data Vital Signs Vital Signs: Vital Signs - 24 hr 07/10/20 19:00 07/10/20 19:02 07/10/20 19:03 Temperature Pulse Rate 72 77 77 Respiratory Rate 32 H 32 H 32 H Blood Pressure 76/59 L Pulse Oximetry 96 07/10/20 19:48 07/10/20 20:00 07/10/20 20:19 Temperature 36.6 C Pulse Rate 74 68 64 Respiratory Rate 32 H 32 H 32 H Blood Pressure 74/56 L 83/60 L Pulse Oximetry 93 97 96 07/10/20 20:30 07/10/20 21:00 07/10/20 21:05 Temperature Pulse Rate 64 62 72 Respiratory Rate 32 H 32 H 32 H Blood Pressure 79/56 L 75/57 L Pulse Oximetry 96 96 07/10/20 21:30 07/10/20 22:00 07/10/20 22:12 Temperature Pulse Rate 62 60 64 Respiratory Rate 32 H 32 H Blood Pressure 78/56 L 76/54 L 76/54 L Pulse Oximetry 96 96 07/10/20 22:17 07/10/20 22:20 07/10/20 22:25 Temperature Pulse Rate 60 60 62 Respiratory Rate 32 H 32 H 32 H Blood Pressure 90/52 L 139/88 Pulse Oximetry 96 96 07/10/20 22:30 07/10/20 23:00 07/10/20 23:30 Temperature Pulse Rate 64 64 62 Respiratory Rate 32 H 32 H 32 H Blood Pressure 117/79 119/77 115/75 Pulse Oximetry 96 96 96 07/11/20 00:00 07/11/20 00:30 07/11/20 00:36 Temperature 36.2 C L Pulse Rate 62 64 66 Respiratory Rate 32 H 32 H 32 H Blood Pressure 111/71 106/72 Pulse Oximetry 96 96 07/11/20 00:58 07/11/20 01:00 07/11/20 01:30 Temperature Pulse Rate 63 62 68 Respiratory Rate 32 H 32 H 32 H Blood Pressure 102/68 104/69 Pulse Oximetry 96 96 96 07/11/20 02:00 07/11/20 02:30 07/11/20 03:00 Temperature
[2020-07-11] MEDS: EPOPROSTENOL SODIUM 0.5 MG VIAL INHALATION (20:13)
[2020-07-11 20:34] LABS: Alveolar/Arterial O2 Gradient 392.8 mmHg; Base Excess ABG -2.7 mEq/l (+/-2.0); Fractional Inspired Oxygen 80 %; HCO3 ABG 24.1 mEq/l (22.0-26.0); Oxygen Content ABG 20.6 %vol (16.0-22.0); Oxygen Saturation ABG 98.2 % (95.0-100.0); Oxyhemoglobin 97.1 % THb (90.0-100.0); PCO2 ABG 49.3 mmHg (35.0-45.0); PO2 ABG 125.8 mmHg (80.0-100.0); PO2 FiO2 Ratio Arterial Blood 1.57 %; pH ABG 7.307 (7.350-7.450)
[2020-07-11 20:35] LABS: Site Drawn LEFT RADIAL
[2020-07-11 20:36] LABS: Arterial Blood Gas Vent Mode CMV; Arterial Blood Gas Ventilator rate 32 /MIN; Device VENTILATOR; Modified Allen's Test Pass
[2020-07-11 20:37] LABS: Arterial Blood Gas PEEP 10 cmH2O; Arterial Blood Gas Tidal Volume 420 ml
[2020-07-12] VITALS (43 sets, daily range): BP systolic 99–130; BP diastolic 66–88; PULSE 54–79; RESP 19–36; TEMP 36.2–36.8; O2SAT 91–96
[2020-07-12] MEDS: DEXAMETHASONE SOD PHOS INJ 4 MG/ML VIAL 6 MG IV PUSH ×5 (00:30→23:03)
[2020-07-12] MEDS: METOCLOPRAMIDE HCL INJ 10 MG/2 ML VIAL 5 MG IV PUSH ×5 (00:30→23:04)
[2020-07-12] MEDS: EPOPROSTENOL SODIUM 0.5 MG VIAL INHALATION ×2 (03:02→09:11)
[2020-07-12 04:47] LABS: Hematocrit 41.5 % (42.0-52.0); Hemoglobin 13.4 g/dL (14.0-18.0); Mean Corpuscular HGB Conc 32.3 g/dl (32-36); Mean Corpuscular Hemoglobin 31.5 pg (26-34); Mean Corpuscular Volume 97.4 fl (80-100); Mean Platelet Volume 10.6 fl (7.4-10.4); Platelet Count Result 245 k/mm3 (150-375); Red Blood Count 4.26 M/mm3 (4.6-6.20); Red Cell Distribution Width 12.5 % (11.5-14.5); White Blood Count 16.6 K/mm3 (4.5-10.0)
[2020-07-12 04:58] LABS: Alanine Aminotransferase 40 U/L (4-50); Albumin Level 2.8 g/dL (3.5-5.1); Alkaline Phosphatase 77 U/L (38-126); Anion Gap 3 mmol/L (8-16); Aspartate Amino Transferase 49 U/L (17-59); Bilirubin,Total 0.6 mg/dL (0.2-1.3); Blood Urea Nitrogen 82 mg/dL (9-20); Calcium 8.3 mg/dL (8.4-10.2); Carbon Dioxide 28 mmol/L (22-30); Chloride 104 mmol/L (98-107); Estimated CRCL calculation 83 ml/min; Estimated Glomerular Filt Rate > 60; Glucose 219 mg/dL (75-110); Magnesium 3.8 mg/dL (1.6-2.3); Phosphorus 3.4 mg/dL (2.5-4.5); Potassium 5.3 mmol/L (3.4-5.0); Sodium 135 mmol/L (137-145)
[2020-07-12] MEDS: CENTRAL LINE FLUSH 10 ML IV PUSH ×3 (05:11→20:48)
[2020-07-12 05:39] LABS: Base Excess ABG -2.2 mEq/l (+/-2.0); Fractional Inspired Oxygen 80 %; Oxygen Content ABG 19.7 %vol (16.0-22.0); Oxygen Saturation ABG 98.3 % (95.0-100.0); Oxyhemoglobin 97.5 % THb (90.0-100.0); PCO2 ABG 52.3 mmHg (35.0-45.0); PO2 ABG 130.5 mmHg (80.0-100.0); PO2 FiO2 Ratio Arterial Blood 1.63 %; Total Hemoglobin 14.2 g/dL (12.0-18.0); pH ABG 7.297 (7.350-7.450)
[2020-07-12 05:40] LABS: Device VENTILATOR; Modified Allen's Test Pass; Site Drawn LEFT RADIAL
[2020-07-12 05:41] LABS: Arterial Blood Gas PEEP 10 cmH2O; Arterial Blood Gas Tidal Volume 420 ml; Arterial Blood Gas Vent Mode CMV; Arterial Blood Gas Ventilator rate 32 /MIN
[2020-07-12] MEDS: PROPOFOL IV EMULSION 100 ML 3.4 MG IV CONT (06:49)
[2020-07-12] MEDS: CHOLECALCIFEROL 1,000 UNITS TABLET 5000 UNITS PO (07:52)
[2020-07-12] MEDS: ENOXAPARIN 40 MG/0.4 ML SYRINGE SUB-Q (07:53)
[2020-07-12] MEDS: ASCORBIC ACID 500 MG TABLET PO (07:53)
[2020-07-12] MEDS: ZINC SULFATE 220 MG CAPSULE PO (07:53)
[2020-07-12] MEDS: PANTOPRAZOLE SODIUM IV 40 MG VIAL IV PUSH (07:54)
--- NOTE | 2020-07-12 10:36 | PM.PNGS ---
Progress Note: A&P Assessment and Plan (1) Acute pneumothorax: Code(s): J93.83 - Other pneumothorax Status: Acute Assessment and Plan: chest tube working well. No air leak. Lung fully inflated. Continue to follow. (2) Ventilator induced barotrauma: Code(s): T88.9XXA - Complication of surgical and medical care, unspecified, initial encounter Status: Acute (3) COVID-19: Code(s): U07.1 - COVID-19 Status: Acute (4) Pneumonia due to 2019 novel coronavirus: Onset Date: ~06/2020 Code(s): U07.1 - COVID-19; J12.89 - Other viral pneumonia Status: Acute (5) Acute respiratory failure with hypoxia: Code(s): J96.01 - Acute respiratory failure with hypoxia Status: Acute Subjective Subjective Date/Time Seen: 07/12/20 10:36 Patient reports: other ( Intubated and sedated on ventilator) Review of Systems Review of Systems: ROS unobtainable: Yes unobtainable due to endotracheal tube Exam Chest: Chest palpation & inspection: abnormal inspection of the chest ( right chest tube dressing dry and intact, no air leak) Resp: Effort & Inspection: symmetric chest movement and other ( on mechanical ventilator, no air leak per chest to) Auscultation: rales, rhonchi and diminished lung sounds Objective Data Vital Signs Vital Signs: Vital Signs - 24 hr 07/11/20 10:48 07/11/20 11:57 07/11/20 12:00 Temperature Pulse Rate 62 62 61 Respiratory Rate 32 H 32 H 32 H Blood Pressure 112/71 Pulse Oximetry 97 07/11/20 12:01 07/11/20 14:00 07/11/20 14:27 Temperature Pulse Rate 61 63 63 Respiratory Rate 32 H 32 H Blood Pressure 112/74 Pulse Oximetry 97 95 96 07/11/20 16:00 07/11/20 16:21 07/11/20 16:38 Temperature 36.6 C Pulse Rate 59 L 56 L 66 Respiratory Rate 30 H 32 H Blood Pressure 87/55 L Pulse Oximetry 96 96 07/11/20 17:03 07/11/20 17:04 07/11/20 17:12 Temperature Pulse Rate 54 L 56 L 54 L Respiratory Rate 32 H 32 H Blood Pressure 120/78 Pulse Oximetry 07/11/20 17:14 07/11/20 17:15 07/11/20 17:17 Temperature Pulse Rate 56 L 55 L 55 L Respiratory Rate 32 H 32 H Blood Pressure 120/78 Pulse Oximetry 07/11/20 17:42 07/11/20 18:00 07/11/20 18:04 Temperature Pulse Rate 51 L 58 L 59 L Respiratory Rate 33 H 32 H 32 H Blood Pressure 119/76 Pulse Oximetry 95 95 07/11/20 19:59 07/11/20 20:00 07/11/20 20:14 Temperature 36.5 C Pulse Rate 58 L 58 L 57 L Respiratory Rate 32 H 32 H 32 H Blood Pressure 123/78 123/78 Pulse Oximetry 96 96 07/11/20 21:00 07/11/20 22:00 07/11/20 22:08 Temperature Pulse Rate 56 L 56 L 57 L Respiratory Rate 32 H 32 H 32 H Blood Pressure 117/74 125/77 Pulse Oximetry 96 96 96 07/11/20 23:00 07/11/20 23:57 07/12/20 00:00 Temperature 36.2 C L Pulse Rate 54 L 51 L 54 L Respiratory Rate 32 H 33 H 32 H Blood Pressure 118/74 120/70 Pulse Oximetry 96 96 07/12/20 00:10 07/12/20 01:00 07/12/20 01:51 Temperature Pulse Rate 62 54 L 54 L Respiratory Rate 32 H 32 H 32 H Blood Pressure 119/79 121/77 Pulse Oximetry 96 96 96 07/12/20 02:10 07/12/20 03:00 07/12/20 04:00 Temperature 36.5 C Pulse Rate 58 L 56 L 56 L Respiratory Rate 32 H 32 H 32 H Blood Pressure 117/79 119/76 Pulse Oximetry 96 96 96 07/12/20 04:01 07/12/20 04:10 07/12/20 05:00 Temperature Pulse Rate 58 L 59 L 56 L Respiratory Rate 34 H 34 H 32 H Blood Pressure 121/73 Pulse Oximetry 93 96 07/12/20 05:55 07/12/20 06:00 07/12/20 06:49 Temperature Pulse Rate 56 L 59 L 58 L Respiratory Rate 32 H 34 H 34 H Blood Pressure 126/77 Pulse Oximetry 96 93 07/12/20 07:35 07/12/20 08:00 07/12/20 09:11 Temperature 36.5 C Pulse Rate 60 59 L 63 Respiratory Rate 34 H 24 H 32 H Blood Pressure 125/77 Pulse Oximetry 95 95 96 07/12/20 09:39 07/12/20 10:00 Temperature Pulse Rate 63 61 Respiratory Rate 32 H Blood Pressure 119/75 Pulse Oximet
--- NOTE | 2020-07-12 11:07 | PM.IMPN ---
Progress Note: A&P Assessment and Plan (1) Gastroesophageal reflux: Code(s): K21.9 - Gastro-esophageal reflux disease without esophagitis Status: Acute Assessment and Plan: Protonix (2) Pneumonia due to COVID-19 virus: Code(s): U07.1 - COVID-19; J12.89 - Other viral pneumonia Status: Acute (3) Acute respiratory failure with hypoxia: Code(s): J96.01 - Acute respiratory failure with hypoxia Status: Acute (4) Acute pneumothorax: Code(s): J93.83 - Other pneumothorax Status: Acute Additional Plan # COVID-19 pneumonia # acute hypoxic respiratory failure -diagnosed around 06/25, admitted 06/27 - completed remdesivir/dexamethasone, restarted dexamethasone 07/07 - supplements: zinc, vitamin-C, vitamin-D - Albuterol nebulizer scheduled - Tylenol for fever - will trend inflammatory markers Q 48 hours - convalescent plasma ordered 06/30/2020 - intubated 07/10- - ventilator CMV for 240/32/80%/peep 10 - stopped Flolan - sedation: Fentanyl and Versed - starting tube feeds on 07/11 - PRN levophed for hypotension # right-sided spontaneous pneumothorax -status post chest tube right chest -spontaneous pneumothorax 07/10/2020 which was emergently needle decompressed, intubated, and chest tube placed #other conditions -GERD: Protonix Diet: tube feeds DVT prophylaxis: Lovenox 40mg BID for covid-19 GI prophylaxis: Protonix IV Code status: Full code Disposition: Intensive care unit, prognosis guarded Social: [phone] Subjective Date/time seen: 07/12/20 11:07 Patient examined. Stable, oxygen saturation 96% with FiO2 80%, peep 10. Chest tube in place stable. Tube feeds started last night. Patient is doing well and will, Flolan. Review of Systems Review of Systems: ROS unobtainable: Yes unobtainable due to endotracheal tube Exam Narrative: Exam Narrative: - GENERAL: Male intubated and sedated - HENT: Intubated with OG tube, neck supple - LUNGS: Diminished lung sounds, breathing with the ventilator, chest tube right chest - CARDIOVASCULAR: Regular rate and rhythm. - ABDOMEN: Soft, non-tender and non-distended. - EXTREMITIES: No edema. Peripheral pulses 2+. - NEUROLOGIC: Unable to evaluate intubated, sedated - PSYCHIATRIC: Unable to evaluate intubated, sedated Objective Data Vital Signs Vital Signs: Vital Signs - 24 hr 07/11/20 11:57 07/11/20 12:00 07/11/20 12:01 Temperature Pulse Rate 62 61 61 Respiratory Rate 32 H 32 H Blood Pressure 112/71 Pulse Oximetry 97 97 07/11/20 14:00 07/11/20 14:27 07/11/20 16:00 Temperature 36.6 C Pulse Rate 63 63 59 L Respiratory Rate 32 H 32 H 30 H Blood Pressure 112/74 87/55 L Pulse Oximetry 95 96 96 07/11/20 16:21 07/11/20 16:38 07/11/20 17:03 Temperature Pulse Rate 56 L 66 54 L Respiratory Rate 32 H Blood Pressure 120/78 Pulse Oximetry 96 07/11/20 17:04 07/11/20 17:12 07/11/20 17:14 Temperature Pulse Rate 56 L 54 L 56 L Respiratory Rate 32 H 32 H Blood Pressure 120/78 Pulse Oximetry 07/11/20 17:15 07/11/20 17:17 07/11/20 17:42 Temperature Pulse Rate 55 L 55 L 51 L Respiratory Rate 32 H 32 H 33 H Blood Pressure Pulse Oximetry 07/11/20 18:00 07/11/20 18:04 07/11/20 19:59 Temperature 36.5 C Pulse Rate 58 L 59 L 58 L Respiratory Rate 32 H 32 H 32 H Blood Pressure 119/76 123/78 Pulse Oximetry 95 95 96 07/11/20 20:00 07/11/20 20:14 07/11/20 21:00 Temperature Pulse Rate 58 L 57 L 56 L Respiratory Rate 32 H 32 H 32 H Blood Pressure 123/78 117/74 Pulse Oximetry 96 96 07/11/20 22:00 07/11/20 22:08 07/11/20 23:00 Temperature Pulse Rate 56 L 57 L 54 L Respiratory Rate 32 H 32 H 32 H Blood Pressure 125/77 118/74 Pulse Oximetry 96 96 96 07/11/20 23:57 07/12/20 00:00 07/12/20 00:10 Temperature 36.2 C L Pulse Rate 51 L 54 L 62 Respiratory Rate 33 H 32 H 32 H Blood Pressure 120/70 Pulse Oximetry 96 96
[2020-07-12] MEDS: FENTANYL 2,500MCG/NS250ML(*CRX 2,500 MCG/250 ML BAG 15 MCG IV CONT (11:30)
[2020-07-12] MEDS: NOREPINEPHRINE 8 MG/D5W 250 ML 8 MG/250 ML BAG 11.25 MG IV CONT (11:34)
--- NOTE | 2020-07-12 11:45 | PCDIET ---
Nutrition Follow-Up Complete: Goal: Total intake will meet estimated nutrition needs. Pt current nutrition is Vital 1.2 at 50ml/hr Nutrition recommendation: agree Last recorded weight is 94.5 kg, steady from admit wt of 95.5kg Bowel Motility: today Labs Reviewed:Hgb 13.4, Hct 41.5, Albumin 2.8, Na 135, Mg 3.8, Glucose 219 Meds Noted: Vitamin D, Protonix, Albumin, Vitamin C, Decadron, Versed, Reglan, Fentanyl, Levophed, Zofran, Zinc Additional Notes: Pt started on Vital 1.2 at 50ml/hr providing 1320 kcals, 83g protein, and 892ml of free water, meeting 100% of needs. Pt is tolerating tube feedings. Pt is vent day three. Propofol running at 3.4ml/hr providing an additional 89kcals. Plans to decrease propofol today. Pt with chest tube due to pneumothorax. Pt has completed anti-viral protocol. We will continue to follow daily in ICU and reassess every T/F.
[2020-07-12] MEDS: EPOPROSTENOL SODIUM 0.5 MG VIAL 0.25 MG INHALATION (12:39)
--- NOTE | 2020-07-12 12:55 | WPDINTPN ---
Progress Note: A&P Assessment and Plan (1) Acute respiratory failure with hypoxia: Code(s): J96.01 - Acute respiratory failure with hypoxia Status: Acute Assessment and Plan: Acute hypoxic respiratory failure secondary to COVID-19 pneumonia Intubated on 07/10 after he was on BiPAP alternating with high-flow oxygen for few days but failed and had to be intubated for impending respiratory failure. - ABGs and chest x-rays reviewed. Chest x-ray showing bilateral airspace disease with some residual right-sided pneumothorax. - CMV 420/32/80/PEEP 10. Low tidal volume strategies been employed. Wean FiO2 and PEEP if tolerated. - Flolan can be weaned off as his oxygenation is improving. Attempt will be made to completely wean Flolan today. - Right chest tube in placed for spontaneous pneumothorax from barotrauma. Chest tube without any significant drainage. Chest tube is under wall suction. Surgery will continue to follow and chest 2 care as per surgery service. (2) Pneumonia due to COVID-19 virus: Code(s): U07.1 - COVID-19; J12.89 - Other viral pneumonia Status: Acute Assessment and Plan: SARS-CoV-2 PCR positive -patient has completed a course of dexamethasone and Remdesivir -started patient on a 2nd course of dexamethasone which was initiated on 07/07/2020 -continue zinc, vitamin-D, vitamin-C I will discontinue cefepime which he was on since 07/03. Cultures remained negative. (3) Gastroesophageal reflux: Code(s): K21.9 - Gastro-esophageal reflux disease without esophagitis Status: Acute Assessment and Plan: Continue Protonix IV (4) DVT prophylaxis: Code(s): Z29.9 - Encounter for prophylactic measures, unspecified Status: Acute Assessment and Plan: Lovenox 40 mg SQ q.12 hours Additional Plan DVT prophylaxis with subcu Lovenox GI prophylaxis with IV pantoprazole Code status: Full code Critical care time spent: 35 minutes Due to a high probability of clinically significant, life threatening deterioration, the patient required my highest level of preparedness to intervene emergently and I personally spent this critical care time directly and personally managing the patient. This critical care time included obtaining a history; examining the patient; pulse oximetry; ordering and review of studies; arranging urgent treatment with development of a management plan; evaluation of patient's response to treatment; frequent reassessment; and discussions with other providers. It was exclusive of separately billable procedures and treating other patients and teaching time. Please see Assessment and Plan section and the rest of the note for further information on patient assessment and treatment Subjective Date/time seen: 07/12/20 12:55 He continued to be on mechanical ventilation. He is on 80% FiO2 and 10 of PEEP. He is currently on Flolan which is being weaned off. His urine output is adequate. His heart rate is mostly in 50s. ABG showing permissive hypercapnia. Chest tube in place and under wall suction. Chest tube with minimal residual pneumothorax. He is sedated with propofol fentanyl and Versed but propofol is being weaned off. Interval history: Developed right pneumothorax with worsening respiratory failure yesterday and was intubated, right chest tube placed. Review of Systems Review of Systems: ROS unobtainable: Yes unobtainable due to endotracheal tube Exam Narrative: Exam Narrative: Intubated and sedated HENMT: General nose exam: Normal external nose present (nasal cyanosis present ) Other: ETT in place Resp: Other: Coarse breath sounds on bases Cardio: Rhythm: regular rhythm Heart sounds: S1 normal heart sound present and S2 normal heart sound present GI: GI Palp: Yes Soft to palpation : Other: Amanda catheter in place Neuro: Other: Patient intubated and sedated Psych: Other: Unable to assess at this time Obje
[2020-07-12] MEDS: IPRATROPIUM BR 0.02% INH SOLN 0.5 MG/2.5 ML VIAL INHALATION (21:20)
[2020-07-13] VITALS (33 sets, daily range): BP systolic 93–114; BP diastolic 53–78; PULSE 66–88; RESP 20–39; TEMP 36.8–37.7; O2SAT 88–98
[2020-07-13] MEDS: IPRATROPIUM BR 0.02% INH SOLN 0.5 MG/2.5 ML VIAL INHALATION ×4 (03:03→20:44)
[2020-07-13] MEDS: CENTRAL LINE FLUSH 10 ML IV PUSH ×3 (04:45→20:08)
[2020-07-13] MEDS: METOCLOPRAMIDE HCL INJ 10 MG/2 ML VIAL 5 MG IV PUSH ×3 (04:46→18:20)
[2020-07-13] MEDS: DEXAMETHASONE SOD PHOS INJ 4 MG/ML VIAL 6 MG IV PUSH ×3 (04:46→18:20)
[2020-07-13] MEDS: FENTANYL 2,500MCG/NS250ML(*CRX 2,500 MCG/250 ML BAG 15 MCG IV CONT ×2 (04:49→21:46)
[2020-07-13 05:25] LABS: Hematocrit 38.1 % (42.0-52.0); Hemoglobin 12.4 g/dL (14.0-18.0); Mean Corpuscular HGB Conc 32.5 g/dl (32-36); Mean Corpuscular Hemoglobin 31.7 pg (26-34); Mean Corpuscular Volume 97.4 fl (80-100); Mean Platelet Volume 10.9 fl (7.4-10.4); Platelet Count Result 135 k/mm3 (150-375); Red Blood Count 3.91 M/mm3 (4.6-6.20); Red Cell Distribution Width 12.3 % (11.5-14.5); White Blood Count 13.9 K/mm3 (4.5-10.0)
[2020-07-13 05:49] LABS: Anion Gap 1 mmol/L (8-16); Blood Urea Nitrogen 92 mg/dL (9-20); CRP 4.5 mg/dL (<1.0); Calcium 9.2 mg/dL (8.4-10.2); Carbon Dioxide 33 mmol/L (22-30); Chloride 106 mmol/L (98-107); Estimated CRCL calculation 69 ml/min; Estimated Glomerular Filt Rate > 60; Glucose 163 mg/dL (75-110); Lactate Dehydrogenase 864 U/L (313-618); Magnesium 4.3 mg/dL (1.6-2.3); Phosphorus 2.4 mg/dL (2.5-4.5); Potassium 5.4 mmol/L (3.4-5.0); Sodium 140 mmol/L (137-145)
[2020-07-13 06:05] LABS: D Dimer 2.17 ug/mL (<0.48)
[2020-07-13 06:43] LABS: Alveolar/Arterial O2 Gradient 528.4 mmHg; Carboxyhemoglobin 0.3 % THb (0-2.0); Fractional Inspired Oxygen 90 %; HCO3 ABG 26.9 mEq/l (22.0-26.0); Methemoglobin ABG 0.3 %THb (0-1.5); Oxygen Content ABG 19.8 %vol (16.0-22.0); Oxygen Saturation ABG 92.1 % (95.0-100.0); Oxyhemoglobin 92.2 % THb (90.0-100.0); PCO2 ABG 47.1 mmHg (35.0-45.0); PO2 FiO2 Ratio Arterial Blood 0.72 %; Reduced Hemoglobin 7.2 %THb (0-5.0); Total Hemoglobin 15.3 g/dL (12.0-18.0); pH ABG 7.374 (7.350-7.450)
[2020-07-13 06:44] LABS: Device VENTILATOR; Modified Allen's Test Pass; Site Drawn RIGHT RADIAL
[2020-07-13 06:45] LABS: Arterial Blood Gas PEEP 10 cmH2O; Arterial Blood Gas Tidal Volume 420 ml; Arterial Blood Gas Vent Mode CMV; Arterial Blood Gas Ventilator rate 32 /MIN
--- NOTE | 2020-07-13 07:53 | PM.IMPN ---
Progress Note: A&P Assessment and Plan (1) Gastroesophageal reflux: Code(s): K21.9 - Gastro-esophageal reflux disease without esophagitis Status: Acute Assessment and Plan: Protonix (2) Pneumonia due to COVID-19 virus: Code(s): U07.1 - COVID-19; J12.89 - Other viral pneumonia Status: Acute (3) Acute respiratory failure with hypoxia: Code(s): J96.01 - Acute respiratory failure with hypoxia Status: Acute (4) Acute pneumothorax: Code(s): J93.83 - Other pneumothorax Status: Acute Additional Plan # COVID-19 pneumonia # acute hypoxic respiratory failure - diagnosed around 06/25, admitted 06/27 - completed remdesivir/dexamethasone, restarted dexamethasone 07/07 - supplements: zinc, vitamin-C, vitamin-D - Albuterol nebulizer scheduled - Tylenol for fever - will trend inflammatory markers Q 48 hours - convalescent plasma ordered 06/30/2020 - intubated 07/10- - ventilator CMV for 240/32/00%/peep 8 - sedation: Fentanyl and Versed - PRN levophed for hypotension # elevated BUN -likely secondary to steroids his is no sign of GI bleed # right-sided spontaneous pneumothorax -status post chest tube right chest -spontaneous pneumothorax 07/10/2020 which was emergently needle decompressed, intubated, and chest tube placed #other conditions -GERD: Protonix Diet: tube feeds from 07/11- DVT prophylaxis: Lovenox 40mg BID for covid-19 GI prophylaxis: Protonix IV Code status: Full code Disposition: Intensive care unit Social: [phone] Subjective Date/time seen: 07/13/20 07:53 Patient examined. Patient is stable weaning down on PEEP, overnight he had to go up on FiO2 from 80 to 90%. Elevated BUN secondary to steroids. Patient stable. Review of Systems Review of Systems: ROS unobtainable: Yes unobtainable due to endotracheal tube Exam Narrative: Exam Narrative: - GENERAL: Male intubated and sedated - HENT: Intubated with OG tube, neck supple - LUNGS: Diminished lung sounds, breathing with the ventilator, chest tube right chest with no air leak - CARDIOVASCULAR: Regular rate and rhythm. - ABDOMEN: Soft, non-tender and non-distended. - EXTREMITIES: No edema. Peripheral pulses 2+. - NEUROLOGIC: Unable to evaluate intubated, sedated - PSYCHIATRIC: Unable to evaluate intubated, sedated Objective Data Vital Signs Vital Signs: Vital Signs - 24 hr 07/12/20 08:00 07/12/20 09:11 07/12/20 09:39 Temperature 36.5 C Pulse Rate 59 L 63 63 Respiratory Rate 24 H 32 H Blood Pressure 125/77 Pulse Oximetry 95 96 96 07/12/20 10:00 07/12/20 11:16 07/12/20 11:30 Temperature Pulse Rate 61 62 57 L Respiratory Rate 32 H 34 H 24 H Blood Pressure 119/75 Pulse Oximetry 95 95 07/12/20 11:33 07/12/20 11:34 07/12/20 12:00 Temperature Pulse Rate 56 L 56 L 60 Respiratory Rate 32 H 32 H Blood Pressure 130/80 126/88 Pulse Oximetry 95 07/12/20 12:35 07/12/20 13:43 07/12/20 14:00 Temperature Pulse Rate 60 61 73 Respiratory Rate 32 H 32 H 32 H Blood Pressure 99/67 L Pulse Oximetry 95 91 07/12/20 14:20 07/12/20 16:00 07/12/20 16:45 Temperature Pulse Rate 70 69 68 Respiratory Rate 34 H 20 Blood Pressure 106/70 Pulse Oximetry 95 93 92 07/12/20 17:07 07/12/20 17:08 07/12/20 17:09 Temperature Pulse Rate 71 79 70 Respiratory Rate 32 H 32 H 32 H Blood Pressure Pulse Oximetry 07/12/20 18:00 07/12/20 20:00 07/12/20 20:38 Temperature 36.8 C Pulse Rate 73 71 73 Respiratory Rate 19 33 H Blood Pressure 106/66 106/71 Pulse Oximetry 94 93 07/12/20 20:49 07/12/20 20:50 07/12/20 21:20 Temperature Pulse Rate 77 76 71 Respiratory Rate 34 H 34 H 35 H Blood Pressure Pulse Oximetry 07/12/20 21:21 07/12/20 22:00 07/12/20 23:09 Temperature Pulse Rate 71 71 73 Respiratory Rate 35 H 36 H Blood Pressure 100/67 Pulse Oximetry 91 92 07/12/20 23:31 07/13/20 00:00 07/13/20 02:00
[2020-07-13] MEDS: ZINC SULFATE 220 MG CAPSULE PO (07:59)
[2020-07-13] MEDS: CHOLECALCIFEROL 1,000 UNITS TABLET 5000 UNITS PO (07:59)
[2020-07-13] MEDS: ENOXAPARIN 40 MG/0.4 ML SYRINGE SUB-Q (07:59)
[2020-07-13] MEDS: ASCORBIC ACID 500 MG TABLET PO (08:00)
[2020-07-13] MEDS: PANTOPRAZOLE SODIUM IV 40 MG VIAL IV PUSH (08:00)
[2020-07-13] MEDS: ALBUTEROL SULFATE NEB 2.5 MG/0.5 ML INH 10 MG INHALATION (08:23)
[2020-07-13] MEDS: DEXTROSE 50% 25 GM/50 ML SYRINGE IV PUSH (10:29)
[2020-07-13] MEDS: SODIUM POLYSTYRENE SULFONONATE 15 GM/60 ML BTL PO (10:29)
[2020-07-13] MEDS: INSULIN HUMAN REGULAR (*BKC) 100 UNITS/ML 10 UNITS IV PUSH (10:35)
[2020-07-13] MEDS: SODIUM CHLORIDE 0.9% IV 1,000 ML 100 ML IV CONT (10:36)
[2020-07-13 11:56] LABS: Glucose Point of Care 181 (65-105)
--- NOTE | 2020-07-13 13:02 | WPDINTPN ---
Progress Note: A&P Assessment and Plan (1) Acute respiratory failure with hypoxia: Code(s): J96.01 - Acute respiratory failure with hypoxia Status: Acute Assessment and Plan: Acute hypoxic respiratory failure secondary to COVID-19 pneumonia Intubated on 07/10 after he was on BiPAP alternating with high-flow oxygen for few days but failed and had to be intubated for impending respiratory failure. - ABGs and chest x-rays reviewed. Chest x-ray Diffuse patchy bilateral pulmonary interstitial infiltrates persist, relatively stable since 07/12/2020. Slight residual right apical pneumothorax; right thoracostomy tube - CMV 420/32/80/PEEP 8. Low tidal volume strategies been employed. Wean FiO2 and PEEP if tolerated, maintain O2 sats greater than 92% - Flolan can be weaned off as his oxygenation is improving. Attempt will be made to completely wean Flolan today. - Right chest tube in placed for spontaneous pneumothorax from barotrauma. Chest tube without any significant drainage. Chest tube is under wall suction. Surgery will continue to follow and chest tube care as per surgery service. (2) Pneumonia due to COVID-19 virus: Code(s): U07.1 - COVID-19; J12.89 - Other viral pneumonia Status: Acute Assessment and Plan: SARS-CoV-2 PCR positive -patient has completed a course of dexamethasone and Remdesivir -started patient on a 2nd course of dexamethasone which was initiated on 07/07/2020 -continue zinc, vitamin-D, vitamin-C I will discontinue cefepime which he was on since 07/03. Cultures remained negative. (3) Gastroesophageal reflux: Code(s): K21.9 - Gastro-esophageal reflux disease without esophagitis Status: Acute Assessment and Plan: Continue Protonix IV (4) DVT prophylaxis: Code(s): Z29.9 - Encounter for prophylactic measures, unspecified Status: Acute Assessment and Plan: Lovenox 40 mg SQ q.12 hours (5) Dietary counseling and surveillance: Code(s): Z71.3 - Dietary counseling and surveillance Status: Acute Assessment and Plan: Tolerating tube feeds, at goal Additional Plan Discussed with Temi, updated with patient's condition and plan of care. Answered all questions Code status: Full code Critical care time spent: 33 minutes Due to a high probability of clinically significant, life threatening deterioration, the patient required my highest level of preparedness to intervene emergently and I personally spent this critical care time directly and personally managing the patient. This critical care time included obtaining a history; examining the patient; pulse oximetry; ordering and review of studies; arranging urgent treatment with development of a management plan; evaluation of patient's response to treatment; frequent reassessment; and discussions with other providers. It was exclusive of separately billable procedures and treating other patients and teaching time. Please see Assessment and Plan section and the rest of the note for further information on patient assessment and treatment Subjective Date/time seen: 07/13/20 13:02 Interval history: Interval history: Reason for consult: Acute hypoxic respiratory failure, COVID-19 pneumonia, fevers Intubated on 07/10/2020, chest tube placed on 07/10/2020 07/13/2020: 90% FIO2 AND PEEP OF 8. Flolan was weaned off on 07/12/2020. Sedated with fentanyl, Versed. Off propofol infusion. Patient is afebrile, urine output has been adequate patient is hyperkalemic with elevated BUN. Chest tube in place and to wall suction Review of Systems Review of Systems: ROS unobtainable: Yes unobtainable due to endotracheal tube Exam Const: General: healthy appearing, no acute distress, alert, awake, Physically active and acute distress moderate and respiratory HENMT: General nose exam: Normal external nose present (nasal cyanosis present ) Other: ETT in place Eyes: Sclera: sclerae n
--- NOTE | 2020-07-13 13:27 | PM.CNNEP ---
Assessment and Plan Assessment and plan (1) Elevated BUN: Code(s): R79.9 - Abnormal finding of blood chemistry, unspecified Status: Acute Assessment and Plan: Danny has an elevated BUN and normal creatinine. This could be from several causes. Comment things are causes are tetracyclines administration, TPN, protein diet, and GI bleeding but none of these are in play so far. He is on steroids which can cause the BUN to rise because of the catabolic effect. He also was very ill with COVID so could have a high catabolic rate from this as well. He could be a bit pre renal which would extension wait any of the former affect causing the BUN to rise out of proportion to the creatinine. And finally poor muscle mass could prevent the creatinine from rising but the BUN would rise because of the nutritional intake. I do not think this applies either. At this point I will get some urine electrolytes, 24hour urine urea nitrogen, stool guaiac. I agree with giving fluids if it is okay from the COVID standpoint. (2) Pneumonia due to COVID-19 virus: Code(s): U07.1 - COVID-19; J12.89 - Other viral pneumonia Status: Acute Assessment and Plan: The patient is on getting supportive care, Dexamethaso remdesivir (3) Ventilator induced barotrauma: Code(s): T88.9XXA - Complication of surgical and medical care, unspecified, initial encounter Status: Acute Assessment and Plan: He had to have a chest tube placed.. (4) Gastroesophageal reflux: Code(s): K21.9 - Gastro-esophageal reflux disease without esophagitis Status: Acute Assessment and Plan: He is on a PPI History of Present Illness Reason for Consult Consult date: 07/13/20 Chief Complaint Chief complaint: COVID, Hypoxia, right pneumothorax History of Present Illness Narrative: Danny is a very pleasant 54-year-old gentleman who has GERD, Marques's esophagus, former smoker, who was found to have COVID at home. He was checking his O2 sats at home and these dropped so he went to the ER on June 27. He has been in the hospital ever since. He was admitted and isolated given supportive care. His oxygenation worsened in ended up on BiPAP. He was moved to the ICU and Dr. Parikh started seeing him on 07/06. His oxygenation continued to worsen on the he had to be intubated. Now he is on the ventilator with high support. He is on Flolan. He had barotrauma and so chest tube was placed. He has been getting REM does severe and Dexamethasone to treat his COVID. He had 1 course of dexamethasone early on and then a 2nd course was initiated on the . His creatinine has been stable but his BUN has been rising so renal consultation was requested. There has been no report of GI bleeding. No tetracycline has been administered. He has not been getting any TPN. He has been getting some tube feedings but at a slow rate since yesterday. He has been getting some IV fluids to see if that would help his BUN. Review of Systems Review of Systems: ROS unobtainable: Yes unobtainable due to medical condition PMFSH Past Medical History Medical History Barretts esophagus GERD (gastroesophageal reflux disease) Surgical History Surgical History H/O inguinal hernia repair Family History Family History Mother Colon cancer Diabetes mellitus Father Colon cancer Social History Social History Smoking packs per day: 1 Smoking cigarettes per day: 20.0 Years smoked: 20 Smoking pack-years: 20.00 Smoking status: Former smoker Tobacco type: cigarettes Alcohol intake: current Drinks per week: 14 Substance use: never Living arrangements: with family Occupation/Education: occupation [employer]
[2020-07-13 14:13] LABS: Creatine Kinase 254 U/L (55-170)
[2020-07-13 14:27] LABS: Creatinine Urine 97.6 mg/dL; Total Protein Urine Random 22 mg/dL
[2020-07-13 14:29] LABS: Sodium Urine Random < 5 meq/L
[2020-07-13] MEDS: SODIUM CHLORIDE 0.9% IV 1,000 ML 100 ML (16:56)
[2020-07-14] VITALS (65 sets, daily range): BP systolic 73–143; BP diastolic 45–94; PULSE 77–151; RESP 13–43; TEMP 37.6–38.6; O2SAT 80–96
[2020-07-14] MEDS: DEXAMETHASONE SOD PHOS INJ 4 MG/ML VIAL 6 MG IV PUSH ×4 (00:37→19:41)
[2020-07-14] MEDS: METOCLOPRAMIDE HCL INJ 10 MG/2 ML VIAL 5 MG IV PUSH ×4 (00:37→19:42)
[2020-07-14] MEDS: PROPOFOL IV EMULSION 100 ML 19.85 MG IV CONT (02:17)
[2020-07-14] MEDS: IPRATROPIUM BR 0.02% INH SOLN 0.5 MG/2.5 ML VIAL INHALATION ×3 (03:04→13:55)
[2020-07-14 05:10] LABS: Hematocrit 37.3 % (42.0-52.0); Hemoglobin 11.8 g/dL (14.0-18.0); Mean Corpuscular HGB Conc 31.6 g/dl (32-36); Mean Corpuscular Hemoglobin 31.7 pg (26-34); Mean Corpuscular Volume 100.3 fl (80-100); Mean Platelet Volume 10.7 fl (7.4-10.4); Platelet Count Result 129 k/mm3 (150-375); Red Blood Count 3.72 M/mm3 (4.6-6.20); Red Cell Distribution Width 12.8 % (11.5-14.5); White Blood Count 13.5 K/mm3 (4.5-10.0)
[2020-07-14 05:28] LABS: Alveolar/Arterial O2 Gradient 593.5 mmHg; Base Excess ABG 1.6 mEq/l (+/-2.0); Carboxyhemoglobin 0.3 % THb (0-2.0); Fractional Inspired Oxygen 100 %; HCO3 ABG 28.6 mEq/l (22.0-26.0); Methemoglobin ABG 0.2 %THb (0-1.5); Oxygen Content ABG 18.3 %vol (16.0-22.0); Oxygen Saturation ABG 91.1 % (95.0-100.0); Oxyhemoglobin 91.6 % THb (90.0-100.0); PCO2 ABG 54.7 mmHg (35.0-45.0); PO2 ABG 64.8 mmHg (80.0-100.0); PO2 FiO2 Ratio Arterial Blood 0.65 %; Reduced Hemoglobin 7.9 %THb (0-5.0); Total Hemoglobin 14.2 g/dL (12.0-18.0); pH ABG 7.336 (7.350-7.450)
[2020-07-14 05:32] LABS: Device VENTILATOR; Modified Allen's Test Unable to perform; Site Drawn RIGHT RADIAL
[2020-07-14 05:33] LABS: Arterial Blood Gas PEEP 8 cmH2O; Arterial Blood Gas Tidal Volume 420 ml; Arterial Blood Gas Vent Mode CMV; Arterial Blood Gas Ventilator rate 32 /MIN
[2020-07-14 05:56] LABS: Albumin Level 2.6 g/dL (3.5-5.1); Anion Gap -1 mmol/L (8-16); Blood Urea Nitrogen 77 mg/dL (9-20); Calcium 8.6 mg/dL (8.4-10.2); Carbon Dioxide 35 mmol/L (22-30); Chloride 110 mmol/L (98-107); Estimated CRCL calculation 83 ml/min; Estimated Glomerular Filt Rate > 60; Glucose 132 mg/dL (75-110); Magnesium 3.8 mg/dL (1.6-2.3); Phosphorus 2.6 mg/dL (2.5-4.5); Potassium 5.3 mmol/L (3.4-5.0); Sodium 144 mmol/L (137-145)
[2020-07-14] MEDS: PROPOFOL IV EMULSION 100 ML 28.35 MG IV CONT ×5 (05:59→21:45)
[2020-07-14] MEDS: CENTRAL LINE FLUSH 10 ML IV PUSH ×2 (06:01→21:05)
--- NOTE | 2020-07-14 09:39 | PM.PNGS ---
Progress Note: A&P Assessment and Plan (1) Acute pneumothorax: Code(s): J93.83 - Other pneumothorax Status: Acute Assessment and Plan: air leak noted but lung fully re-expanded and chest tube in good position (2) Pneumonia due to 2019 novel coronavirus: Onset Date: ~06/2020 Code(s): U07.1 - COVID-19; J12.89 - Other viral pneumonia Status: Acute Assessment and Plan: by chest x-ray, this seems to be getting worse (3) Ventilator induced barotrauma: Code(s): T88.9XXA - Complication of surgical and medical care, unspecified, initial encounter Status: Acute (4) Acute respiratory failure with hypoxia: Code(s): J96.01 - Acute respiratory failure with hypoxia Status: Acute Subjective Subjective Date/Time Seen: 07/14/20 09:39 Patient reports: other ( intubated sedated on ventilator) Review of Systems Review of Systems: ROS unobtainable: Yes unobtainable due to endotracheal tube Exam Resp: Effort & Inspection: abnormal respiratory pattern ( on mechanical ventilator), symmetric chest movement and other ( chest tube in place, some air leak noted) Auscultation: crackles, rhonchi and diminished lung sounds Objective Data Vital Signs Vital Signs: Vital Signs - 24 hr 07/13/20 10:00 07/13/20 11:23 07/13/20 12:00 Temperature 37.2 C Pulse Rate 73 88 78 Respiratory Rate 20 20 Blood Pressure 104/66 113/66 Pulse Oximetry 93 95 93 07/13/20 14:00 07/13/20 14:24 07/13/20 14:26 Temperature Pulse Rate 75 77 82 Respiratory Rate 20 37 H Blood Pressure 113/74 Pulse Oximetry 94 92 07/13/20 16:00 07/13/20 17:10 07/13/20 18:00 Temperature 37.2 C Pulse Rate 73 76 69 Respiratory Rate 38 H 39 H Blood Pressure 114/76 111/78 Pulse Oximetry 95 92 98 07/13/20 19:50 07/13/20 19:51 07/13/20 20:00 Temperature 36.8 C Pulse Rate 68 68 83 Respiratory Rate 36 H 36 H Blood Pressure 95/53 L Pulse Oximetry 92 07/13/20 20:48 07/13/20 21:44 07/13/20 21:46 Temperature Pulse Rate 70 71 70 Respiratory Rate 35 H 38 H 38 H Blood Pressure Pulse Oximetry 93 07/13/20 22:00 07/13/20 23:14 07/14/20 00:00 Temperature 37.6 C Pulse Rate 70 75 78 Respiratory Rate 35 H Blood Pressure 100/62 Pulse Oximetry 92 92 07/14/20 02:00 07/14/20 02:04 07/14/20 02:08 Temperature Pulse Rate 94 93 91 Respiratory Rate 43 H 41 H Blood Pressure 117/68 Pulse Oximetry 87 L 07/14/20 02:17 07/14/20 02:24 07/14/20 02:40 Temperature Pulse Rate 92 88 86 Respiratory Rate 40 H 38 H 37 H Blood Pressure Pulse Oximetry 07/14/20 02:41 07/14/20 02:44 07/14/20 03:05 Temperature 38.1 C H Pulse Rate 86 86 85 Respiratory Rate 35 H 36 H 33 H Blood Pressure 100/63 Pulse Oximetry 88 L 91 07/14/20 03:37 07/14/20 04:00 07/14/20 04:41 Temperature 38.2 C H Pulse Rate 86 85 87 Respiratory Rate 35 H 37 H Blood Pressure 89/57 L Pulse Oximetry 91 07/14/20 04:42 07/14/20 04:55 07/14/20 05:55 Temperature 38.1 C H Pulse Rate 87 85 85 Respiratory Rate 37 H 37 H Blood Pressure Pulse Oximetry 93 07/14/20 05:59 07/14/20 06:00 07/14/20 06:45 Temperature 38.3 C H Pulse Rate 85 87 83 Respiratory Rate 37 H 37 H 37 H Blood Pressure 96/58 L Pulse Oximetry 92 07/14/20 08:10 07/14/20 08:19 Temperature Pulse Rate 79 88 Respiratory Rate 29 H Blood Pressure Pulse Oximetry 91 Intake/Output Intake/Output: Intake & Output 07/11/20 07/12/20 07/13/20 07/14/20 23:59 23:59 23:59 23:59 Intake Total 1598 1990 1867 899 Output Total 1220 1850 1350 1125 Balance 378 140 517 -226 Meds/Results Medications: Active Medications Generic Name Dose Route Start Last Admin Trade Name Freq PRN Reason Stop Dose Admin Acetaminophen 650 mg 06/27/20 23:51 07/07/20 16:22 Acetaminophen 325 Mg Tablet PO 650 mg Q4H PRN Administration Mild Pain (1-3) or Fever Albuterol 2 puff 1
[2020-07-14] MEDS: ENOXAPARIN 40 MG/0.4 ML SYRINGE SUB-Q (10:53)
[2020-07-14] MEDS: ZINC SULFATE 220 MG CAPSULE PO (10:54)
[2020-07-14] MEDS: ASCORBIC ACID 500 MG TABLET PO (10:54)
[2020-07-14] MEDS: CHOLECALCIFEROL 1,000 UNITS TABLET 5000 UNITS PO (10:54)
[2020-07-14] MEDS: PANTOPRAZOLE SODIUM IV 40 MG VIAL IV PUSH (10:54)
[2020-07-14] MEDS: FENTANYL 2,500MCG/NS250ML(*CRX 2,500 MCG/250 ML BAG 20 MCG IV CONT (12:15)
--- NOTE | 2020-07-14 12:29 | PM.PNNEP ---
Progress Note: A&P Assessment and Plan (1) Elevated BUN: Code(s): R79.9 - Abnormal finding of blood chemistry, unspecified Status: Acute Assessment and Plan: Danny has an elevated BUN and normal creatinine. Urine sodium is very low. Most likely he has pre renal azotemia and is on Decadron combining to cause the high BUN. Will continue IV fluids. Discussed with Dr. Parikh (2) Pneumonia due to COVID-19 virus: Code(s): U07.1 - COVID-19; J12.89 - Other viral pneumonia Status: Acute Assessment and Plan: The patient is on getting supportive care, Dexamethasone and remdesivir He is on isolation (3) Ventilator induced barotrauma: Code(s): T88.9XXA - Complication of surgical and medical care, unspecified, initial encounter Status: Acute Assessment and Plan: He had to have a chest tube placed. (4) Gastroesophageal reflux: Code(s): K21.9 - Gastro-esophageal reflux disease without esophagitis Status: Acute Assessment and Plan: He is on a PPI Subjective Date/time seen: 07/14/20 12:29 Interval history: Patient is sedated and on the ventilator. He looks comfortable. Review of Systems Review of Systems: ROS unobtainable: Yes unobtainable due to medical condition Exam Narrative: Exam Narrative: WDWN male on ventilator. skin no rash head ncat lungs coarse bilaterally cor reg no rub abd BS+ nontender and soft ext trace edema. Objective Data Vital Signs Vital Signs: Vital Signs - 24 hr 07/13/20 14:00 07/13/20 14:24 07/13/20 14:26 Temperature Pulse Rate 75 77 82 Respiratory Rate 20 37 H Blood Pressure 113/74 Pulse Oximetry 94 92 07/13/20 16:00 07/13/20 17:10 07/13/20 18:00 Temperature 37.2 C Pulse Rate 73 76 69 Respiratory Rate 38 H 39 H Blood Pressure 114/76 111/78 Pulse Oximetry 95 92 98 07/13/20 19:50 07/13/20 19:51 07/13/20 20:00 Temperature 36.8 C Pulse Rate 68 68 83 Respiratory Rate 36 H 36 H Blood Pressure 95/53 L Pulse Oximetry 92 07/13/20 20:48 07/13/20 21:44 07/13/20 21:46 Temperature Pulse Rate 70 71 70 Respiratory Rate 35 H 38 H 38 H Blood Pressure Pulse Oximetry 93 07/13/20 22:00 07/13/20 23:14 07/14/20 00:00 Temperature 37.6 C Pulse Rate 70 75 78 Respiratory Rate 35 H Blood Pressure 100/62 Pulse Oximetry 92 92 07/14/20 02:00 07/14/20 02:04 07/14/20 02:08 Temperature Pulse Rate 94 93 91 Respiratory Rate 43 H 41 H Blood Pressure 117/68 Pulse Oximetry 87 L 07/14/20 02:17 07/14/20 02:24 07/14/20 02:40 Temperature Pulse Rate 92 88 86 Respiratory Rate 40 H 38 H 37 H Blood Pressure Pulse Oximetry 07/14/20 02:41 07/14/20 02:44 07/14/20 03:05 Temperature 38.1 C H Pulse Rate 86 86 85 Respiratory Rate 35 H 36 H 33 H Blood Pressure 100/63 Pulse Oximetry 88 L 91 07/14/20 03:37 07/14/20 04:00 07/14/20 04:41 Temperature 38.2 C H Pulse Rate 86 85 87 Respiratory Rate 35 H 37 H Blood Pressure 89/57 L Pulse Oximetry 91 07/14/20 04:42 07/14/20 04:55 07/14/20 05:55 Temperature 38.1 C H Pulse Rate 87 85 85 Respiratory Rate 37 H 37 H Blood Pressure Pulse Oximetry 93 07/14/20 05:59 07/14/20 06:00 07/14/20 06:45 Temperature 38.3 C H Pulse Rate 85 87 83 Respiratory Rate 37 H 37 H 37 H Blood Pressure 96/58 L Pulse Oximetry 92 07/14/20 08:00 07/14/20 08:10 07/14/20 08:19 Temperature Pulse Rate 80 79 88 Respiratory Rate 29 H 29 H Blood Pressure Pulse Oximetry 89 L 91 07/14/20 11:53 Temperature 38.4 C H Pulse Rate Respiratory Rate Blood Pressure Pulse Oximetry Intake/Output Intake/Output: Intake & Output 07/11/20 07/12/20 07/13/20 07/14/20 23:59 23:59 23:59 23:59 Intake Total 1598 1990 1867 899 Output Total 1220 1850 1350 1625 Balance 378 140 517 -726 Meds/Results Medications: Active Medications Generic Name Dose Route Start Last Admin Trade
--- NOTE | 2020-07-14 12:41 | WPDINTPN ---
Progress Note: A&P Assessment and Plan (1) Acute respiratory failure with hypoxia: Code(s): J96.01 - Acute respiratory failure with hypoxia Status: Acute Assessment and Plan: Acute hypoxic respiratory failure secondary to COVID-19 pneumonia Intubated on 07/10 after he was on BiPAP alternating with high-flow oxygen for few days but failed and had to be intubated for impending respiratory failure. - ABGs and chest x-rays reviewed. Chest x-ray Diffuse patchy bilateral pulmonary interstitial infiltrates persist, relatively stable since 07/12/2020. Slight residual right apical pneumothorax; right thoracostomy tube - CMV 420/32/80/PEEP 8. Low tidal volume strategies been employed. Wean FiO2 and PEEP if tolerated, maintain O2 sats greater than 92% - Flolan can be weaned off as his oxygenation is improving. Attempt will be made to completely wean Flolan today. - Right chest tube in placed for spontaneous pneumothorax from barotrauma. Chest tube without any significant drainage. Chest tube is under wall suction. Surgery will continue to follow and chest tube care as per surgery service. (2) Pneumonia due to COVID-19 virus: Code(s): U07.1 - COVID-19; J12.89 - Other viral pneumonia Status: Acute Assessment and Plan: SARS-CoV-2 PCR positive -patient has completed a course of dexamethasone and Remdesivir -started patient on a 2nd course of dexamethasone which was initiated on 07/07/2020 -continue zinc, vitamin-D, vitamin-C -will monitor inflammatory markers . (3) Gastroesophageal reflux: Code(s): K21.9 - Gastro-esophageal reflux disease without esophagitis Status: Acute Assessment and Plan: Continue Protonix IV (4) DVT prophylaxis: Code(s): Z29.9 - Encounter for prophylactic measures, unspecified Status: Acute Assessment and Plan: Lovenox 40 mg SQ q.12 hours (5) Dietary counseling and surveillance: Code(s): Z71.3 - Dietary counseling and surveillance Status: Acute Assessment and Plan: Tolerating tube feeds, at goal Additional Plan Discussed with Temi, updated with patient's condition and plan of care. Answered all questions Code status: Full code Critical care time spent: 33 minutes Due to a high probability of clinically significant, life threatening deterioration, the patient required my highest level of preparedness to intervene emergently and I personally spent this critical care time directly and personally managing the patient. This critical care time included obtaining a history; examining the patient; pulse oximetry; ordering and review of studies; arranging urgent treatment with development of a management plan; evaluation of patient's response to treatment; frequent reassessment; and discussions with other providers. It was exclusive of separately billable procedures and treating other patients and teaching time. Please see Assessment and Plan section and the rest of the note for further information on patient assessment and treatment Subjective Date/time seen: 07/14/20 12:41 Interval history: Interval history: Reason for consult: Acute hypoxic respiratory failure, COVID-19 pneumonia, fevers Intubated on 07/10/2020, chest tube placed on 07/10/2020 07/14/2020: Remains intubated, 90% FiO2, peep of 8. Sedated with fentanyl, Versed and propofol 90% FIO2 AND PEEP OF 8. Sedated with fentanyl, Versed and propofol infusion. Patient is afebrile, urine output has been adequate patient is hyperkalemic with elevated BUN. Chest tube in place and to wall suction you and Review of Systems Review of Systems: ROS unobtainable: Yes unobtainable due to endotracheal tube Exam Narrative: Exam Narrative: Intubated and sedated HENMT: Other: ETT in place Eyes: Sclera: sclerae normal Pupils: Equal, round and reactive pupils present Neck: Neck: supple Resp: Effort & Inspection: normal respiratory effort Auscultation: rale
[2020-07-14] MEDS: ACETAMINOPHEN 325 MG TABLET 650 MG PO ×2 (12:42→21:06)
[2020-07-14] MEDS: SODIUM CHLORIDE 0.9% IV 1,000 ML 75 ML IV CONT (12:44)
--- NOTE | 2020-07-14 14:43 | PM.IMPN ---
Progress Note: A&P Assessment and Plan (1) Gastroesophageal reflux: Code(s): K21.9 - Gastro-esophageal reflux disease without esophagitis Status: Acute Assessment and Plan: Protonix (2) Pneumonia due to COVID-19 virus: Code(s): U07.1 - COVID-19; J12.89 - Other viral pneumonia Status: Acute (3) Acute respiratory failure with hypoxia: Code(s): J96.01 - Acute respiratory failure with hypoxia Status: Acute (4) Acute pneumothorax: Code(s): J93.83 - Other pneumothorax Status: Acute Additional Plan # COVID-19 pneumonia # acute hypoxic respiratory failure - diagnosed around 06/25, admitted 06/27 - completed remdesivir/dexamethasone, restarted dexamethasone 07/07- - supplements: zinc, vitamin-C, vitamin-D - Albuterol nebulizer scheduled - Tylenol for fever - will trend inflammatory markers Q 48 hours - convalescent plasma ordered 06/30/2020 - intubated 07/10- - ventilator CMV for 240/32/90%/peep 8 - sedation: Fentanyl, Versed, propofol - PRN levophed for hypotension - plan is transfer for ECMO # elevated BUN -likely secondary to steroids his is no sign of GI bleed -stool Hemoccult ordered # right-sided spontaneous pneumothorax -status post chest tube right chest -spontaneous pneumothorax 07/10/2020 status post chest tube no air leak -surgery to follow chest tube #other conditions -GERD: Protonix Diet: tube feeds at goal DVT prophylaxis: Lovenox 40mg BID for covid-19 GI prophylaxis: Protonix IV Code status: Full code Disposition: Intensive care unit, transferring to [facility] [address] for ECMO when bed is available Social: [phone] Subjective Date/time seen: 07/14/20 14:43 Patient examined. He is intubated and sedated. Patient has been accepted to [facility] for ECMO. Awaiting bed. Occult blood stool ordered for elevated BUN to rule out upper GI bleed. Steroids could also cause elevated BUN which is likely etiology. Otherwise stable on vent. Review of Systems Review of Systems: ROS unobtainable: Yes unobtainable due to endotracheal tube Exam Narrative: Exam Narrative: - GENERAL: Male intubated and sedated - HENT: Intubated with OG tube, neck supple - LUNGS: Diminished lung sounds, breathing with the ventilator, chest tube right chest with no air leak - CARDIOVASCULAR: Regular rate and rhythm. - ABDOMEN: Soft, non-tender and non-distended. - EXTREMITIES: No edema. Peripheral pulses 2+. - NEUROLOGIC: Unable to evaluate intubated, sedated - PSYCHIATRIC: Unable to evaluate intubated, sedated Objective Data Vital Signs Vital Signs: Vital Signs - 24 hr 07/13/20 16:00 07/13/20 17:10 07/13/20 18:00 Temperature 37.2 C Pulse Rate 73 76 69 Respiratory Rate 38 H 39 H Blood Pressure 114/76 111/78 Pulse Oximetry 95 92 98 07/13/20 19:50 07/13/20 19:51 07/13/20 20:00 Temperature 36.8 C Pulse Rate 68 68 83 Respiratory Rate 36 H 36 H Blood Pressure 95/53 L Pulse Oximetry 92 07/13/20 20:48 07/13/20 21:44 07/13/20 21:46 Temperature Pulse Rate 70 71 70 Respiratory Rate 35 H 38 H 38 H Blood Pressure Pulse Oximetry 93 07/13/20 22:00 07/13/20 23:14 07/14/20 00:00 Temperature 37.6 C Pulse Rate 70 75 78 Respiratory Rate 35 H Blood Pressure 100/62 Pulse Oximetry 92 92 07/14/20 02:00 07/14/20 02:04 07/14/20 02:08 Temperature Pulse Rate 94 93 91 Respiratory Rate 43 H 41 H Blood Pressure 117/68 Pulse Oximetry 87 L 07/14/20 02:17 07/14/20 02:24 07/14/20 02:40 Temperature Pulse Rate 92 88 86 Respiratory Rate 40 H 38 H 37 H Blood Pressure Pulse Oximetry 07/14/20 02:41 07/14/20 02:44 07/14/20 03:05 Temperature 38.1 C H Pulse Rate 86 86 85 Respiratory Rate 35 H 36 H 33 H Blood Pressure 100/63 Pulse Oximetry 88 L 91 07/14/20 03:37 07/14/20 04:00 07/14/20 04:41 Temperature 38.2 C H Pulse Rate 86 85 87 Respiratory Rate 35 H 37 H Blood Pressure 89/57 L
[2020-07-14] MEDS: NOREPINEPHRINE 8 MG/D5W 250 ML 8 MG/250 ML BAG 9.38 MG IV CONT (17:01)
[2020-07-14 17:04] LABS: Total Volume 24 Hour Urine 2700 ml; Urea Nitrogen 24 Hour Urine 50.4 G/DAY (12-20)
--- NOTE | 2020-07-14 18:37 | PM.TDS ---
Transfer Discharge Sum: Prov Provider Date of admission: 06/27/20 23:51 Primary care physician: IMPROVEMENT ENGINEER PHYSICIAN Admitting clinician: Lynnette Blanco MD Consults: 07/03/20 Consult to Physician Routine Comment: PHYSICIAN IS AWARE OF THE CONSULT Consulting Provider: Bhakti Macias flower planter/MD group to consult: Pulmonology Reason for consultation: Hypoxic respiratory failure Has provider been notified: Yes 07/06/20 Consult to Physician Routine Comment: Consulting Provider: Josh Parikh flower planter/MD group to consult: Dr. Mancilla CC/Director Of Income Tax Reason for consultation: Respiratory failure Has provider been notified: Yes 07/11/20 Consult to Physician Routine Comment: Consulting Provider: Amandeep Shaw flower planter/MD group to consult: Valeria Reason for consultation: right pneumothorax Has provider been notified: Yes 07/13/20 08:01 Consult to Physician Routine Comment: EXCHANGE NOTIFIED OF CONSULT Consulting Provider: Thomas Jesus flower planter/MD group to consult: Nephrology Reason for consultation: hyperkalemia, elevated BUN Has provider been notified: Yes DS: Admitting Diagnosis Admitting Diagnosis Admitting Diagnosis: COVID, Hypoxia, right pneumothorax DS: Discharge Diagnosis Discharge Diagnosis (1) Pneumonia due to COVID-19 virus: Code(s): U07.1 - COVID-19; J12.89 - Other viral pneumonia Status: Acute Assessment and Plan: # COVID-19 pneumonia # acute hypoxic respiratory failure - diagnosed around 06/25, admitted 06/27 - completed remdesivir/dexamethasone, restarted dexamethasone 07/07- - supplements: zinc, vitamin-C, vitamin-D - Albuterol nebulizer scheduled - Tylenol for fever - will trend inflammatory markers Q 48 hours - convalescent plasma ordered 06/30/2020 - intubated 07/10- - ventilator CMV for 240/32/90%/peep 8 - sedation: Fentanyl, Versed, propofol - PRN levophed for hypotension - plan is transfer to [facility] for ECMO - lovenox 40mg BID for covid 19 Full Code (2) Gastroesophageal reflux: Qualifiers: Esophagitis presence: without esophagitis Qualified Code(s): K21.9 - Gastro-esophageal reflux disease without esophagitis Code(s): K21.9 - Gastro-esophageal reflux disease without esophagitis Status: Acute Assessment and Plan: Protonix (3) Acute respiratory failure with hypoxia: Code(s): J96.01 - Acute respiratory failure with hypoxia Status: Acute Assessment and Plan: see above (4) Acute pneumothorax: Code(s): J93.83 - Other pneumothorax Status: Acute Assessment and Plan: # right-sided spontaneous pneumothorax -spontaneous pneumothorax while on Airvo -status post chest tube right chest 07/10/2020 status post chest tube no air leak -surgery following chest tube (5) Elevated BUN: Code(s): R79.9 - Abnormal finding of blood chemistry, unspecified Status: Acute Assessment and Plan: likely from steroids dexamethasone, no sign of GI bleed. Cr stable. Euvolemic on clinical exam. Transfer Discharge Sum: Med Medications Active and Home Medications: Home Medications azithromycin [Zithromax Z-Rinku] 250 mg PO DAILY 06/27/20 [History Confirmed 06/28/20] Nexium 40 mg PO DAILY 06/28/20 [History Confirmed 06/28/20] Active Medications Acetaminophen (Acetaminophen 325 Mg Tablet) 650 mg PO Q4H PRN PRN Reason: Mild Pain (1-3) or Fever Last Admin: 07/14/20 12:42 Dose: 650 mg Documented by: Albuterol (Albuterol Sulfate (*Sp) Aerosol 1 Puff) 2 puff INHALATION QIDRT PRN PRN Reason: Shortness Of Breath Last Admin: 07/10/20 01:42 Dose: 2 puff Documented by: Albuterol (Albuterol Sulfate Neb 2.5 Mg/0.5 Ml Inh) 2.5 mg INHALATION Q6HRT [facility] Ascorbic Acid (Ascorbic Acid 500 Mg Tablet) 500 mg PO DAILY [facility] Last Admin: 07/14/20 10:54 Dose: 500 mg Documented by: Calcium Carbonate (Calcium Carbonate (Tums) 500 Mg (200 Mg
--- NOTE | 2020-07-14 20:15 | ECG_ITS ---
Measurements Intervals [employer] Rate: 155 P: MT: 0 QRS: 4 QRSD: 88 T: 155 QT: 250 QTc: 402 Interpretive Statements ATRIAL FIBRILLATION WITH RAPID VENTRICULAR RESPONSE ST-T WAVE ABNORMALITY IN ANTEROLAT/HIGH LAT LEADS- CONSIDER ISCHEMIA BASELINE WANDER- I, II, V1-V3 ABNORMAL ECG Electronically Signed On 07-15-2020 12:20:20 [employer] by Fabio Torres D.O.
[2020-07-14] MEDS: AMIODARONE 150 MG/D5W 100 ML 150 MG/100 ML BAG 600 MG IV CONT (21:00)
[2020-07-14] MEDS: AMIODARONE 360 MG/D5W 200 ML 360 MG/200 ML BAG 33.33 MG IV CONT (21:00)
[2020-07-14] MEDS: ROCURONIUM BROMIDE 50 MG/5 ML VIAL IV PUSH (21:05)
--- NOTE | 2020-07-15 01:00 | PC.NURSE ---
Patient transported to [facility] via air vac. Report called to Andra REDDY. Notified of transfer and that patient belongings will need to be picked up at this facility.
--- NOTE | 2020-07-15 01:20 | PC.NURSE ---
pt transfered to [id number] via air evac
== END 2020-07-15 01:00 | disposition short-term general hospital (02) | DRG 207 ==
LOC: ANHED 22:10 → ANH3MEDSUR 06-28 01:06 → ANHICU 07-10 13:16 → ANH3MEDSUR 07-16 14:07 → ANHICU 07-16 14:07 → ANHIMU 07-16 14:07
PROVIDERS: Family Medicine; Internal Medicine; Internal Medicine Critical Care Medicine; Internal Medicine Nephrology; Admitting Provider Internal Medicine; Emergency Provider Emergency Medicine; Visit Provider Student in an Organized Health Care Education/Training Program
DX: U07.1 COVID-19 (principal); J12.89 Other viral pneumonia; J96.01 Acute respiratory failure with hypoxia; J95.859 Other complication of respirator [ventilator]; Y84.8 Other medical procedures as the cause of abnormal reaction of the patient, or of later complication, without mention of misadventure at the time of the procedure; E87.70 Fluid overload, unspecified; E87.5 Hyperkalemia; R79.9 Abnormal finding of blood chemistry, unspecified; K21.9 Gastro-esophageal reflux disease without esophagitis; Z79.899 Other long term (current) drug therapy; Z87.891 Personal history of nicotine dependence
CPT/HCPCS: 31500; 36415; 36569; 36600; 71045; 80048; 80053; 80069; 80076; 81050; 82375; 82550; 82570; 82728; 82805; 83050; 83605; 83615; 83735; 83880; 84100; 84156; 84300; 84460; 84540; 85025; 85027; 85380; 86140; 86900; 86901; 87070; 87086; 87205; 93005; 93306; 94002; 94003; 94640; 96374; 99285; A9270; C1729; C1751; C9113; J0282; J0692; J1100; J1644; J1650; J1815; J1940; J2060; J2250; J2704; J2765; J3010; J7030; J7040; J7050; J8540